=== PATIENT | female | born 1995 | race American Indian/Alaskan Native ===

== ENCOUNTER 2019-06-25 23:55 | Emergency (ER) | payer OTHER ==
[2019-06-26] MEDS ORDERED: SODIUM CHLORIDE 0.9% 1000 ML 1,000 ML IV ONE (01:18)
[2019-06-26 01:29] LABS: Hematocrit 41.9 % (30.3-42.9); Hemoglobin 13.5 gm/dl (10.1-14.3); Mean Corpuscular HGB Conc 32 % (30-34); Mean Corpuscular Volume 82 fl (79-97); Platelet Count 255 K/mm3 (140-440); Red Blood Count 5.11 M/mm3 (3.65-5.03); Red Cell Distribution Width 13.2 % (13.2-15.2)
[2019-06-26 01:46] LABS: Alanine Aminotransferase 18 units/L (7-56); Albumin 3.7 g/dL (3.9-5); BUN/Creatinine Ratio 13; Blood Urea Nitrogen 12 mg/dL (7-17); Calcium 9.1 mg/dL (8.4-10.2); Hemolysis Index 0
[2019-06-26 02:04] LABS: Bacteria,Urine 1+ /HPF (Negative); Bilirubin,Urine NEG (Negative); Blood,Urine LG (Negative); Color,Urine Yellow (Yellow); Mucus,Urine FEW /HPF; Urobilinogen,Urine < 2.0 mg/dL (<2.0)
[2019-06-26] MEDS ORDERED: ONDANSETRON 4 MG/2 ML INJ ONE (02:19)
[2019-06-26] MEDS ORDERED: INSULIN REGULAR, HUMAN 100 UNITS/1 ML IV ONE (02:20)
[2019-06-26] MEDS ORDERED: INSULIN REGULAR, HUMAN 100 UNITS/1 ML ONE (02:20)
[2019-06-26] MEDS ORDERED: ONDANSETRON 4 MG/2 ML INJ IV ONE (02:21)
[2019-06-26 02:24] LABS: HCG Qualitative,Urine Negative (Negative)
[2019-06-26 02:35] LABS: Basophils % (Manual) 0 % (0.0-1.8); Eosinophils % (Manual) 0 % (0.0-4.3); RBC Morphology Normal; Total Cells Counted 100
--- NOTE | 2019-06-26 03:46 | Emergency Department Report ---
ED Abdominal Pain HPI - General Chief Complaint: Hyperglycemia Stated Complaint: HYPERGLYCEMIA Time Seen by Provider: 06/26/19 01:04 Source: patient, EMS Mode of arrival: Stretcher Limitations: No Limitations - History of Present Illness Initial Comments: 23-year-old female with history of diabetes presents to ED with abdominal pain, nausea vomiting, elevated glucose x2 days. Patient states she has been out of her levemir. States her glucose is been in the 400s. She reports associated nausea and vomiting. She also reports suprapubic and right lower quadrant tenderness. She denies dysuria, reports urinary frequency. Patient denies any cough or sore throat. She denies any sick contacts, denies any known exposure to anyone with coronavirus. MD Complaint: abdominal pain -: days(s) (2) Location: RLQ, suprapubic Radiation: R flank Severity: moderate Consistency: constant Improves With: nothing Worsens With: nothing Associated Symptoms: nausea, vomiting, fever (subjective). denies: dysuria - Related Data Previous Rx's Medication Instructions Recorded Last Taken Type Ciprofloxacin HCl [Ciprofloxacin 500 mg PO Q12HR 7 Days #14 tab 06/26/19 Unknown Rx TAB] Insulin Detemir [Levemir] 22 unit SQ QHS #1 vial 06/26/19 Unknown Rx Phenazopyridine [Pyridium] 200 mg PO TID #6 tab 06/26/19 Unknown Rx traMADoL [Ultram] 50 mg PO Q6HR PRN #7 tablet 06/26/19 Unknown Rx Allergies Allergy/AdvReac Type Severity Reaction Status Date / Time No Known Allergies Allergy Verified 06/26/19 02:31 ED Review of Systems ROS: Stated complaint: HYPERGLYCEMIA Other details as noted in HPI Comment: All other systems reviewed and negative Constitutional: chills, fever Respiratory: denies: cough, shortness of breath Gastrointestinal: abdominal pain, nausea, vomiting. denies: diarrhea Genitourinary: frequency. denies: dysuria ED Past Medical Hx - Past Medical History Previous Medical History?: Yes Hx Diabetes: Yes - Surgical History Past Surgical History?: No - Social History Smoking Status: Never Smoker Substance Use Type: None - Medications Home Medications: Home Medications Medication Instructions Recorded Confirmed Last Taken Type Ciprofloxacin HCl [Ciprofloxacin 500 mg PO Q12HR 7 Days #14 tab 06/26/19 Unknown Rx TAB] Insulin Detemir [Levemir] 22 unit SQ QHS #1 vial 06/26/19 Unknown Rx Phenazopyridine [Pyridium] 200 mg PO TID #6 tab 06/26/19 Unknown Rx traMADoL [Ultram] 50 mg PO Q6HR PRN #7 tablet 06/26/19 Unknown Rx ED Physical Exam - General Limitations: No Limitations General appearance: alert, in no apparent distress - Head Head exam: Present: atraumatic, normocephalic - Eye Eye exam: Present: normal appearance - ENT ENT exam: Present: mucous membranes moist - Neck Neck exam: Present: normal inspection - Respiratory Respiratory exam: Present: normal lung sounds bilaterally. Absent: respiratory distress - Cardiovascular Cardiovascular Exam: Present: normal rhythm, tachycardia - GI/Abdominal GI/Abdominal exam: Present: soft, tenderness (RLQ and suprapubic). Absent: distended - Extremities Exam Extremities exam: Present: normal inspection - Back Exam Back exam: Absent: CVA tenderness (R), CVA tenderness (L) - Neurological Exam Neurological exam: Present: alert, oriented X3 - Psychiatric Psychiatric exam: Present: normal affect, normal mood - Skin Skin exam: Present: warm, dry, intact, normal color ED Course Vital Signs 06/25/19 06/26/19 06/26/19 23:59 01:12 03:55 Temperature 99.1 F 98.5 F Pulse Rate 113 H 110 H 98 H Respiratory 18 18 20 Rate Blood Pressure 157/96 Blood Pressure 151/96 173/103 [Left] O2 Sat by Pulse 98 97 98 Oximetry ED Medical Decision Making - Lab Data Result diagrams: 06/26/19 00:53 06/26/19 00:53 - Radiology Data Radiology results: report reviewed, image reviewed - Medical Decision Making - pt not in DKA - IV fluids, insulin, pain meds given - pt feeling much better, no emesis in ED - pt has UTI; CT scan negative for any acute intraabdominal findings - prescriptions given, including refill for levemir - outpt f/u advised, return precautions given - Differential Diagnosis DKA, , UTI, appendicitis Critical care attestation.: If time is entered above; I have spent that time in minutes in the direct care of this critically ill patient, excluding procedure time. ED Disposition Clinical Impression: Hyperglycemia, UTI (urinary tract infection) Disposition: TO HOME OR SELFCARE Is pt being admited?: No Condition: Stable Instructions: Diabetic Hyperglycemia (ED), Urinary Tract Infection in Women (ED) Prescriptions: Insulin Detemir [Levemir] 22 unit SQ QHS #1 vial Ciprofloxacin HCl [Ciprofloxacin TAB] 500 mg PO Q12HR 7 Days #14 tab Phenazopyridine [Pyridium] 200 mg PO TID #6 tab traMADoL [Ultram] 50 mg PO Q6HR PRN #7 tablet PRN Reason: Pain Referrals: HAILEY MCDANIEL MD [Primary Care Provider] - 3-5 Days [facility] [Provider Group] - 3-5 Days RICARDO ALBERTS MD [Staff Physician] - 3-5 Days Time of Disposition: 04:23
--- NOTE | 2019-06-26 03:57 | Cat Scan Report ---
CT ABDOMEN AND PELVIS WITH CONTRAST INDICATION / CLINICAL INFORMATION: Pt complains of R.L.Q. abdominal pain with N/V.. TECHNIQUE: Axial CT images were obtained through the abdomen and pelvis after 100 mL Omnipaque [address] scans at this location are performed using CT dose reduction for ALARA by means of automated exposure control. COMPARISON: None available. FINDINGS: LOWER CHEST: No significant abnormality. LIVER: No significant abnormality. GALLBLADDER: No significant abnormality. BILE DUCTS: No significant abnormality. PANCREAS: No significant abnormality. SPLEEN: No significant abnormality. ADRENALS: No significant abnormality. RIGHT KIDNEY and URETER: Several punctate intrarenal stones. No ureteral stone or hydronephrosis. LEFT KIDNEY and URETER: Several punctate intrarenal stones. No ureteral stone or hydronephrosis. STOMACH and SMALL BOWEL: No significant abnormality. COLON: No significant abnormality. APPENDIX: No significant abnormality. PERITONEUM: No free fluid. No free air. No fluid collection. LYMPH NODES: No significant adenopathy. AORTA and ARTERIES: No significant abnormality. IVC and VEINS: No significant abnormality. URINARY BLADDER: No significant abnormality. REPRODUCTIVE ORGANS: No significant abnormality. ADDITIONAL FINDINGS: None. SKELETAL SYSTEM: No significant abnormality. IMPRESSION: 1. Tiny punctate bilateral intrarenal stones but no ureteral stone or hydronephrosis. 2. No inflammatory process or bowel obstruction. Signer Name: Georgia Miller MD Signed: 06/26/2019 3:53 AM Workstation Name: [email or web address]
[2019-06-26] MEDS ORDERED: KETOROLAC 30 MG/1 ML INJ ONE (04:12)
[2019-06-26] MEDS ORDERED: KETOROLAC 30 MG/1 ML INJ IV ONE (04:18)
[2019-06-26 04:45] VITALS: BP 156/95
== END 2019-06-26 04:44 | disposition home or self-care (01) ==
LOC: ED 23:55
DX: E11.65 Type 2 diabetes mellitus with hyperglycemia (principal); N39.0 Urinary tract infection, site not specified; Z79.899 Other long term (current) drug therapy
CPT/HCPCS: 36415; 74177; 80053; 81001; 81025; 82805; 82962; 85007; 85025; 87086; 96361; 96374; 96375; 99284; J1885; J2405; J7030; Q9967; J1815

== ENCOUNTER 2019-06-27 17:31 | Emergency (ER) | payer SELFPAY ==
[2019-06-27] MEDS ORDERED: MORPHINE 4 MG/1 ML INJ IV ONE (18:30)
[2019-06-27] MEDS ORDERED: SODIUM CHLORIDE 0.9% 1000 ML 1,000 ML IV ONE ×2 (18:30)
[2019-06-27] MEDS ORDERED: ONDANSETRON 4 MG/2 ML INJ IV ONE (18:30)
--- NOTE | 2019-06-27 18:35 | Emergency Department Report ---
ED General Adult HPI - General Chief complaint: Abdominal Pain Stated complaint: N/V/ Time Seen by Provider: 06/27/19 18:24 Source: patient Mode of arrival: Ambulatory Limitations: No Limitations - History of Present Illness Initial comments: Patient is a 23-year-old female presents emergency room complaints of nausea and vomiting that began 4 days ago. She has associated suprapubic abdominal discomfort. Patient was evaluated in the emergency department on 06/25/2019 and diagnosed with UTI and given prescription for Pyridium, ciprofloxacin, tramadol, refill of her insulin. she had a CT abd pelvis at that time which showed intrarenal stones, otherwise no acute abnormality. She states that she has not been able to keep the pain medication or antibiotic down due to vomiting. She states that she is unable to tolerate p.o. intake. She denies any diarrhea, hematemesis, back pain, any other symptoms. She has a past medical history of insulin-dependent diabetes. She denies any allergies to medications. She states her last menstrual cycle was in March and that she has irregular cycles. - Related Data Previous Rx's Medication Instructions Recorded Last Taken Type Ciprofloxacin HCl [Ciprofloxacin 500 mg PO Q12HR 7 Days #14 tab 06/26/19 Unknown Rx TAB] Insulin Detemir [Levemir] 22 unit SQ QHS #1 vial 06/26/19 Unknown Rx Phenazopyridine [Pyridium] 200 mg PO TID #6 tab 06/26/19 Unknown Rx traMADoL [Ultram] 50 mg PO Q6HR PRN #7 tablet 06/26/19 Unknown Rx HYDROcodone/APAP 5-325 [[place] 1 each PO Q6HR PRN #10 tablet 06/27/19 Unknown Rx 5/325] Ondansetron [Zofran Odt] 4 mg PO Q8HR PRN #14 tab.rapdis 06/27/19 Unknown Rx Allergies Allergy/AdvReac Type Severity Reaction Status Date / Time No Known Allergies Allergy Verified 06/26/19 02:31 ED Review of Systems ROS: Stated complaint: N/V/ Other details as noted in HPI Comment: All other systems reviewed and negative ED Past Medical Hx - Past Medical History Previous Medical History?: Yes Hx Diabetes: Yes - Surgical History Past Surgical History?: No - Social History Smoking Status: Never Smoker Substance Use Type: None - Medications Home Medications: Home Medications Medication Instructions Recorded Confirmed Last Taken Type Ciprofloxacin HCl [Ciprofloxacin 500 mg PO Q12HR 7 Days #14 tab 06/26/19 Unknown Rx TAB] Insulin Detemir [Levemir] 22 unit SQ QHS #1 vial 06/26/19 Unknown Rx Phenazopyridine [Pyridium] 200 mg PO TID #6 tab 06/26/19 Unknown Rx traMADoL [Ultram] 50 mg PO Q6HR PRN #7 tablet 06/26/19 Unknown Rx HYDROcodone/APAP 5-325 [[place] 1 each PO Q6HR PRN #10 tablet 06/27/19 Unknown Rx 5/325] Ondansetron [Zofran Odt] 4 mg PO Q8HR PRN #14 tab.rapdis 06/27/19 Unknown Rx ED Physical Exam - General Limitations: No Limitations General appearance: alert, in no apparent distress - Head Head exam: Present: atraumatic, normocephalic - Eye Eye exam: Present: normal appearance - ENT ENT exam: Present: mucous membranes dry - Respiratory Respiratory exam: Present: normal lung sounds bilaterally. Absent: respiratory distress, wheezes, rales, rhonchi, stridor, chest wall tenderness, accessory muscle use, decreased breath sounds, prolonged expiratory - Cardiovascular Cardiovascular Exam: Present: regular rate, normal rhythm, normal heart sounds. Absent: systolic murmur, diastolic murmur, rubs, gallop - GI/Abdominal GI/Abdominal exam: Present: soft, normal bowel sounds, other (protuberant abdom en). Absent: distended, tenderness, guarding, rebound, rigid - Back Exam Back exam: Absent: CVA tenderness (R), CVA tenderness (L) - Neurological Exam Neurological exam: Present: alert, oriented X3 - Psychiatric Psychiatric exam: Present: normal affect, normal mood - Skin Skin exam: Present: warm, dry, intact ED Course Vital Signs 06/27/19 06/27/19 17:39 22:03 Temperature 97.8 F 98.8 F Pulse Rate 121 H 97 H Respiratory 20 16 Rate Blood Pressure 148/100 Blood Pressure 167/93 [Left] O2 Sat by Pulse 99 99 Oximetry ED Medical Decision Making - Lab Data Result diagrams: 06/27/19 18:04 06/27/19 20:42 Lab Results 06/27/19 06/27/19 06/27/19 Range/Units 17:56 18:04 18:04 WBC 13.6 H (4.5-11.0) K/mm3 RBC 4.86 (3.65-5.03) M/mm3 Hgb 12.6 (10.1-14.3) gm/dl Hct 39.9 (30.3-42.9) % MCV 82 (79-97) fl MCH 26 L (28-32) pg MCHC 32 (30-34) % RDW 13.4 (13.2-15.2) % Plt Count 231 (140-440) K/mm3 Lymph % (Auto) 4.4 L (13.4-35.0) % [place] % (Auto) 7.1 (0.0-7.3) % Eos % (Auto) 0.0 (0.0-4.3) % Baso % (Auto) 0.4 (0.0-1.8) % Lymph # 0.6 L (1.2-5.4) K/mm3 [place] # 1.0 H (0.0-0.8) K/mm3 Eos # 0.0 (0.0-0.4) K/mm3 Baso # 0.1 (0.0-0.1) K/mm3 Seg Neutrophils % 88.1 H (40.0-70.0) % Seg Neutrophils # 12.0 H (1.8-7.7) K/mm3 VBG pH (7.320-7.420) Sodium 129 L (137-145) mmol/L Potassium 4.2 (3.6-5.0) mmol/L Chloride 89.9 L (98-107) mmol/L Carbon Dioxide 14 L D (22-30) mmol/L Anion Gap 29 mmol/L BUN 12 (7-17) mg/dL Creatinine 0.9 (0.7-1.2) mg/dL Estimated GFR > 60 ml/min BUN/Creatinine Ratio 13 % Glucose 354 H (65-100) mg/dL POC Glucose 307 H (70-105) Calcium 9.2 (8.4-10.2) mg/dL Total Bilirubin 1.20 (0.1-1.2) mg/dL AST 15 (5-40) units/L ALT 21 (7-56) units/L Alkaline Phosphatase 83 (35-129) units/L Total Protein 8.7 H (6.3-8.2) g/dL Albumin 3.6 L (3.9-5) g/dL Albumin/Globulin Ratio 0.7 % Lipase (13-60) units/L HCG, Qual (Negative) Urine Color (Yellow) Urine Turbidity (Clear) Urine pH (5.0-7.0) Ur Specific [place] (1.003-1.030) Urine Protein (Negative) mg/dL Urine Glucose (UA) (Negative) mg/dL Urine Ketones (Negative) mg/dL Urine Blood (Negative) Urine Nitrite (Negative) Urine Bilirubin (Negative) Urine Urobilinogen (<2.0) mg/dL Ur Leukocyte Esterase (Negative) Urine WBC (Auto) (0.0-6.0) /HPF Urine RBC (Auto) (0.0-6.0) /HPF U Epithel Cells (Auto) (0-13.0) /HPF Urine Mucus /HPF 06/27/19 06/27/19 06/27/19 Range/Units 18:04 18:04 18:29 WBC (4.5-11.0) K/mm3 RBC (3.65-5.03) M/mm3 Hgb (10.1-14.3) gm/dl Hct (30.3-42.9) % MCV (79-97) fl MCH (28-32) pg MCHC (30-34) % RDW (13.2-15.2) % Plt Count (140-440) K/mm3 Lymph % (Auto) (13.4-35.0) % [place] % (Auto) (0.0-7.3) % Eos % (Auto) (0.0-4.3) % Baso % (Auto) (0.0-1.8) % Lymph # (1.2-5.4) K/mm3 [place] # (0.0-0.8) K/mm3 Eos # (0.0-0.4) K/mm3 Baso # (0.0-0.1) K/mm3 Seg Neutrophils % (40.0-70.0) % Seg Neutrophils # (1.8-7.7) K/mm3 VBG pH 7.343 (7.320-7.420) Sodium (137-145) mmol/L Potassium (3.6-5.0) mmol/L Chloride (98-107) mmol/L Carbon Dioxide (22-30) mmol/L Anion Gap mmol/L BUN (7-17) mg/dL Creatinine (0.7-1.2) mg/dL Estimated GFR ml/min BUN/Creatinine Ratio % Glucose (65-100) mg/dL POC Glucose (70-105) Calcium (8.4-10.2) mg/dL Total Bilirubin (0.1-1.2) mg/dL AST (5-40) units/L ALT (7-56) units/L Alkaline Phosphatase (35-129) units/L Total Protein (6.3-8.2) g/dL Albumin (3.9-5) g/dL Albumin/Globulin Ratio % Lipase 14 (13-60) units/L HCG, Qual Negative (Negative) Urine Color (Yellow) Urine Turbidity (Clear) Urine pH (5.0-7.0) Ur Specific [place] (1.003-1.030) Urine Protein (Negative) mg/dL Urine Glucose (UA) (Negative) mg/dL Urine Ketones (Negative) mg/dL Urine Blood (Negative) Urine Nitrite (Negative) Urine Bilirubin (Negative) Urine Urobilinogen (<2.0) mg/dL Ur Leukocyte Esterase (Negative) Urine WBC (Auto) (0.0-6.0) /HPF Urine RBC (Auto) (0.0-6.0) /HPF U Epithel Cells (Auto) (0-13.0) /HPF Urine Mucus /HPF 06/27/19 06/27/19 Range/Units 19:30 20:42 WBC (4.5-11.0) K/mm3 RBC (3.65-5.03) M/mm3 Hgb (10.1-14.3) gm/dl Hct (30.3-42.9) % MCV (79-97) fl MCH (28-32) pg MCHC (30-34) % RDW (13.2-15.2) % Plt Count (140-440) K/mm3 Lymph % (Auto) (13.4-35.0) % [place] % (Auto) (0.0-7.3) % Eos % (Auto) (0.0-4.3) % Baso % (Auto) (0.0-1.8) % Lymph # (1.2-5.4) K/mm3 [place] # (0.0-0.8) K/mm3 Eos # (0.0-0.4) K/mm3 Baso # (0.0-0.1) K/mm3 Seg Neutrophils % (40.0-70.0) % Seg Neutrophils # (1.8-7.7) K/mm3 VBG pH (7.320-7.420) Sodium 134 L (137-145) mmol/L Potassium 4.5 (3.6-5.0) mmol/L Chloride 98.1 (98-107) mmol/L Carbon Dioxide 16 L (22-30) mmol/L Anion Gap 24 mmol/L BUN 11 (7-17) mg/dL Creatinine 0.8 (0.7-1.2) mg/dL Estimated GFR > 60 ml/min BUN/Creatinine Ratio 14 % Glucose 291 H (65-100) mg/dL POC Glucose (70-105) Calcium 8.5 (8.4-10.2) mg/dL Total Bilirubin (0.1-1.2) mg/dL AST (5-40) units/L ALT (7-56) units/L Alkaline Phosphatase (35-129) units/L Total Protein (6.3-8.2) g/dL Albumin (3.9-5) g/dL Albumin/Globulin Ratio % Lipase (13-60) units/L HCG, Qual (Negative) Urine Color Yellow (Yellow) Urine Turbidity Clear (Clear) Urine pH 5.0 (5.0-7.0) Ur Specific [place] 1.017 (1.003-1.030) Urine Protein 100 mg/dl (Negative) mg/dL Urine Glucose (UA) >=500 (Negative) mg/dL Urine Ketones 80 (Negative) mg/dL Urine Blood Mod (Negative) Urine Nitrite Neg (Negative) Urine Bilirubin Neg (Negative) Urine Urobilinogen < 2.0 (<2.0) mg/dL Ur Leukocyte Esterase Neg (Negative) Urine WBC (Auto) 10.0 H (0.0-6.0) /HPF Urine RBC (Auto) 4.0 (0.0-6.0) /HPF U Epithel Cells (Auto) 6.0 (0-13.0) /HPF Urine Mucus Few /HPF Vital Signs 06/27/19 06/27/19 17:39 22:03 Temperature 97.8 F 98.8 F Pulse Rate 121 H 97 H Respiratory 20 16 Rate Blood Pressure 148/100 Blood Pressure 167/93 [Left] O2 Sat by Pulse 99 99 Oximetry - Medical Decision Making Patient is a 23-year-old female presents emergency room complaints of nausea and vomiting that began 4 days ago. She has associated suprapubic abdominal discomfort. Patient was evaluated in the emergency department on 06/25/2019 and diagnosed with UTI and given prescription for Pyridium, ciprofloxacin, tramadol, refill of her insulin. she had a CT abd pelvis at that time which showed intrarenal stones, otherwise no acute abnormality. She states that she has not been able to keep the pain medication or antibiotic down due to vomiting. She states that she is unable to tolerate p.o. intake. She denies any diarrhea, hematemesis, back pain, any other symptoms. She has a past medical history of insulin-dependent diabetes. She denies any allergies to medications. She states her last menstrual cycle was in March and that she has irregular cycles. Initial vitals with tachycardia which improved upon repeat. White blood cell count has improved from last visit. Labs show signs of dehydration. Venous pH is normal. Patient given 2 L of normal saline IV, Zofran, pain medications and symptoms improved. Dehydration has improved. Patient was able to tolerate p.o. intake without difficulty. Discussed case with Dr. Gross, ER attending who agreed with treatment plan and discharge home. Patient given prescription for Zofran and [place]. Discussed in detail with patient the importance of oral rehydration. Discussed strict return precautions with patient. Advised patient Please increase your water intake over the next several days. Please take medication as prescribed. Do not drive or operate heavy machinery while taking pain medication. Eat a bland diet. Avoid anything sugary or greasy. Please finish your antibiotics given during your last emergency room visit. Please follow-up with a primary care doctor for reexamination. Return to the emergency room immediately for any new or wor sening symptoms. - Differential Diagnosis UTI, gastritis, gastroenteritis, DKA, dehydration, electrolyte disturbance Critical care attestation.: If time is entered above; I have spent that time in minutes in the direct care of this critically ill patient, excluding procedure time. ED Disposition Clinical Impression: Suprapubic abdominal pain Nausea & vomiting Qualifiers: Vomiting type: unspecified Vomiting Intractability: non-intractable Qualified Code(s): R11.2 - Nausea with vomiting, unspecified Disposition: DC-01 TO HOME OR SELFCARE Is pt being admited?: No Does the pt Need Aspirin: No Condition: Stable Instructions: Acute Nausea and Vomiting (ED), Abdominal Pain (ED) Additional Instructions: Please increase your water intake over the next several days. Please take medication as prescribed. Do not drive or operate heavy machinery while taking pain medication. Eat a bland diet. Avoid anything sugary or greasy. Please finish your antibiotics given during your last emergency room visit. Please follow-up with a primary care doctor for reexamination. Return to the emergency room immediately for any new or worsening symptoms. Prescriptions: HYDROcodone/APAP 5-325 [[place] 5/325] 1 each PO Q6HR PRN #10 tablet PRN Reason: Pain , Severe (7-10) Ondansetron [Zofran Odt] 4 mg PO Q8HR PRN #14 tab.rapdis PRN Reason: Nausea And Vomiting Referrals: RICARDO ALBERTS MD [Staff Physician] - 3-5 Days [facility] [Provider Group] - 3-5 Days [facility] [Provider Group] - 3-5 Days Time of Disposition: 21:41 Print Language: BANGLADESHI
[2019-06-27 18:40] LABS: Basophils # (Auto) 0.1 K/mm3 (0.0-0.1); Basophils % (Auto) 0.4 % (0.0-1.8); Hematocrit 39.9 % (30.3-42.9); Hemoglobin 12.6 gm/dl (10.1-14.3); Lymphocytes # (Auto) 0.6 K/mm3 (1.2-5.4); Lymphocytes % (Auto) 4.4 % (13.4-35.0); Mean Corpuscular HGB Conc 32 % (30-34); Mean Corpuscular Volume 82 fl (79-97); Monocytes % (Auto) 7.1 % (0.0-7.3); Platelet Count 231 K/mm3 (140-440); Red Blood Count 4.86 M/mm3 (3.65-5.03); Red Cell Distribution Width 13.4 % (13.2-15.2)
[2019-06-27] MEDS ORDERED: cefTRIAXone/NS 1 GM/50 ML 1 GM/50 ML BAG IV ONE (18:51)
[2019-06-27 18:55] LABS: Alanine Aminotransferase 21 units/L (7-56); Albumin 3.6 g/dL (3.9-5); BUN/Creatinine Ratio 13; Blood Urea Nitrogen 12 mg/dL (7-17); Calcium 9.2 mg/dL (8.4-10.2); Hemolysis Index 0
[2019-06-27 19:40] LABS: Bilirubin,Urine NEG (Negative); Blood,Urine MOD (Negative); Color,Urine Yellow (Yellow); Mucus,Urine FEW /HPF; Urobilinogen,Urine < 2.0 mg/dL (<2.0)
[2019-06-27] MEDS ORDERED: KETOROLAC 30 MG/1 ML INJ IV ONE (20:50)
[2019-06-27] MEDS ORDERED: HYDROmorphone 1 MG/1 ML INJ IV ONE (20:56)
[2019-06-27 21:30] LABS: BUN/Creatinine Ratio 14; Blood Urea Nitrogen 11 mg/dL (7-17); Calcium 8.5 mg/dL (8.4-10.2); Hemolysis Index 29
[2019-06-27 22:05] VITALS: BP 167/93
== END 2019-06-27 22:03 | disposition home or self-care (01) ==
LOC: ED 17:31
DX: R11.2 Nausea with vomiting, unspecified (principal); R10.2 Pelvic and perineal pain; E11.9 Type 2 diabetes mellitus without complications; Z79.899 Other long term (current) drug therapy; Z79.2 Long term (current) use of antibiotics; Z79.4 Long term (current) use of insulin; Z88.8 Allergy status to other drugs, medicaments and biological substances
CPT/HCPCS: 36415; 80048; 80053; 81001; 82805; 82962; 83690; 84703; 85025; 87086; 96361; 96365; 96375; 99283; J0696; J1170; J1885; J2270; J2405; J7030

== ENCOUNTER 2019-06-28 22:02 | Inpatient (IN) | payer OTHER ==
[2019-06-28] MEDS ORDERED: FAMOTIDINE 20 MG/2 ML INJ IV ONE (22:36)
[2019-06-28] MEDS ORDERED: SODIUM CHLORIDE 0.9% 1000 ML 2,000 ML IV ONE (22:36)
[2019-06-28] MEDS ORDERED: HALOPERIDOL LACTATE 5 MG/1 ML INJ IM STA (22:36)
[2019-06-28 23:14] LABS: Hematocrit 41.9 % (30.3-42.9)
--- NOTE | 2019-06-28 23:24 | Emergency Department Report ---
ED General Adult HPI - General Chief complaint: Nausea/Vomiting/Diarrhea Stated complaint: NAUSEA AND VOMITING X'S 5 DAYS Time Seen by Provider: 06/28/19 22:16 PUI?: No Source: patient, EMS ( EMS documentation not available at time of chart dictation ), RN notes reviewed, old records reviewed Mode of arrival: Stretcher Limitations: No Limitations - History of Present Illness Initial comments: Patient is a 23-year-old female. She is not known to myself previously. She is a diabetic, and was reportedly diagnosed with diabetes a few years ago at [facility] [place]. She is not quite sure where her diabetes came from. She was prescribed a long-acting insulin, but had difficulty affording it, secondary to "I could not afford the $400." This is her third visit here to this department within the past week. She has been seen here multiple times for abdominal cramping, nausea vomiting, and hyperglycemia. She had a negative test. She has been having suprapubic and right lower quadrant pain for about the past week. It is associated with intractable nausea and vomiting. Patient states that she was admitted to the hospital last year for something similar, and "they treated my sugar in my urine, and I got better." The patient makes no complaint of headache, neck pain, chest pain, exertional shortness of breath, she also denies dysuria, hematuria and urinary discomfort as well as vaginal discharge. She does have a distant history of chlamydia. She is sexually active with one partner, and reports intermittent condom use. She is not sure if this feels like chlamydia. She was prescribed medication during previous evaluations for presumed urinary tract infection, with negative cultures, and multiple rounds of nausea and pain medicine. She is persistently throwing up as per her history. She denies tobacco consumption and marijuana consumption and does have intermittent relief with hot shower. -: Gradual, days(s) Location: abdomen Consistency: constant Improves with: rest Worsens with: movement, other (Vomiting) - Related Data Previous Rx's Medication Instructions Recorded Last Taken Type Ciprofloxacin HCl [Ciprofloxacin 500 mg PO Q12HR 7 Days #14 tab 06/26/19 06/28/19 Rx TAB] Insulin Detemir [Levemir] 22 unit SQ QHS #1 vial 06/26/19 Unknown Rx HYDROcodone/APAP 5-325 [[place] 1 each PO Q6HR PRN #10 tablet 06/27/19 06/28/19 Rx 5/325] Ondansetron [Zofran Odt] 4 mg PO Q8HR PRN #14 tab.rapdis 06/27/19 Unknown Rx Allergies Allergy/AdvReac Type Severity Reaction Status Date / Time tramadol AdvReac Vomiting Verified 06/29/19 00:45 ED Review of Systems ROS: Stated complaint: NAUSEA AND VOMITING X'S 5 DAYS Other details as noted in HPI Constitutional: malaise. denies: fever Eyes: denies: eye discharge Respiratory: denies: wheezing Cardiovascular: denies: syncope Gastrointestinal: abdominal pain, nausea, vomiting Genitourinary: as per HPI. denies: dysuria Musculoskeletal: as per HPI Skin: as per HPI Neurological: weakness Psychiatric: as per HPI Hematological/Lymphatic: as per HPI ED Past Medical Hx - Past Medical History Hx Diabetes: Yes - Social History Smoking Status: Never Smoker Substance Use Type: None - Medications Home Medications: Home Medications Medication Instructions Recorded Confirmed Last Taken Type Ciprofloxacin HCl [Ciprofloxacin 500 mg PO Q12HR 7 Days #14 tab 06/26/19 06/29/19 06/28/19 Rx TAB] Insulin Detemir [Levemir] 22 unit SQ QHS #1 vial 06/26/19 06/29/19 Unknown Rx HYDROcodone/APAP 5-325 [[place] 1 each PO Q6HR PRN #10 tablet 06/27/19 06/29/19 06/28/19 Rx 5/325] Ondansetron [Zofran Odt] 4 mg PO Q8HR PRN #14 tab.rapdis 06/27/19 06/29/19 Unknown Rx ED Physical Exam - General Limitations: No Limitations General appearance: alert, in no apparent distress, obese - Head Head exam: Present: atraumatic, normocephalic - Eye Eye exam: Present: normal appearance, EOMI - ENT ENT exam: Present: normal exam, normal orophraynx, mucous membranes moist, normal external ear exam - Neck Neck exam: Present: normal inspection, full ROM. Absent: tenderness, meningismus - Respiratory Respiratory exam: Present: normal lung sounds bilaterally. Absent: respiratory distress - Cardiovascular Cardiovascular Exam: Present: normal rhythm, tachycardia, normal heart sounds. Absent: systolic murmur, diastolic murmur, rubs, gallop - GI/Abdominal GI/Abdominal exam: Present: soft. Absent: distended, tenderness, guarding, rebound, rigid, pulsatile mass - External exam: Present: erythema, lesions, other (Whitish lesions noted, suggestive of candidiasis) Speculum exam: Present: normal speculum exam, vaginal bleeding Bi-manual exam: Present: normal bi-manual exam, other (Chaperoned by Mary santos). Absent: cervical motion tendernes, adnexal tenderness, adnexal mass, uterine enlargement, uterine tenderness - Extremities Exam Extremities exam: Present: normal inspection, full ROM, other (2+ pulses noted in the bilateral upper and lower extremities. There is no palpable cord. negative Homans sign. Muscular compartments are soft. The pelvis is stable.). Absent: pedal edema, calf tenderness - Back Exam Back exam: Present: normal inspection, full ROM. Absent: tenderness, CVA tenderness (R), CVA tenderness (L), paraspinal tenderness, vertebral tenderness - Neurological Exam Neurological exam: Present: alert, normal gait, other (There is no facial droop. The tongue is midline. Extraocular movements are intact bilaterally. There is 5 out of 5 strength in bilateral upper and lower extremities. Sensation is intact to light touch bilateral upper and lower extremities. There is a normal gait.). Absent: motor sensory deficit - Psychiatric Psychiatric exam: Present: flat affect - Skin Skin exam: Present: warm, dry, intact, normal color. Absent: rash ED Course Vital Signs 06/28/19 06/28/19 06/28/19 22:08 22:10 22:15 Temperature 98.4 F Pulse Rate 102 H 99 H 101 H Respiratory 20 45 H 21 Rate Blood Pressure 178/111 178/111 O2 Sat by Pulse 98 98 Oximetry 06/28/19 06/28/19 06/28/19 22:31 22:45 23:01 Temperature Pulse Rate 104 H 106 H 109 H Respiratory 19 22 14 Rate Blood Pressure 178/111 178/111 163/109 O2 Sat by Pulse 97 98 97 Oximetry 06/28/19 06/28/19 06/28/19 23:15 23:31 23:45 Temperature Pulse Rate 102 H 105 H 97 H Respiratory 17 21 28 H Rate Blood Pressure 163/109 138/119 138/119 O2 Sat by Pulse 98 98 99 Oximetry 06/29/19 06/29/19 06/29/19 00:01 00:03 00:31 Temperature Pulse Rate 109 H 111 H 114 H Respiratory 22 24 20 Rate Blood Pressure 159/114 159/114 214/144 O2 Sat by Pulse 97 98 97 Oximetry 06/29/19 06/29/19 06/29/19 01:01 01:31 01:51 Temperature Pulse Rate 104 H 102 H 97 H Respiratory 30 H 28 H 20 Rate Blood Pressure 178/95 192/110 192/110 O2 Sat by Pulse 97 98 98 Oximetry 06/29/19 02:01 Temperature Pulse Rate 111 H Respiratory 20 Rate Blood Pressure 202/107 O2 Sat by Pulse 98 Oximetry - Reevaluation(s) Reevaluation #1: 06/28/19 23:22 Differential diagnosis, including but not limited to: Gastroparesis, dehydration, electrolyte derangement, chlamydia, constipation, functional abdominal pain Assessment and plan: 23-year-old female with what appears to be poorly controlled diabetes, multiple evaluations for nausea, vomiting and abdominal pain, recently had a CT scan of the abdomen pelvis which was negative for acute disease, urinalyses are reviewed and appreciated, did not endorse dysuria, frequency, irritative or obstructive urinary symptoms, with negative cultures, I suspect that the patient is experiencing probable gastroparesis. She declined a physical exam at this time, and requested medication. We will treat her with fluids, haloperidol, and famotidine. We will reassess. Reevaluation #2: 06/28/19 23:25 Respiratory rate of 45 that is documented is most likely an error, when I was evaluating the patient, she was not tachypneic. Reevaluation #3: 06/28/19 23:56 Laboratory studies are reviewed, suggest metabolic acidosis, and hyponatremia, suspect hypovolemic, hyponatremia, and metabolic acidosis/decreased CO2 at 11. When the patient was here yesterday, she also had an anion gap acidosis, and CO2 of 15 and 14. Patient has evidence of dehydration, and electrolyte derangement, and acidosis. She meets criteria for hospitalization and admission for correction of metabolic abnormalities. Discussed this plan of care with the patient, who is amenable. [facility] physician, Dr. Aidee isidro has graciously accepted the patient to the medical service. ED Medical Decision Making - Lab Data Result diagrams: 06/29/19 05:45 06/29/19 05:45 Vital Signs 06/28/19 06/28/19 22:08 22:10 Temperature 98.4 F Pulse Rate 102 H 99 H Respiratory 20 45 H Rate Blood Pressure 178/111 O2 Sat by Pulse 98 Oximetry Lab Results 06/28/19 Range/Units 23:01 Hgb 13.0 (10.1-14.3) gm/dl Hct 41.9 (30.3-42.9) % Plt Count 255 (140-440) K/mm3 - EKG Data -: EKG Interpreted by Me EKG shows normal: sinus rhythm, axis Rate: normal - EKG Data When compared to previous EKG there are: previous EKG unavailable 06/28/19 23:24 EKG today shows sinus rhythm, 95 bpm, normal axis, QTC prolonged at 450 ms, QT 357 ms, [place] interval within normal limits, high left ventricular voltage, poor R wave progression, borderline atrial enlargement, abnormal EKG, not a STEMI, no prior for comparison. - Radiology Data Radiology results: report reviewed, image reviewed Previous CT scan abdomen pelvis is reviewed and appreciated Critical care attestation.: If time is entered above; I have spent that time in minutes in the direct care of this critically ill patient, excluding procedure time. ED Disposition Clinical Impression: Metabolic acidosis, Nausea & vomiting, Hyperglycemia, Dehydration, Hyponatremia Disposition: DC-09 OP ADMIT IP TO THIS HOSP Is pt being admited?: Yes Does the pt Need Aspirin: No Condition: Good
[2019-06-28 23:30] LABS: Alanine Aminotransferase 18 units/L (7-56); Albumin 3.3 g/dL (3.9-5); BUN/Creatinine Ratio 15; Blood Urea Nitrogen 12 mg/dL (7-17); Calcium 9.2 mg/dL (8.4-10.2); Hemolysis Index 10
[2019-06-29 00:15] LABS: Bacteria,Urine 2+ /HPF (Negative); Bilirubin,Urine NEG (Negative); Blood,Urine LG (Negative); Color,Urine Yellow (Yellow); Mucus,Urine FEW /HPF; Urobilinogen,Urine < 2.0 mg/dL (<2.0)
[2019-06-29 00:21] LABS: Protein,Urine >500 mg/dL (Negative)
--- NOTE | 2019-06-29 01:55 | History and Physical Report ---
History of Present Illness Date of examination: 06/28/19 Date of admission: 06/29/19 00:00 Chief complaint: Persistent vomiting for 3 days + History of present illness: 23-year-old with history of type 1 diabetes on long-acting insulin Levemir 22 units at nighttime and not taking her Levemir because of the cost involved comes in for recurrent vomiting for the last 3 days. Patient is seen in the emergency room for the last 3 days and wrote and was discharged. Patient's blood glucose levels have been high. Vomiting about 4-6 times a day. No diarrhea. No fever or chills. Patient also has been having suprapubic and right lower quadrant pain for about 1 week. No neck pain or cough or shortness of breath. No exposure to coronavirus. No recent travel. Past Medical History Type I diabetes: Yes Social History Smoking Status: Never Smoker Substance Use Type: None Surgical history N/a Family history Htn - Medications Home Medications: Home Medications Medication Instructions Recorded Confirmed Last Taken Type Ciprofloxacin HCl [Ciprofloxacin 500 mg PO Q12HR 7 Days #14 tab 06/26/19 Unknown Rx TAB] Insulin Detemir [Levemir] 22 unit SQ QHS #1 vial 06/26/19 Unknown Rx Phenazopyridine [Pyridium] 200 mg PO TID #6 tab 06/26/19 Unknown Rx traMADoL [Ultram] 50 mg PO Q6HR PRN #7 tablet 06/26/19 Unknown Rx HYDROcodone/APAP 5-325 [[place] 1 each PO Q6HR PRN #10 tablet 06/27/19 Unknown Rx 5/325] Ondansetron [Zofran Odt] 4 mg PO Q8HR PRN #14 tab.rapdis 06/27/19 Unknown Rx Review of Systems ROS: Constitutional no weight loss or weight gain no fever or chills HEENT no sore throat no post nasal drip no diplopia Neck no neck stiffness no lymph gland enlargement Chest and lungs no shortness of breath cough or wheezing CVS no chest pain no diaphoresis no palpitations GI nausea and vomiting for 3 days 4-6 times a day. Genitourinary system no dysuria no flank pain Musculoskeletal system no muscle pains no joint pains [employer] no syncope no seizures Skin no rash no itching Psychiatric no depression no homicidal or suicidal tendencies Hematologic no lymphedema or bruising Endocrine no polydipsia no polyuria no cold intolerance no heat intolerance Stated complaint: NAUSEA AND VOMITING X'S 5 DAYS Other details as noted in HPI PUI?: No Medications and Allergies Allergies Allergy/AdvReac Type Severity Reaction Status Date / Time tramadol AdvReac Vomiting Verified 06/29/19 00:45 Home Medications Medication Instructions Recorded Confirmed Last Taken Type Ciprofloxacin HCl [Ciprofloxacin 500 mg PO Q12HR 7 Days #14 tab 06/26/19 06/29/19 06/28/19 Rx TAB] Insulin Detemir [Levemir] 22 unit SQ QHS #1 vial 06/26/19 06/29/19 Unknown Rx HYDROcodone/APAP 5-325 [[place] 1 each PO Q6HR PRN #10 tablet 06/27/19 06/29/19 0 06/28/19 Rx 5/325] Ondansetron [Zofran Odt] 4 mg PO Q8HR PRN #14 tab.rapdis 06/27/19 06/29/19 Unknown Rx Exam - Constitutional Vitals: Temp Pulse Resp BP Pulse Ox 98.4 F 102 H 28 H 192/110 98 06/28/19 22:08 06/29/19 01:31 06/29/19 01:31 06/29/19 01:31 06/29/19 01:31 General appearance: Present: no acute distress, well-nourished - EENT Eyes: Present: PERRL ENT: hearing intact, clear oral mucosa - Neck Neck: Present: supple, normal ROM - Respiratory Respiratory effort: normal Respiratory: bilateral: CTA - Cardiovascular Heart rate: 95 Rhythm: regular Heart Sounds: Present: S1 & S2. Absent: rub, click - Extremities Extremities: no ischemia, pulses intact, pulses symmetrical, No edema Peripheral Pulses: within normal limits - Abdominal General gastrointestinal: Present: soft, tender, non-distended, normal bowel sounds Female genitourinary: Present: normal - Integumentary Integumentary: Present: clear, warm, dry - Musculoskeletal Musculoskeletal: gait normal, strength equal bilaterally - Psychiatric Psychiatric: appropriate mood/affect, intact judgment & insight - Neurologic Neurologic: CNII-XII intact, moves all extremities - Allied Health Allied health notes reviewed: nursing, case management Results - Labs CBC & Chem 7: 06/28/19 23:01 06/28/19 23:01 Labs: Laboratory Last Values Hgb 13.0 gm/dl (10.1-14.3) 06/28/19 23:01 Hct 41.9 % (30.3-42.9) 06/28/19 23:01 Plt Count 255 K/mm3 (140-440) 06/28/19 23:01 Sodium 128 mmol/L (137-145) L 06/28/19 23:01 Potassium 4.4 mmol/L (3.6-5.0) 06/28/19 23:01 Chloride 96.2 mmol/L (98-107) L 06/28/19 23:01 Carbon Dioxide 11 mmol/L (22-30) L 06/28/19 23:01 Anion Gap 25 mmol/L 06/28/19 23:01 BUN 12 mg/dL (7-17) 06/28/19 23:01 Creatinine 0.8 mg/dL (0.7-1.2) 06/28/19 23:01 Estimated GFR > 60 ml/min 06/28/19 23:01 BUN/Creatinine Ratio 15 % 06/28/19 23: Glucose 276 mg/dL (65-100) H 06/28/19 23:01 Calcium 9.2 mg/dL (8.4-10.2) 06/28/19 23:01 Magnesium 2.30 mg/dL (1.7-2.3) 06/28/19 23:01 Total Bilirubin 0.80 mg/dL (0.1-1.2) 06/28/19 23:01 AST 13 units/L (5-40) 06/28/19 23:01 ALT 18 units/L (7-56) 06/28/19 23:01 Alkaline Phosphatase 78 units/L (35-129) 06/28/19 23:01 Total Creatine Kinase 25 units/L (30-135) L 06/28/19 23:01 Total Protein 9.0 g/dL (6.3-8.2) H 06/28/19 23:01 Albumin 3.3 g/dL (3.9-5) L 06/28/19 23:01 Albumin/Globulin Ratio 0.6 % 06/28/19 23:01 Lipase 17 units/L (13-60) 06/28/19 23:01 Urine Color Yellow (Yellow) 06/28/19 23:50 Urine Turbidity Clear (Clear) 06/28/19 23:50 Urine pH 5.0 (5.0-7.0) 06/28/19 23:50 Ur Specific [place] 1.016 (1.003-1.030) 06/28/19 23:50 Urine Protein >500 mg/dL (Negative) 06/28/19 23:50 Urine Glucose (UA) >=500 mg/dL (Negative) 06/28/19 23:50 Urine Ketones 80 mg/dL (Negative) 06/28/19 23:50 Urine Blood Lg (Negative) 06/28/19 23:50 Urine Nitrite Neg (Negative) 06/28/19 23:50 Urine Bilirubin Neg (Negative) 06/28/19 23:50 Urine Urobilinogen < 2.0 mg/dL (<2.0) 06/28/19 23:50 Ur Leukocyte Esterase Neg (Negative) 06/28/19 23:50 Urine WBC (Auto) 7.0 /HPF (0.0-6.0) H 06/28/19 23:50 Urine RBC (Auto) 173.0 /HPF (0.0-6.0) 06/28/19 23:50 U Epithel Cells (Auto) 1.0 /HPF (0-13.0) 06/28/19 23:50 Urine Bacteria (Auto) 2+ /HPF (Negative) 06/28/19 23:50 Urine Mucus Few /HPF 06/28/19 23:50 Urine Yeast (Budding) Few /HPF 06/28/19 23:50 Short CBC 06/28/19 Range/Units 23:01 Hgb 13.0 (10.1-14.3) gm/dl Hct 41.9 (30.3-42.9) % Plt Count 255 (140-440) K/mm3 BMP 06/28/19 23:01 Sodium 128 L Potassium 4.4 Chloride 96.2 L Carbon Dioxide 11 L BUN 12 Creatinine 0.8 Glucose 276 H Calcium 9.2 Cardiac Enzymes 06/28/19 Range/Units 23:01 Total Creatine Kinase 25 L (30-135) units/L Liver Function 06/28/19 Range/Units 23:01 Total Bilirubin 0.80 (0.1-1.2) mg/dL AST 13 (5-40) units/L ALT 18 (7-56) units/L Alkaline Phosphatase 78 (35-129) units/L Albumin 3.3 L (3.9-5) g/dL Urine 06/28/19 Range/Units 23:50 Urine Color Yellow (Yellow) Urine pH 5.0 (5.0-7.0) Ur Specific [place] 1.016 (1.003-1.030) Urine Protein >500 (Negative) mg/dL Urine Glucose (UA) >=500 (Negative) mg/dL Microbiology: Microbiology 06/28/19 23:50 Vaginal Wet Prep - Final - Imaging and Cardiology EKG: report reviewed (Heart rate 95/min no acute ST-T wave changes.) Gonsales/IV: IV Catheter Type [Left Hand] Peripheral IV Assessment and Plan Advance Directives: Yes (Full code) VTE prophylaxis?: Chemical Plan of care discussed with patient/family: Yes - Patient Problems (1) Gastroparesis Current Visit: Yes Status: Acute Plan to address problem: IV Zofran and IV metoclopramide for now IV fluids. Nuclear medicine motility study was not ordered (2) Uncontrolled diabetes mellitus Current Visit: Yes Status: Acute Qualifiers: Diabetes mellitus type: type 1 Plan to address problem: Insulin subcu every 4 hours High-dose sliding scale protocol Novolin 70/30 20 units twice a day Patient cannot afford Levemir Patient was counseled that Novolin 70/30 is available for $25 at [facility] without prescription Will defer to primary team regarding discharge medications (3) Hyponatremia Current Visit: Yes Status: Acute Plan to address problem: With blood glucose levels being controlled sodium level may normalize IV normal saline for now (4) Metabolic acidosis Current Visit: Yes Status: Acute Plan to address problem: Metabolic acidosis secondary to uncontrolled diabetes and gastroparesis Corrected blood glucose levels and fluid depletion Recheck bicarb level (5) UTI (urinary tract infection) Current Visit: No Status: Acute Qualifiers: Urinary tract infection type: acute cystitis Plan to address problem: IV Rocephin for now (6) DVT prophylaxis Current Visit: Yes Status: Acute Plan to address problem: Heparin subcutaneous and GI prophylaxis
[2019-06-29] MEDS ORDERED: oxyCODONE /ACETAMINOPHEN 5-325MG TAB PO PRN (01:57)
[2019-06-29] MEDS ORDERED: METOCLOPRAMIDE 10 MG/2 ML INJ IV PRN (01:57)
[2019-06-29] MEDS ORDERED: HYDROcodone/ACETAMINOPHEN 5-325 MG TAB PO PRN (01:57)
[2019-06-29] MEDS: HYDROmorphone 1 MG/1 ML INJ IV PRN ×5 (02:55→20:24)
[2019-06-29] MEDS: HEPARIN 5,000 UNIT/1 ML VIAL SUB-Q SCH ×3 (02:56→22:38)
[2019-06-29] MEDS: SODIUM CHLORIDE 0.9% 1000 ML 1,000 ML IV SCH ×3 (03:08→21:13)
[2019-06-29] MEDS: INSULIN LISPRO 100 UNIT/ML SUB-Q SCH ×5 (03:37→19:09)
[2019-06-29] MEDS: cefTRIAXone/NS 1 GM/50 ML 1 GM/50 ML BAG IV SCH (06:02)
[2019-06-29 06:11] LABS: Basophils % (Auto) 0.2 % (0.0-1.8); Eosinophils % (Auto) 0.1 % (0.0-4.3); Hematocrit 37.1 % (30.3-42.9); Hemoglobin 11.8 gm/dl (10.1-14.3); Lymphocytes # (Auto) 1.2 K/mm3 (1.2-5.4); Lymphocytes % (Auto) 9.5 % (13.4-35.0); Mean Corpuscular HGB Conc 32 % (30-34); Mean Corpuscular Volume 84 fl (79-97); Monocytes % (Auto) 7.5 % (0.0-7.3); Platelet Count 262 K/mm3 (140-440); Red Blood Count 4.44 M/mm3 (3.65-5.03); Red Cell Distribution Width 13.3 % (13.2-15.2)
[2019-06-29 06:54] LABS: Alanine Aminotransferase 15 units/L (7-56); Albumin 3.5 g/dL (3.9-5); BUN/Creatinine Ratio 14; Blood Urea Nitrogen 13 mg/dL (7-17); Calcium 8.9 mg/dL (8.4-10.2); Hemolysis Index 1
[2019-06-29] MEDS ORDERED: INSULIN NPH/REGULAR 70/30 INJ SUB-Q SCH (08:00)
[2019-06-29] MEDS: ONDANSETRON 4 MG/2 ML INJ IV PRN ×2 (09:21→20:24)
--- NOTE | 2019-06-29 16:14 | Progress Note ---
Assessment and Plan Assessment and plan: -- Gastroparesis Current Visit: Yes Status: Acute IV Zofran and IV metoclopramide for now IV fluids. Supportive care -- Uncontrolled diabetes mellitus Current Visit: Yes Status: Acute Insulin subcu every 4 hours High-dose sliding scale protocol Novolin 70/30 20 units twice a day Patient cannot afford Levemir Patient was counseled that Novolin 70/30 is available for $25 at [facility] without prescription Will defer to primary team regarding discharge medications -- Hyponatremia/pseudohyponatremia Current Visit: Yes Status: Acute With blood glucose levels being controlled sodium level may normalize IV normal saline for now --Metabolic acidosis Current Visit: Yes Status: Acute Metabolic acidosis secondary to uncontrolled diabetes and gastroparesis Corrected blood glucose levels and fluid depletion Recheck bicarb level -- UTI (urinary tract infection) Current Visit: No Status: Acute IV Rocephin for now --Morbid obesity; BMI 43.3 patient needs weight reduction when medically stable Diet modification, exercise as tolerated and weight reduction -- DVT prophylaxis Current Visit: Yes Status: Acute Heparin subcutaneous and GI prophylaxis Monitor closely and adjust management as needed Possible discharge in 1 to 2 days if stable History Interval history: Patient seen and examined Patient's chart, medications and tests reviewed Patient complains of severe nausea and vomiting Unable to keep anything down Mild distress Vital signs reviewed PUI?: No Hospitalist Physical - Constitutional Vitals: Temp Pulse Resp BP Pulse Ox 98.2 F 104 H 16 145/92 93 06/29/19 11:37 06/29/19 11:37 06/29/19 11:37 06/29/19 11:37 06/29/19 11:37 General appearance: Present: mild distress, well-nourished, obese (Morbid obese) - EENT Eyes: Present: PERRL, EOM intact - Neck Neck: Present: supple, normal ROM - Respiratory Respiratory effort: normal Respiratory: bilateral: diminished, negative: rales, rhonchi, wheezing - Cardiovascular Rhythm: regular Heart Sounds: Present: S1 & S2 - Extremities Extremities: no ischemia, No edema - Abdominal General gastrointestinal: soft, non-tender, non-distended, normal bowel sounds - Integumentary Integumentary: Present: clear, warm - Psychiatric Psychiatric: appropriate mood/affect, cooperative - Neurologic Neurologic: moves all extremities Results - Labs CBC & Chem 7: 06/29/19 05:45 06/29/19 05:45 Labs: Laboratory Last Values WBC 12.8 K/mm3 (4.5-11.0) H 06/29/19 05:45 RBC 4.44 M/mm3 (3.65-5.03) 06/29/19 05:45 Hgb 11.8 gm/dl (10.1-14.3) 06/29/19 05:45 Hct 37.1 % (30.3-42.9) 06/29/19 05:45 MCV 84 fl (79-97) 06/29/19 05:45 MCH 27 pg (28-32) L 06/29/19 05:45 MCHC 32 % (30-34) 06/29/19 05:45 RDW 13.3 % (13.2-15.2) 06/29/19 05:45 Plt Count 262 K/mm3 (140-440) 06/29/19 05:45 Lymph % (Auto) 9.5 % (13.4-35.0) L 06/29/19 05:45 [place] % (Auto) 7.5 % (0.0-7.3) H 06/29/19 05:45 Eos % (Auto) 0.1 % (0.0-4.3) 06/29/19 05:45 Baso % (Auto) 0.2 % (0.0-1.8) 06/29/19 05:45 Lymph # 1.2 K/mm3 (1.2-5.4) 06/29/19 05:45 [place] # 1.0 K/mm3 (0.0-0.8) H 06/29/19 05:45 Eos # 0.0 K/mm3 (0.0-0.4) 06/29/19 05:45 Baso # 0.0 K/mm3 (0.0-0.1) 06/29/19 05:45 Seg Neutrophils % 82.7 % (40.0-70.0) H 06/29/19 05:45 Seg Neutrophils # 10.6 K/mm3 (1.8-7.7) H 06/29/19 05:45 Sodium 133 mmol/L (137-145) L 06/29/19 05:45 Potassium 4.4 mmol/L (3.6-5.0) 06/29/19 05:45 Chloride 98.4 mmol/L (98-107) 06/29/19 05:45 Carbon Dioxide 13 mmol/L (22-30) L 06/29/19 05:45 Anion Gap 26 mmol/L 06/29/19 05:45 BUN 13 mg/dL (7-17) 06/29/19 05:45 Creatinine 0.9 mg/dL (0.7-1.2) 06/29/19 05:45 Estimated GFR > 60 ml/min 06/29/19 05:45 BUN/Creatinine Ratio 14 % 06/29/19 05:45 Glucose 262 mg/dL (65-100) H 06/29/19 05:45 POC Glucose 222 (70-105) H 06/29/19 11:47 Hemoglobin A1c 10.1 % (4-6) H 06/29/19 05:45 Calcium 8.9 mg/dL (8.4-10.2) 06/29/19 05:45 Magnesium 2.30 mg/dL (1.7-2.3) 06/28/19 23:01 Total Bilirubin 0.60 mg/dL (0.1-1.2) 06/29/19 05:45 AST 10 units/L (5-40) 06/29/19 05:45 ALT 15 units/L (7-56) 06/29/19 05:45 Alkaline Phosphatase 69 units/L (35-129) 06/29/19 05:45 Total Creatine Kinase 25 units/L (30-135) L 06/28/19 23:01 Total Protein 8.4 g/dL (6.3-8.2) H 06/29/19 05:45 Albumin 3.5 g/dL (3.9-5) L 06/29/19 05:45 Albumin/Globulin Ratio 0.7 % 06/29/19 05:45 Lipase 17 units/L (13-60) 06/28/19 23:01 Urine Color Yellow (Yellow) 06/28/19 23:50 Urine Turbidity Clear (Clear) 06/28/19 23:50 Urine pH 5.0 (5.0-7.0) 06/28/19 23:50 Ur Specific [place] 1.016 (1.003-1.030) 06/28/19 23:50 Urine Protein >500 mg/dL (Negative) 06/28/19 23:50 Urine Glucose (UA) >=500 mg/dL (Negative) 06/28/19 23:50 Urine Ketones 80 mg/dL (Negative) 06/28/19 23:50 Urine Blood Lg (Negative) 06/28/19 23:50 Urine Nitrite Neg (Negative) 06/28/19 23:50 Urine Bilirubin Neg (Negative) 06/28/19 23:50 Urine Urobilinogen < 2.0 mg/dL (<2.0) 06/28/19 23:50 Ur Leukocyte Esterase Neg (Negative) 06/28/19 23:50 Urine WBC (Auto) 7.0 /HPF (0.0-6.0) H 06/28/19 23:50 Urine RBC (Auto) 173.0 /HPF (0.0-6.0) 06/28/19 23:50 U Epithel Cells (Auto) 1.0 /HPF (0-13.0) 06/28/19 23:50 Urine Bacteria (Auto) 2+ /HPF (Negative) 06/28/19 23:50 Urine Mucus Few /HPF 06/28/19 23:50 Urine Yeast (Budding) Few /HPF 06/28/19 23:50 Microbiology: Microbiology 06/28/19 23:50 Vaginal Wet Prep - Final [place]ons[place]/IV: IV Catheter Type [Left Hand] Peripheral IV Active Medications - Current Medications Current Medications: Generic Name Dose Route Start Last Admin Trade Name Freq PRN Reason Stop Dose Admin Acetaminophen 650 mg 06/29/19 01:57 Tylenol PO Q4H PRN Pain MILD(1-3)/Fever >100.5/OCAMPO Acetaminophen/Hydrocodone Bitart 1 each 06/29/19 01:57 [place] 5/325 PO Q6H PRN Pain , Severe (7-10) Heparin Sodium (Porcine) 5,000 unit 06/29/19 02:45 06/29/19 09:20 Heparin SUB-Q 5,000 unit Q12HR HEVER Administration Hydromorphone HCl 0.5 mg 06/29/19 01:57 06/29/19 09:20 Dilaudid IV 0.5 mg Q3H PRN Administration Pain , Severe (7-10) Sodium Chloride 1,000 mls @ 100 mls/hr 06/29/19 02:00 06/29/19 13:04 Nacl 0.9% 1000 Ml IV 100 mls/hr DIRECT HEVER Administration Ceftriaxone Sodium 1 gm in 50 mls @ 100 mls/hr 06/29/19 06:00 06/29/19 07:09 Rocephin/Ns 1 Gm/50 Ml IV Infused Q24H HEVER Infusion Protocol Insulin Human Isoph/Insulin Regular 20 unit 06/29/19 08:00 06/29/19 09:30 Humulin 70/30 SUB-Q 20 unit BIDDIAB HEVER Administration Insulin Human Lispro 0 unit 06/29/19 03:00 06/29/19 11:04 Humalog SUB-Q 4 unit Q4HR HEVER Administration Protocol Metoclopramide HCl 10 mg 06/29/19 01:57 06/29/19 02:56 Reglan IV 10 mg Q6H PRN Administration Nausea And Vomiting Ondansetron HCl 4 mg 06/29/19 01:57 06/29/19 09:21 Zofran IV 4 mg Q8H PRN Administration Nausea And Vomiting Oxycodone/Acetaminophen 1 tab 06/29/19 01:57 Percocet 5/325 PO Q6H PRN Pain, Moderate (4-6) Sodium Chloride 10 ml 06/29/19 02:00 06/29/19 02:56 Sodium Chloride Flush Syringe 10 Ml IV 10 ml BID HEVER Administration Sodium Chloride 10 ml 06/29/19 01:57 Sodium Chloride Flush Syringe 10 Ml IV PRN PRN LINE FLUSH
[2019-06-29] MEDS ORDERED: hydrALAZINE 20 MG/1 ML INJ IV PRN (17:37)
[2019-06-29] MEDS ORDERED: hydrALAZINE 20 MG/1 ML INJ IV ONE (17:37)
[2019-06-29] MEDS: INSULIN NPH/REGULAR 70/30 INJ SUB-Q SCH ×2 (19:09→22:38)
[2019-06-29] MEDS: hydrALAZINE 25 MG TAB PO SCH (22:39)
[2019-06-30] MEDS: ONDANSETRON 4 MG/2 ML INJ IV PRN ×2 (00:46→03:41)
[2019-06-30] MEDS: HYDROmorphone 1 MG/1 ML INJ IV PRN ×6 (00:47→22:25)
[2019-06-30] MEDS: INSULIN LISPRO 100 UNIT/ML SUB-Q SCH ×7 (01:07→22:22)
[2019-06-30 04:47] LABS: Hemolysis Index 335
[2019-06-30 05:07] LABS: BUN/Creatinine Ratio TNR; Blood Urea Nitrogen TNR mg/dL (7-17)
[2019-06-30 05:08] LABS: Calcium TNR mg/dL (8.4-10.2)
[2019-06-30] MEDS: hydrALAZINE 25 MG TAB PO SCH ×3 (07:01→21:37)
[2019-06-30] MEDS: cefTRIAXone/NS 1 GM/50 ML 1 GM/50 ML BAG IV SCH (07:53)
[2019-06-30 09:39] LABS: BUN/Creatinine Ratio 14; Blood Urea Nitrogen 11 mg/dL (7-17); Calcium 8.8 mg/dL (8.4-10.2); Hemolysis Index 1
[2019-06-30] MEDS: HEPARIN 5,000 UNIT/1 ML VIAL SUB-Q SCH ×2 (10:31→21:37)
[2019-06-30] MEDS: INSULIN NPH/REGULAR 70/30 INJ SUB-Q SCH ×2 (11:35→18:00)
--- NOTE | 2019-06-30 13:37 | Progress Note ---
Assessment and Plan - Patient Problems (1) Morbid obesity Current Visit: Yes Status: Acute Plan to address problem: Stress calorie reduction and increased exercise once discharge. (2) Gastroparesis Current Visit: Yes Status: Acute Plan to address problem: Patient with gastroparesis was not able to get Zofran filled. Patient has Zofran this time has improved will discharge home (3) Hyponatremia Current Visit: Yes Status: Acute (4) Metabolic acidosis Current Visit: Yes Status: Acute (5) Uncontrolled diabetes mellitus Current Visit: Yes Status: Acute Qualifiers: Diabetes mellitus type: type 1 Plan to address problem: Patient fair but suboptimal control on 25 units twice daily we will increase that to 28 units twice daily. (6) UTI (urinary tract infection) Current Visit: No Status: Acute Qualifiers: Urinary tract infection type: acute cystitis Plan to address problem: UTI patient on IV Rocephin. Blood cultures are negative so far. Fever curve is down. No leukocytosis. Patient definitely did have sepsis present on admission. History Interval history: Patient presented with chief complaint polyuria polydipsia generalized weakness. After evaluation patient was found to be in DKA and this was her cause for having nausea and vomiting for 5 days. Patient also states she was diagnosed with gastroparesis at this time. Patient was able to hold food down today. It was only clear liquids. And not very much at all. Today patient did not have any nausea vomiting. Was scheduled to go home however hospital course was complicated by acute tachycardia with heart rate warning 133. Consistently. PUI?: No Hospitalist Physical - Constitutional Vitals: Temp Pulse Resp BP Pulse Ox 98.3 F 121 H 18 127/72 94 06/30/19 09:24 06/30/19 12:51 06/30/19 12:51 06/30/19 12:51 06/30/19 12:51 General appearance: Present: mild distress, well-nourished, obese (Morbid obese) - EENT Eyes: Present: PERRL, EOM intact ENT: hearing intact, clear oral mucosa, dentition normal - Neck Neck: Present: normal ROM - Extremities Extremities: no ischemia, pulses intact, pulses symmetrical, No edema, normal temperature Peripheral Pulses: within normal limits - Abdominal General gastrointestinal: soft, non-tender, non-distended, normal bowel sounds - Integumentary Integumentary: Present: clear, warm, dry - Psychiatric Psychiatric: appropriate mood/affect, intact judgment & insight - Neurologic Neurologic: CNII-XII intact, moves all extremities Results - Labs CBC & Chem 7: 06/29/19 05:45 06/30/19 08:25 Labs: Laboratory Last Values WBC 12.8 K/mm3 (4.5-11.0) H 06/29/19 05:45 RBC 4.44 M/mm3 (3.65-5.03) 06/29/19 05:45 Hgb 11.8 gm/dl (10.1-14.3) 06/29/19 05:45 Hct 37.1 % (30.3-42.9) 06/29/19 05:45 MCV 84 fl (79-97) 06/29/19 05:45 MCH 27 pg (28-32) L 06/29/19 05:45 MCHC 32 % (30-34) 06/29/19 05:45 RDW 13.3 % (13.2-15.2) 06/29/19 05:45 Plt Count 262 K/mm3 (140-440) 06/29/19 05:45 Lymph % (Auto) 9.5 % (13.4-35.0) L 06/29/19 05:45 [place] % (Auto) 7.5 % (0.0-7.3) H 06/29/19 05:45 Eos % (Auto) 0.1 % (0.0-4.3) 06/29/19 05:45 Baso % (Auto) 0.2 % (0.0-1.8) 06/29/19 05:45 Lymph # 1.2 K/mm3 (1.2-5.4) 06/29/19 05:45 [place] # 1.0 K/mm3 (0.0-0.8) H 06/29/19 05:45 Eos # 0.0 K/mm3 (0.0-0.4) 06/29/19 05:45 Baso # 0.0 K/mm3 (0.0-0.1) 06/29/19 05:45 Seg Neutrophils % 82.7 % (40.0-70.0) H 06/29/19 05:45 Seg Neutrophils # 10.6 K/mm3 (1.8-7.7) H 06/29/19 05:45 Sodium 138 mmol/L (137-145) 06/30/19 08:25 Potassium 4.0 mmol/L (3.6-5.0) 06/30/19 08:25 Chloride 101.6 mmol/L (98-107) 06/30/19 08:25 Carbon Dioxide 17 mmol/L (22-30) L 06/30/19 08:25 Anion Gap 23 mmol/L 06/30/19 08:25 BUN 11 mg/dL (7-17) 06/30/19 08:25 Creatinine 0.8 mg/dL (0.7-1.2) 06/30/19 08:25 Estimated GFR > 60 ml/min 06/30/19 08:25 BUN/Creatinine Ratio 14 % 06/30/19 08:25 Glucose 211 mg/dL (65-100) H 06/30/19 08:25 POC Glucose 307 (70-105) H 06/30/19 12:28 Hemoglobin A1c 10.1 % (4-6) H 06/29/19 05:45 Calcium 8.8 mg/dL (8.4-10.2) 06/30/19 08:25 Magnesium 2.30 mg/dL (1.7-2.3) 06/28/19 23:01 Total Bilirubin 0.60 mg/dL (0.1-1.2) 06/29/19 05:45 AST 10 units/L (5-40) 06/29/19 05:45 ALT 15 units/L (7-56) 06/29/19 05:45 Alkaline Phosphatase 69 units/L (35-129) 06/29/19 05:45 Total Creatine Kinase 25 units/L (30-135) L 06/28/19 23:01 Total Protein 8.4 g/dL (6.3-8.2) H 06/29/19 05:45 Albumin 3.5 g/dL (3.9-5) L 06/29/19 05:45 Albumin/Globulin Ratio 0.7 % 06/29/19 05:45 Lipase 17 units/L (13-60) 06/28/19 23:01 Urine Color Yellow (Yellow) 06/28/19 23:50 Urine Turbidity Clear (Clear) 06/28/19 23:50 Urine pH 5.0 (5.0-7.0) 06/28/19 23:50 Ur Specific [place] 1.016 (1.003-1.030) 06/28/19 23:50 Urine Protein >500 mg/dL (Negative) 06/28/19 23:50 Urine Glucose (UA) >=500 mg/dL (Negative) 06/28/19 23:50 Urine Ketones 80 mg/dL (Negative) 06/28/19 23:50 Urine Blood Lg (Negative) 06/28/19 23:50 Urine Nitrite Neg (Negative) 06/28/19 23:50 Urine Bilirubin Neg (Negative) 06/28/19 23:50 Urine Urobilinogen < 2.0 mg/dL (<2.0) 06/28/19 23:50 Ur Leukocyte Esterase Neg (Negative) 06/28/19 23:50 Urine WBC (Auto) 7.0 /HPF (0.0-6.0) H 06/28/19 23:50 Urine RBC (Auto) 173.0 /HPF (0.0-6.0) 06/28/19 23:50 U Epithel Cells (Auto) 1.0 /HPF (0-13.0) 06/28/19 23:50 Urine Bacteria (Auto) 2+ /HPF (Negative) 06/28/19 23:50 Urine Mucus Few /HPF 06/28/19 23:50 Urine Yeast (Budding) Few /HPF 06/28/19 23:50 [place]/IV: Voiding Method Toilet IV Catheter Type [Left Hand] Peripheral IV Active Medications - Current Medications Current Medications: Generic Name Dose Route Start Last Admin Trade Name Juan Joseq PRN Reason Stop Dose Admin Acetaminophen 650 mg 06/29/19 01:57 Tylenol PO Q4H PRN Pain MILD(1-3)/Fever >100.5/OCAMPO Acetaminophen/Hydrocodone Bitart 1 each 06/29/19 01:57 [place] 5/325 PO Q6H PRN Pain , Severe (7-10) Heparin Sodium (Porcine) 5,000 unit 06/29/19 02:45 06/30/19 10:31 Heparin SUB-Q 5,000 unit Q12HR HEVER Administration Hydralazine HCl 10 mg 06/29/19 17:37 06/30/19 00:46 Apresoline IV 10 mg Q4HR PRN Administration Hypertension Hydralazine HCl 25 mg 06/29/19 22:00 06/30/19 07:01 Apresoline PO 25 mg Q8HR HEVER Administration Hydromorphone HCl 0.5 mg 06/29/19 01:57 06/30/19 11:34 Dilaudid IV 0.5 mg Q3H PRN Administration Pain , Severe (7-10) Ceftriaxone Sodium 1 gm in 50 mls @ 100 mls/hr 06/29/19 06:00 06/30/19 07:53 Rocephin/Ns 1 Gm/50 Ml IV 100 mls/hr Q24H HEVER Administration Protocol Insulin Human Isoph/Insulin Regular 25 unit 06/29/19 17:00 06/30/19 11:35 Humulin 70/30 SUB-Q 25 unit BIDDIAB HEVER Administration Insulin Human Lispro 0 unit 06/29/19 03:00 06/30/19 10:31 Humalog SUB-Q 4 unit Q4HR HEVER Administration Protocol Metoclopramide HCl 10 mg 06/29/19 01:57 06/29/19 02:56 Reglan IV 10 mg Q6H PRN Administration Nausea And Vomiting Ondansetron HCl 4 mg 06/30/19 00:40 06/30/19 03:41 Zofran IV 4 mg Q3H PRN Administration Nausea And Vomiting Oxycodone/Acetaminophen 1 tab 06/29/19 01:57 Percocet 5/325 PO Q6H PRN Pain, Moderate (4-6) Sodium Chloride 10 ml 06/29/19 02:00 06/30/19 11:36 Sodium Chloride Flush Syringe 10 Ml IV 10 ml BID HEVER Administration Sodium Chloride 10 ml 06/29/19 01:57 Sodium Chloride Flush Syringe 10 Ml IV PRN PRN LINE FLUSH
[2019-06-30] MEDS: ACETAMINOPHEN 325 MG TAB PO PRN (21:41)
[2019-07-01] MEDS: cefTRIAXone/NS 1 GM/50 ML 1 GM/50 ML BAG IV SCH (05:00)
[2019-07-01] MEDS: hydrALAZINE 25 MG TAB PO SCH ×2 (05:00→13:02)
[2019-07-01] MEDS: INSULIN LISPRO 100 UNIT/ML SUB-Q SCH ×2 (05:00→10:26)
[2019-07-01] MEDS ORDERED: LOSARTAN 25 MG TAB PO SCH (10:00)
--- NOTE | 2019-07-01 10:23 | Discharge Summary ---
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 Patient did not have any diabetic medications which appears to be the etiology for decompensation. Patient hospital course was complicated by tachycardia. This was secondary to volume disturbances and corrected with intravascular volume replacement. Patient blood pressure was also found to be high and was given losartan. Patient also be changed to Levaquin for continued treatment of UTI. Disposition: DC-30 STILL A PATIENT - Discharge Diagnoses (1) Morbid obesity Status: Acute Comment: Patient educated about low calorie intake low-carb intake and its ability to help with diabetes and its diagnosis. (2) Gastroparesis Status: Acute Comment: Well-known history of gastroparesis. Continue present medications Reglan. Patient tolerating p.o. able to keep foods down no problem. (3) Hyponatremia Status: Resolved (4) Metabolic acidosis Status: Acute Comment: Secondary to ketoacidosis resolved. (5) Uncontrolled diabetes mellitus Status: Acute Qualifiers: Diabetes mellitus type: type 1 Comment: Patient diabetes much better controlled on 70/30 insulin that is affordable for patient Humalog 70/30. (6) UTI (urinary tract infection) Status: Acute Qualifiers: Urinary tract infection type: acute cystitis Comment: Levaquin for an additional 5 days. Core Measure Documentation - Palliative Care Palliative Care/ Comfort Measures: Not Applicable - Core Measures Any of the following diagnoses?: none Exam - Constitutional Vitals: Temp Pulse Resp BP Pulse Ox 99.3 F 117 H 18 156/84 95 07/01/19 07:28 07/01/19 07:28 07/01/19 07:28 07/01/19 07:28 07/01/19 07:28 General appearance: Present: no acute distress, well-nourished - EENT Eyes: Present: PERRL ENT: hearing intact, clear oral mucosa - Neck Neck: Present: supple, normal ROM - Respiratory Respiratory effort: normal Respiratory: bilateral: CTA - Cardiovascular Heart Sounds: Present: S1 & S2. Absent: rub, click - Extremities Extremities: pulses symmetrical, No edema Peripheral Pulses: within normal limits - Abdominal General gastrointestinal: Present: soft, non-tender, non-distended, normal bowel sounds Female genitourinary: Present: normal - Integumentary Integumentary: Present: clear, warm, dry - Musculoskeletal Musculoskeletal: gait normal, strength equal bilaterally - Psychiatric Psychiatric: appropriate mood/affect, intact judgment & insight - Neurologic Neurologic: CNII-XII intact, moves all extremities Plan Activity: no restrictions Diet: diabetic Follow up with: PRIMARY CARE, [Primary Care Provider] - 3-5 Days Prescriptions: Ciprofloxacin HCl [Ciprofloxacin TAB] 500 mg PO Q12HR 7 Days #14 tab Insulin NPH/Regular [NovoLIN 70/30] 25 unit SUB-Q BIDDIAB #1 units Ondansetron [Zofran ODT TAB] 4 mg PO Q8HR PRN #14 tab.rapdis PRN Reason: Nausea And Vomiting
[2019-07-01] MEDS: HEPARIN 5,000 UNIT/1 ML VIAL SUB-Q SCH (10:26)
[2019-07-01] MEDS: INSULIN NPH/REGULAR 70/30 INJ SUB-Q SCH (10:27)
[2019-07-01] MEDS: HYDROmorphone 1 MG/1 ML INJ IV PRN (10:34)
[2019-07-01] MEDS: ONDANSETRON 4 MG/2 ML INJ IV PRN (10:34)
[2019-07-01] MEDS ORDERED: levoFLOXacin 500 MG TAB PO SCH (11:00)
[2019-07-01 11:47] VITALS: BP 141/84
[2019-07-01] MEDS: ACETAMINOPHEN 325 MG TAB PO PRN (11:54)
== END 2019-07-01 14:10 | disposition home or self-care (01) | DRG 638 ==
LOC: ED 22:02 → 4A 06-29
PROVIDERS: ADMIT Internal Medicine; ATTEND Internal Medicine
DX: E10.10 Type 1 diabetes mellitus with ketoacidosis without coma (principal); E87.1 Hypo-osmolality and hyponatremia; N30.00 Acute cystitis without hematuria; Z68.41 Body mass index [BMI] 40.0-44.9, adult; E10.43 Type 1 diabetes mellitus with diabetic autonomic (poly)neuropathy; E10.65 Type 1 diabetes mellitus with hyperglycemia; K31.84 Gastroparesis; E86.0 Dehydration; E66.01 Morbid (severe) obesity due to excess calories; Z88.6 Allergy status to analgesic agent; Z82.49 Family history of ischemic heart disease and other diseases of the circulatory system; Z71.3 Dietary counseling and surveillance
CPT/HCPCS: 36415; 80048; 80053; 81001; 82550; 82962; 83036; 83690; 83735; 85014; 85018; 85025; 85049; 87086; 87210; 87591; 93005; 93010; G0378; J0360; J0696; J1170; J1630; J1644; J1815; J2405; J2765; J7030

== ENCOUNTER 2019-07-06 18:06 | Inpatient (IN) | payer OTHER ==
[2019-07-06] MEDS ORDERED: SODIUM CHLORIDE 0.9% 1000 ML 1,000 ML IV ONE ×2 (18:34→19:32)
[2019-07-06] MEDS ORDERED: FAMOTIDINE 20 MG/2 ML INJ IV ONE (18:39)
[2019-07-06] MEDS ORDERED: ONDANSETRON 4 MG/2 ML INJ IV ONE (18:39)
[2019-07-06] MEDS ORDERED: METOCLOPRAMIDE 10 MG/2 ML INJ IV ONE (18:39)
[2019-07-06] MEDS ORDERED: HYDROmorphone 1 MG/1 ML INJ IV ONE ×2 (18:40→22:01)
--- NOTE | 2019-07-06 18:45 | Emergency Department Report ---
ED Abdominal Pain HPI - General Chief Complaint: Abdominal Pain Stated Complaint: CHEST PAIN/HIGH SUGAR/ABD PAIN Time Seen by Provider: 07/06/19 18:30 Source: patient Mode of arrival: Ambulatory Limitations: No Limitations - History of Present Illness Initial Comments: 23-year-old female the past medical history of insulin-dependent diabetes with previous DKA, gastroparesis, obesity, and hypertension presents to the hospital complains of abdominal pain nausea, and vomiting since discharge to the hospital on the . Patient was recently admitted here June 25 until the for DKA and UTI as well as gastroparesis. She had an unremarkable CT abdomen pelvis on 06/25 + for small intrarenal stones only. Patient represented to the hospital 2 days later on the and once again was treated for gastroparesis on the ED and was discharged on Reglan and [place]. Patient states she is still unable to tolerate p.o. intake and continues to has nausea and vomiting. She is compliant with her insulin but able to keep down any of her oral medication despite taking the zofran and reglan as prescribed. She complains of generalized abdominal pain that is constant worse with palpation. Abd pain is greatest in upper abd and typical of gastroparesis. She denies fever, melena, hematochezia, hematemesis, or previous abdominal surgeries. - Related Data Previous Rx's Medication Instructions Recorded Last Taken Type Acetaminophen [Acetaminophen TAB] 650 mg PO Q4H PRN tablet 07/01/19 Unknown Rx Ciprofloxacin HCl [Ciprofloxacin 500 mg PO Q12HR 7 Days #14 tab 07/01/19 Unknown Rx TAB] Insulin NPH/Regular [NovoLIN 70/30] 25 unit SUB-Q BIDDIAB #1 units 07/01/19 Unknown Rx Losartan [Cozaar] 25 mg PO QDAY #30 tablet 07/01/19 Unknown Rx Losartan [Cozaar] 25 mg PO QDAY #30 tablet 07/01/19 Unknown Rx Ondansetron [Zofran ODT TAB] 4 mg PO Q8HR PRN #14 tab.rapdis 07/01/19 Unknown Rx HYDROcodone/APAP 5-325 [[place] 1 each PO Q6HR PRN #14 tablet 07/04/19 Unknown Rx 5/325] Metoclopramide [Reglan] 10 mg PO TID #30 tab 07/04/19 Unknown Rx Allergies Allergy/AdvReac Type Severity Reaction Status Date / Time tramadol AdvReac Vomiting Verified 07/06/19 22:19 ED Review of Systems ROS: Stated complaint: CHEST PAIN/HIGH SUGAR/ABD PAIN Other details as noted in HPI Comment: All other systems reviewed and negative ED Past Medical Hx - Past Medical History Hx Hypertension: No Hx CVA: No Hx Heart Attack/AMI: No Hx Congestive Heart Failure: No Hx Diabetes: Yes Hx Deep Vein Thrombosis: No Hx Pulmonary Embolism: No Hx GERD: No Hx Liver Disease: No Hx Renal Disease: No Hx Sickle Cell Disease: No Hx Arthritis: No Hx Headaches / Migraines: No Hx Seizures: No Hx Kidney Stones: No Hx Psychiatric Treatment: No Hx Asthma: No Hx COPD: No Hx Tuberculosis: No Hx Dementia: No Hx HIV: No Additional medical history: Gastroparesis - Surgical History Hx Coronary Stent: No Hx Open Heart Surgery: No Hx Pacemaker: No Hx Internal Defibrillator: No Hx Cholecystectomy: No Hx Appendectomy: No Hx Breast Surgery: No - Social History Smoking Status: Never Smoker Substance Use Type: None - Medications Home Medications: Home Medications Medication Instructions Recorded Confirmed Last Taken Type Acetaminophen [Acetaminophen TAB] 650 mg PO Q4H PRN tablet 07/01/19 Unknown Rx Ciprofloxacin HCl [Ciprofloxacin 500 mg PO Q12HR 7 Days #14 tab 07/01/19 Unknown Rx TAB] Insulin NPH/Regular [NovoLIN 70/30] 25 unit SUB-Q BIDDIAB #1 units 07/01/19 Unknown Rx Losartan [Cozaar] 25 mg PO QDAY #30 tablet 07/01/19 Unknown Rx Losartan [Cozaar] 25 mg PO QDAY #30 tablet 07/01/19 Unknown Rx Ondansetron [Zofran ODT TAB] 4 mg PO Q8HR PRN #14 tab.rapdis 07/01/19 Unknown Rx HYDROcodone/APAP 5-325 [[place] 1 each PO Q6HR PRN #14 tablet 07/04/19 Unknown Rx 5/325] Metoclopramide [Reglan] 10 mg PO TID #30 tab 07/04/19 Unknown Rx ED Physical Exam - General Limitations: No Limitations - Other Other exam information: General: Ill-appearing Head: Atraumatic Eyes: normal appearance ENT: Moist mucous membranes Neck: Normal appearance, no midline tenderness Chest: Clear to auscultation bilaterally CV: Tachycardic regular Abdomen: Soft, normal bowel sounds, generalized on the tenderness greatest in the upper abdome. nondistended, no rebound or guarding Back: Normal inspection Extremity: Normal inspection, full range of motion Neuro: Alert O x 3, no facial asymmetry, speech clear, no gross motor sensory deficit Psych: Appropriate behavior Skin: No rash ED Course Vital Signs 07/06/19 07/06/19 07/06/19 18:07 18:21 18:50 Temperature 98 F Pulse Rate 147 H 141 H Respiratory 22 20 Rate Blood Pressure 152/107 O2 Sat by Pulse 97 99 Oximetry 07/06/19 07/06/19 07/06/19 19:00 20:00 21:00 Temperature Pulse Rate 127 H 102 H 100 H Respiratory 16 15 12 Rate Blood Pressure 185/129 167/120 174/127 O2 Sat by Pulse 99 98 99 Oximetry 07/06/19 21:53 Temperature Pulse Rate 100 H Respiratory Rate Blood Pressure 174/127 O2 Sat by Pulse Oximetry ED Medical Decision Making - Lab Data Result diagrams: 07/06/19 18:47 07/06/19 18:47 Lab Results 07/06/19 07/06/19 07/06/19 Range/Units 18:24 18:47 18:47 WBC 14.1 H (4.5-11.0) K/mm3 RBC 4.67 (3.65-5.03) M/mm3 Hgb 12.7 (10.1-14.3) gm/dl Hct 39.8 D (30.3-42.9) % MCV 85 (79-97) fl MCH 27 L (28-32) pg MCHC 32 (30-34) % RDW 13.7 (13.2-15.2) % Plt Count 497 H (140-440) K/mm3 Lymph % (Auto) 13.5 (13.4-35.0) % [place] % (Auto) 6.4 (0.0-7.3) % Eos % (Auto) 0.3 (0.0-4.3) % Baso % (Auto) 0.6 (0.0-1.8) % Lymph # 1.9 (1.2-5.4) K/mm3 [place] # 0.9 H (0.0-0.8) K/mm3 Eos # 0.0 (0.0-0.4) K/mm3 Baso # 0.1 (0.0-0.1) K/mm3 Seg Neutrophils % 79.2 H (40.0-70.0) % Seg Neutrophils # 11.2 H (1.8-7.7) K/mm3 VBG pH (7.320-7.420) Sodium 128 L (137-145) mmol/L Potassium 3.4 L (3.6-5.0) mmol/L Chloride 85.8 L (98-107) mmol/L Carbon Dioxide 18 L (22-30) mmol/L Anion Gap 28 mmol/L BUN 9 (7-17) mg/dL Creatinine 0.8 (0.7-1.2) mg/dL Estimated GFR > 60 ml/min BUN/Creatinine Ratio 11 % Glucose 345 H (65-100) mg/dL POC Glucose 284 H (70-105) Calcium 9.7 (8.4-10.2) mg/dL Magnesium (1.7-2.3) mg/dL Total Bilirubin 0.60 (0.1-1.2) mg/dL AST 11 (5-40) units/L ALT 22 (7-56) units/L Alkaline Phosphatase 79 (35-129) units/L Total Protein 9.1 H (6.3-8.2) g/dL Albumin 3.8 L (3.9-5) g/dL Albumin/Globulin Ratio 0.7 % Lipase 29 (13-60) units/L TSH (0.270-4.200) mlU/mL Free T4 (0.76-1.46) ng/dL HCG, Quant (0-4) mIU/mL 07/06/19 07/06/19 07/06/19 Range/Units 18:47 18:47 18:47 WBC (4.5-11.0) K/mm3 RBC (3.65-5.03) M/mm3 Hgb (10.1-14.3) gm/dl Hct (30.3-42.9) % MCV (79-97) fl MCH (28-32) pg MCHC (30-34) % RDW (13.2-15.2) % Plt Count (140-440) K/mm3 Lymph % (Auto) (13.4-35.0) % [place] % (Auto) (0.0-7.3) % Eos % (Auto) (0.0-4.3) % Baso % (Auto) (0.0-1.8) % Lymph # (1.2-5.4) K/mm3 [place] # (0.0-0.8) K/mm3 Eos # (0.0-0.4) K/mm3 Baso # (0.0-0.1) K/mm3 Seg Neutrophils % (40.0-70.0) % Seg Neutrophils # (1.8-7.7) K/mm3 VBG pH 7.530 H (7.320-7.420) Sodium (137-145) mmol/L Potassium (3.6-5.0) mmol/L Chloride (98-107) mmol/L Carbon Dioxide (22-30) mmol/L Anion Gap mmol/L BUN (7-17) mg/dL Creatinine (0.7-1.2) mg/dL Estimated GFR ml/min BUN/Creatinine Ratio % Glucose (65-100) mg/dL POC Glucose (70-105) Calcium (8.4-10.2) mg/dL Magnesium 1.80 (1.7-2.3) mg/dL Total Bilirubin (0.1-1.2) mg/dL AST (5-40) units/L ALT (7-56) units/L Alkaline Phosphatase (35-129) units/L Total Protein (6.3-8.2) g/dL Albumin (3.9-5) g/dL Albumin/Globulin Ratio % Lipase (13-60) units/L TSH 1.590 (0.270-4.200) mlU/mL Free T4 2.05 H (0.76-1.46) ng/dL HCG, Quant < 2 (0-4) mIU/mL - EKG Data -: EKG Interpreted by Me EKG shows normal: sinus rhythm, ST-T waves (no stemi) Rate: tachycardia (133) - Medical Decision Making Tachycardia improving with IV fluids. Patient tolerating some of her oral pills but persistent nausea and pain depsite zofran, reglan, dilaudid, pepcid. Patient is hypertensive and provided clonidine, potassium 20 mEq (patient could not tolerate the other 20 mEq p.o. therefore IV ordered). Awaiting urine collection at time of patient dispo - Differential Diagnosis Gastroparesis, gastritis, biliary colic, pancreatitis, DKA Critical Care Time: No Critical care attestation.: If time is entered above; I have spent that time in minutes in the direct care of this critically ill patient, excluding procedure time. ED Disposition Clinical Impression: Gastroparesis, Hyperglycemia, Dehydration, Metabolic acidosis, Hypokalemia, Intractable nausea and vomiting, Uncontrolled hypertension, Abdominal pain Disposition: OP ADMIT IP TO THIS HOSP Is pt being admited?: Yes Condition: Stable Referrals: PRIMARY CARE, [Primary Care Provider] - 3-5 Days Time of Disposition: 22:07 (Dr Monae/hosp)
[2019-07-06 19:08] LABS: Basophils # (Auto) 0.1 K/mm3 (0.0-0.1); Basophils % (Auto) 0.6 % (0.0-1.8); Eosinophils % (Auto) 0.3 % (0.0-4.3); Hematocrit 39.8 % (30.3-42.9); Hemoglobin 12.7 gm/dl (10.1-14.3); Lymphocytes # (Auto) 1.9 K/mm3 (1.2-5.4); Lymphocytes % (Auto) 13.5 % (13.4-35.0); Mean Corpuscular HGB Conc 32 % (30-34); Mean Corpuscular Volume 85 fl (79-97); Monocytes # (Auto) 0.9 K/mm3 (0.0-0.8); Monocytes % (Auto) 6.4 % (0.0-7.3); Platelet Count 497 K/mm3 (140-440); Red Blood Count 4.67 M/mm3 (3.65-5.03); Red Cell Distribution Width 13.7 % (13.2-15.2)
[2019-07-06 19:25] LABS: Alanine Aminotransferase 22 units/L (7-56); Albumin 3.8 g/dL (3.9-5); BUN/Creatinine Ratio 11; Blood Urea Nitrogen 9 mg/dL (7-17); Calcium 9.7 mg/dL (8.4-10.2); Hemolysis Index 7
[2019-07-06 19:37] LABS: Free T4 (Free Thyroxine) 2.05 ng/dL (0.76-1.46); HCG,Quantitative < 2 mIU/mL (0-4)
--- NOTE | 2019-07-06 20:15 | XRay Report ---
CHEST 1 VIEW INDICATION / CLINICAL INFORMATION: Shortness of breath. COMPARISON: Chest radiograph 07/04/2019 FINDINGS: SUPPORT DEVICES: None. HEART / MEDIASTINUM: No significant abnormality. LUNGS / PLEURA: No significant pulmonary or pleural abnormality. No pneumothorax. IMPRESSION: No acute finding. Signer Name: Sonido Campuzano MD Signed: 07/06/2019 8:10 PM Workstation Name: [id number]
[2019-07-06] MEDS ORDERED: POTASSIUM CHLORIDE ER 20 MEQ TAB PO ONE (20:44)
[2019-07-06] MEDS ORDERED: cloNIDine 0.1 MG TAB PO ONE (21:46)
[2019-07-06] MEDS ORDERED: INSULIN REGULAR, HUMAN 100 UNITS/1 ML IV ONE (21:47)
[2019-07-06] MEDS ORDERED: POTASSIUM CHLORIDE 20 MEQ 20 MEQ/100 ML BAG IV ONE (22:00)
[2019-07-06] MEDS ORDERED: ONDANSETRON 4 MG/2 ML INJ ONE (22:28)
[2019-07-06] MEDS ORDERED: POTASSIUM CHLORIDE 10 MEQ 10 MEQ/100 ML BAG IV ONE (23:12)
[2019-07-06] MEDS ORDERED: SODIUM CHLORIDE 0.9% 1000 ML 1,000 ML ONE (23:14)
[2019-07-06] MEDS ORDERED: hydrALAZINE 20 MG/1 ML INJ IV PRN (23:15)
--- NOTE | 2019-07-06 23:15 | History and Physical Report ---
History of Present Illness History of present illness: 23-year-old woman with a history of hypertension, diabetes comes emergency room with complaints of nausea vomiting, decreased oral intake over the last 1-1/2 weeks. The patient was admitted then discharge on 06/30, her symptoms started 2 days later. She returned to the emergency room on the and was discharged from the emergency room. She states her symptoms did not improve at all, patient will be admitted for intractable nausea vomiting secondary to gastroparesis Review Of Systems: Constitutional: no weight loss, fever, chills Ears, eyes, nose, mouth and throat: no nasal congestion, no nasal discharge, no sinus pressure, blurry vision, diplopia Neck: No neck pain or rigidity. Cardiovascular: No palpitations, chest pain Respiratory: No shortness of breath, cough Gastrointestinal: No hematochezia Genitourinary : no dysuria, frequency Musculoskeletal: no muscle ache , joint pain Integumentary: no rash, no pruritis Neurological: no parathesias, focal weakness Endocrine: no cold or heat intolerance, no polyuria or polydipsia Hematologic/Lymphatic: no easy bruising, no easy bleeding, no gland swelling Allergic/Immunologic: no urticaria, no angioedema. PAST MEDICAL HISTORY: hypertension, diabetes PAST SURGICAL HISTORY: None SOCIAL HISTORY: Denies alcohol, tobacco, drugs FAMILY HISTORY: Hypertension Medications and Allergies Allergies Allergy/AdvReac Type Severity Reaction Status Date / Time tramadol AdvReac Vomiting Verified 07/07/19 01:55 Home Medications Medication Instructions Recorded Confirmed Last Taken Type Acetaminophen [Acetaminophen TAB] 650 mg PO Q4H PRN tablet 07/01/19 Unknown Rx Ciprofloxacin HCl [Ciprofloxacin 500 mg PO Q12HR 7 Days #14 tab 07/01/19 Unknown Rx TAB] Insulin NPH/Regular [NovoLIN 70/30] 25 unit SUB-Q BIDDIAB #1 units 07/01/19 Unknown Rx Losartan [Cozaar] 25 mg PO QDAY #30 tablet 07/01/19 Unknown Rx Losartan [Cozaar] 25 mg PO QDAY #30 tablet 07/01/19 Unknown Rx Ondansetron [Zofran ODT TAB] 4 mg PO Q8HR PRN #14 tab.rapdis 07/01/19 Unknown Rx HYDROcodone/APAP 5-325 [[place] 1 each PO Q6HR PRN #14 tablet 07/04/19 Unknown Rx 5/325] Metoclopramide [Reglan] 10 mg PO TID #30 tab 07/04/19 Unknown Rx Exam - Physical Exam Narrative exam: Gen. appearance: Patient lying in bed, no apparent distress HEENT: Normocephalic, atraumatic, pupils equally round and reactive to light, extraocular movement intact, and no sclericterus,. No JVD or thyromegaly or nodule,neck supple, no carotid bruit ,mucous membranes moist, no exudate or erythema Heart: S1, S2, regular rate and rhythm Lungs: Clear bilaterally, breathing comfortable Abdomen: Positive bowel sounds, nontender, nondistended, no organomegaly Extremity: no edema, cyanosis, clubbing Skin: No rash, nodules, warm, dry Neuro: Cranial nerves II to XII intact, speech is fluent, moves extremities, sensory intact - Constitutional Vitals: Temp Pulse Resp BP Pulse Ox 98 F 100 H 12 174/127 99 07/06/19 18:07 07/06/19 21:53 07/06/19 21:00 07/06/19 21:53 07/06/19 21:00 Results - Labs CBC & Chem 7: 07/06/19 18:47 07/06/19 18:47 Labs: Abnormal lab results 07/06/19 07/06/19 07/06/19 Range/Units 18:24 18:47 18:47 WBC 14.1 H (4.5-11.0) K/mm3 MCH 27 L (28-32) pg Plt Count 497 H (140-440) K/mm3 [place] # 0.9 H (0.0-0.8) K/mm3 Seg Neutrophils % 79.2 H (40.0-70.0) % Seg Neutrophils # 11.2 H (1.8-7.7) K/mm3 VBG pH (7.320-7.420) Sodium 128 L (137-145) mmol/L Potassium 3.4 L (3.6-5.0) mmol/L Chloride 85.8 L (98-107) mmol/L Carbon Dioxide 18 L (22-30) mmol/L Glucose 345 H (65-100) mg/dL POC Glucose 284 H (70-105) Total Protein 9.1 H (6.3-8.2) g/dL Albumin 3.8 L (3.9-5) g/dL Free T4 (0.76-1.46) ng/dL 07/06/19 07/06/19 Range/Units 18:47 18:47 WBC (4.5-11.0) K/mm3 MCH (28-32) pg Plt Count (140-440) K/mm3 [place] # (0.0-0.8) K/mm3 Seg Neutrophils % (40.0-70.0) % Seg Neutrophils # (1.8-7.7) K/mm3 VBG pH 7.530 H (7.320-7.420) Sodium (137-145) mmol/L Potassium (3.6-5.0) mmol/L Chloride (98-107) mmol/L Carbon Dioxide (22-30) mmol/L Glucose (65-100) mg/dL POC Glucose (70-105) Total Protein (6.3-8.2) g/dL Albumin (3.9-5) g/dL Free T4 2.05 H (0.76-1.46) ng/dL - Imaging and Cardiology Chest x-ray: report reviewed Assessment and Plan Assessment Intractable nausea vomiting secondary to gastroparesis, acute on chronic Start IV fluids, antiemetics, diet as tolerated Hypertension Start IV hydralazine for blood pressure control Diabetes Check fingersticks, start insulin sliding scale DVT prophylaxis
[2019-07-07 04:03] LABS: Bacteria,Urine 1+ /HPF (Negative); Bilirubin,Urine NEG (Negative); Blood,Urine NEG (Negative); Color,Urine Yellow (Yellow); Mucus,Urine FEW /HPF; Urobilinogen,Urine < 2.0 mg/dL (<2.0)
[2019-07-07 04:07] LABS: Amphetamine Screen,Urine PRESUMPTIVE NEGATIVE; Benzodiazepines Screen,Urine PRESUMPTIVE NEGATIVE; Cannabinoid Screen,Urine PRESUMPTIVE NEGATIVE; Cocaine Screen,Urine PRESUMPTIVE NEGATIVE; Methadone Screen,Urine PRESUMPTIVE NEGATIVE; Opiate Screen,Urine PRESUMPTIVE NEGATIVE
[2019-07-07] MEDS ORDERED: ONDANSETRON 4 MG/2 ML INJ IV PRN (08:10)
[2019-07-07] MEDS ORDERED: HYDROcodone/ACETAMINOPHEN 5-325 MG TAB PO PRN ×2 (08:12→08:27)
--- NOTE | 2019-07-07 08:17 | Progress Note ---
Assessment and Plan Assessment and plan: --Hyponatremia; probably pseudohyponatremia Secondary to hyperglycemia, treat the underlying cause IV normal saline --Hypokalemia; replenish per protocol and monitor levels --Uncontrolled diabetes mellitus;A1c 10.1 Accu-Chek sliding scale coverage ADA diet long-acting insulin Diabetic education, nutrition education --Gastroparesis; secondary to hyperglycemia Supportive care, antiemetics, Reglan IV fluids, diet as tolerated --Hypertension; moderate control Resume home antihypertensives, PRN hydralazine --Abnormal T4/normal TSH; Repeat thyroid function tests after 1 week at Ds office --Medical noncompliance; counseling The last 12 days patient had 5 ER visits Strongly advised to comply with medications and diet --DVT prophylaxis; Lovenox Monitor closely and adjust management as needed History Interval history: Patient was admitted with uncontrolled diabetes mellitus and severe gastroparesis Repeated visits to ER, noncompliant with medication Patient complains of nausea vomiting Vital signs reviewed Hospitalist Physical - Constitutional Vitals: Temp Pulse Resp BP Pulse Ox 98.1 F 88 20 145/90 45 L 07/07/19 07:08 07/07/19 07:08 07/07/19 07:08 07/07/19 07:08 07/07/19 07:08 General appearance: Present: no acute distress, well-nourished, obese (Morbidly obese) - EENT Eyes: Present: PERRL, EOM intact - Neck Neck: Present: supple, normal ROM - Respiratory Respiratory effort: normal Respiratory: bilateral: diminished, rhonchi, negative: rales, wheezing - Cardiovascular Rhythm: regular Heart Sounds: Present: S1 & S2 - Extremities Extremities: no ischemia, No edema - Abdominal General gastrointestinal: soft, non-tender, non-distended, normal bowel sounds - Integumentary Integumentary: Present: clear, warm - Psychiatric Psychiatric: appropriate mood/affect, cooperative - Neurologic Neurologic: CNII-XII intact, moves all extremities Results - Labs CBC & Chem 7: 07/06/19 18:47 07/07/19 08:41 Labs: Laboratory Last Values WBC 14.1 K/mm3 (4.5-11.0) H 07/06/19 18:47 RBC 4.67 M/mm3 (3.65-5.03) 07/06/19 18:47 Hgb 12.7 gm/dl (10.1-14.3) 07/06/19 18:47 Hct 39.8 % (30.3-42.9) D 07/06/19 18:47 MCV 85 fl (79-97) 07/06/19 18:47 MCH 27 pg (28-32) L 07/06/19 18:47 MCHC 32 % (30-34) 07/06/19 18:47 RDW 13.7 % (13.2-15.2) 07/06/19 18:47 Plt Count 497 K/mm3 (140-440) H 07/06/19 18:47 Lymph % (Auto) 13.5 % (13.4-35.0) 07/06/19 18:47 [place] % (Auto) 6.4 % (0.0-7.3) 07/06/19 18:47 Eos % (Auto) 0.3 % (0.0-4.3) 07/06/19 18:47 Baso % (Auto) 0.6 % (0.0-1.8) 07/06/19 18:47 Lymph # 1.9 K/mm3 (1.2-5.4) 07/06/19 18:47 [place] # 0.9 K/mm3 (0.0-0.8) H 07/06/19 18:47 Eos # 0.0 K/mm3 (0.0-0.4) 07/06/19 18:47 Baso # 0.1 K/mm3 (0.0-0.1) 07/06/19 18:47 Seg Neutrophils % 79.2 % (40.0-70.0) H 07/06/19 18:47 Seg Neutrophils # 11.2 K/mm3 (1.8-7.7) H 07/06/19 18:47 VBG pH 7.530 (7.320-7.420) H 07/06/19 18:47 Sodium 128 mmol/L (137-145) L 07/06/19 18:47 Potassium 3.4 mmol/L (3.6-5.0) L 07/06/19 18:47 Chloride 85.8 mmol/L (98-107) L 07/06/19 18:47 Carbon Dioxide 18 mmol/L (22-30) L 07/06/19 18:47 Anion Gap 28 mmol/L 07/06/19 18:47 BUN 9 mg/dL (7-17) 07/06/19 18:47 Creatinine 0.8 mg/dL (0.7-1.2) 07/06/19 18:47 Estimated GFR > 60 ml/min 07/06/19 18:47 BUN/Creatinine Ratio 11 % 07/06/19 18:47 Glucose 345 mg/dL (65-100) H 07/06/19 18:47 POC Glucose 223 (70-105) H 07/07/19 07:22 Calcium 9.7 mg/dL (8.4-10.2) 07/06/19 18:47 Magnesium 1.80 mg/dL (1.7-2.3) 07/06/19 18:47 Total Bilirubin 0.60 mg/dL (0.1-1.2) 07/06/19 18:47 AST 11 units/L (5-40) 07/06/19 18:47 ALT 22 units/L (7-56) 07/06/19 18:47 Alkaline Phosphatase 79 units/L (35-129) 07/06/19 18:47 Total Protein 9.1 g/dL (6.3-8.2) H 07/06/19 18:47 Albumin 3.8 g/dL (3.9-5) L 07/06/19 18:47 Albumin/Globulin Ratio 0.7 % 07/06/19 18:47 Lipase 29 units/L (13-60) 07/06/19 18:47 TSH 1.590 mlU/mL (0.270-4.200) 07/06/19 18:47 Free T4 2.05 ng/dL (0.76-1.46) H 07/06/19 18:47 HCG, Quant < 2 mIU/mL (0-4) 07/06/19 18:47 Urine Color Yellow (Yellow) 07/07/19 03:36 Urine Turbidity Clear (Clear) 07/07/19 03:36 Urine pH 6.0 (5.0-7.0) 07/07/19 03:36 Ur Specific [place] 1.017 (1.003-1.030) 07/07/19 03:36 Urine Protein 100 mg/dl mg/dL (Negative) 07/07/19 03:36 Urine Glucose (UA) >=500 mg/dL (Negative) 07/07/19 03:36 Urine Ketones 20 mg/dL (Negative) 07/07/19 03:36 Urine Blood Neg (Negative) 07/07/19 03:36 Urine Nitrite Neg (Negative) 07/07/19 03:36 Urine Bilirubin Neg (Negative) 07/07/19 03:36 Urine Urobilinogen < 2.0 mg/dL (<2.0) 07/07/19 03:36 Ur Leukocyte Esterase Tr (Negative) 07/07/19 03:36 Urine WBC (Auto) 25.0 /HPF (0.0-6.0) H 07/07/19 03:36 Urine RBC (Auto) 4.0 /HPF (0.0-6.0) 07/07/19 03:36 U Epithel Cells (Auto) 2.0 /HPF (0-13.0) 07/07/19 03:36 Urine Bacteria (Auto) 1+ /HPF (Negative) 07/07/19 03:36 Urine Mucus Few /HPF 07/07/19 03:36 Urine Opiates Screen Presumptive negative 07/07/19 03:36 Urine Methadone Screen Presumptive negative 07/07/19 03:36 Ur Barbiturates Screen Presumptive negative 07/07/19 03:36 Ur Phencyclidine Scrn Presumptive negative 07/07/19 03:36 Ur Amphetamines Screen Presumptive negative 07/07/19 03:36 U Benzodiazepines Scrn Presumptive negative 07/07/19 03:36 Urine Cocaine Screen Presumptive negative 07/07/19 03:36 U Marijuana (THC) Screen Presumptive negative 07/07/19 03:36 Drugs of Abuse Note Disclamer 07/07/19 03:36 [place]/IV: Voiding Method Toilet IV Catheter Type [Left INT / Saline Lock Antecubital] Active Medications - Current Medications Current Medications: Generic Name Dose Route Start Last Admin Trade Name Freq PRN Reason Stop Dose Admin Acetaminophen/Hydrocodone Bitart 1 each 07/07/19 08:12 [place] 5/325 PO Q6HR PRN Pain, Moderate (4-6) Enoxaparin Sodium 40 mg 07/07/19 10:00 Enoxaparin SUB-Q QDAY HEVER Hydralazine HCl 10 mg 07/06/19 23:15 Apresoline IV Q6H PRN Hypertension Insulin Human Isoph/Insulin Regular 25 unit 07/07/19 17:00 Humulin 70/30 SUB-Q BIDDIAB HEVER Losartan Potassium 25 mg 07/07/19 10:00 Cozaar PO QDAY HEVER Metoclopramide HCl 10 mg 07/07/19 14:00 Reglan PO TID HEVER Ondansetron HCl 4 mg 07/07/19 08:10 Zofran IV Q4H PRN Nausea And Vomiting
[2019-07-07] MEDS ORDERED: KETOROLAC 10 MG TAB PO PRN (08:38)
[2019-07-07] MEDS: METOCLOPRAMIDE 10 MG TAB PO SCH ×3 (09:18→20:51)
[2019-07-07] MEDS: INSULIN NPH/REGULAR 70/30 INJ SUB-Q SCH ×2 (09:46→17:51)
[2019-07-07] MEDS: oxyCODONE /ACETAMINOPHEN 5-325MG TAB PO PRN ×2 (09:46→17:51)
[2019-07-07] MEDS: ENOXAPARIN 40 MG/0.4 ML INJ SUB-Q SCH (09:46)
[2019-07-07] MEDS: LOSARTAN 25 MG TAB PO SCH (09:46)
[2019-07-07 10:24] LABS: BUN/Creatinine Ratio 13; Blood Urea Nitrogen 9 mg/dL (7-17); Calcium 8.7 mg/dL (8.4-10.2); Hemolysis Index 7
[2019-07-07] MEDS: SODIUM CHLORIDE 0.9% 1000 ML 1,000 ML IV SCH ×2 (10:54→20:47)
[2019-07-07] MEDS ORDERED: METOCLOPRAMIDE 10 MG TAB PO SCH (14:00)
[2019-07-07] MEDS ORDERED: INSULIN NPH/REGULAR 70/30 INJ SUB-Q SCH (17:00)
[2019-07-08] MEDS: oxyCODONE /ACETAMINOPHEN 5-325MG TAB PO PRN ×2 (04:00→12:27)
[2019-07-08] MEDS ORDERED: INSULIN NPH/REGULAR 70/30 INJ SUB-Q SCH (09:00)
[2019-07-08] MEDS: LOSARTAN 25 MG TAB PO SCH (09:58)
[2019-07-08] MEDS: INSULIN LISPRO 100 UNIT/ML SUB-Q SCH ×2 (09:58→12:29)
[2019-07-08] MEDS: ENOXAPARIN 40 MG/0.4 ML INJ SUB-Q SCH (09:58)
[2019-07-08] MEDS: METOCLOPRAMIDE 10 MG TAB PO SCH (10:56)
--- NOTE | 2019-07-08 13:19 | Discharge Summary ---
Providers - Providers Date of Admission: 07/06/19 23:13 Date of discharge: 07/08/19 Attending physician: THU SAMPSON Primary care physician: DIRECTOR INSTRUCTIONAL MATERIAL Hospitalization Reason for admission: Nausea vomiting gastroparesis Condition: Stable Pertinent studies: Chest x-ray; no acute abnormality Hospital course: 23-year-old woman with a history of hypertension, diabetes comes emergency room with complaints of nausea vomiting, decreased oral intake over the last 1-1/2 weeks. The patient was admitted then discharge on 06/30, her symptoms started 2 days later. She returned to the emergency room on the and was discharged from the emergency room. She states her symptoms did not improve at all, patient will be admitted for intractable nausea vomiting secondary to gastroparesis. Admitted symptomatically managed Blood sugars blood pressures closely monitored medications optimized Patient also counseled the importance of adhering to the treatment plan And better control of blood sugars and follow-up visits with the doctors Patient also advised exercise as tolerated and weight reduction Patient verbalized understanding Hemodynamically and clinically stable at discharge And also advised to see rn paralegal for better management of diabetes As well as GI for further evaluation of gastroparesis as outpatient Discharge diagnosis and management --Hyponatremia; probably pseudohyponatremia Mild improvement --Hypokalemia; resolved --Uncontrolled diabetes mellitus;A1c 10.1 Accu-Chek sliding scale coverage ADA diet long-acting insulin Diabetic education, nutrition education Increased 70/30 insulin dose --Gastroparesis; secondary to hyperglycemia Supportive care, antiemetics, Reglan IV fluids, diet as tolerated, advised better control of blood sugars --Hypertension; moderate control Resume home antihypertensives, PRN hydralazine --Abnormal T4/normal TSH; Repeat thyroid function tests after 1 week at Ds office --Medical noncompliance; counseling The last 12 days patient had 5 ER visits Strongly advised to comply with medications and diet And follow-up with primary care physician --DVT prophylaxis; Lovenox Stable at discharge Disposition: CA-01 TO HOME OR SELFCARE Time spent for discharge: 32 min Core Measure Documentation - Palliative Care Palliative Care/ Comfort Measures: Not Applicable - Core Measures Any of the following diagnoses?: none Exam - Constitutional Vitals: Temp Pulse Resp BP Pulse Ox 98.5 F 83 20 152/99 98 07/08/19 08:05 07/08/19 08:05 07/08/19 08:05 07/08/19 08:05 07/08/19 08:05 General appearance: Present: no acute distress, well-nourished, obese - EENT Eyes: Present: PERRL, EOM intact - Neck Neck: Present: supple, normal ROM - Respiratory Respiratory effort: normal Respiratory: negative: rales, rhonchi, wheezing - Cardiovascular Rhythm: regular Heart Sounds: Present: S1 & S2 - Extremities Extremities: no ischemia, No edema - Abdominal General gastrointestinal: Present: soft, non-tender, non-distended, normal bowel sounds - Integumentary Integumentary: Present: clear, warm - Musculoskeletal Musculoskeletal: strength equal bilaterally - Psychiatric Psychiatric: appropriate mood/affect, cooperative - Neurologic Neurologic: moves all extremities Plan Activity: no restrictions Diet: diabetic Additional Instructions: Advised to see private rn paralegal for better management of diabetes. Advised to see Dr. Jacoby Harper, GI for further evaluation of gastroparesis. Exercise as tolerated and weight reduction. Increase 70/30 insulin dose to 28 units twice daily Follow up with: PRIMARY CAREMD [Primary Care Provider] - 3-5 Days ANGELIKA HARPER MD [Staff Physician] - 7 Days Prescriptions: RX: Lispro Insulin [HumaLOG] 5 unit SUB-Q ACHS #1 vial RX: Ondansetron [Zofran ODT TAB] 4 mg PO Q8HR PRN #20 tab.rapdis PRN Reason: Nausea And Vomiting
[2019-07-08 13:36] VITALS: BP 141/90
== END 2019-07-08 14:58 | disposition home or self-care (01) | DRG 74 ==
LOC: ED 18:06 → 2B-ACE 23:13
PROVIDERS: ADMIT Internal Medicine; ATTEND Internal Medicine
DX: E11.43 Type 2 diabetes mellitus with diabetic autonomic (poly)neuropathy (principal); E87.1 Hypo-osmolality and hyponatremia; Z68.41 Body mass index [BMI] 40.0-44.9, adult; E87.2 Acidosis; E87.6 Hypokalemia; K31.84 Gastroparesis; I10 Essential (primary) hypertension; E11.65 Type 2 diabetes mellitus with hyperglycemia; E66.9 Obesity, unspecified; E86.0 Dehydration; Z91.14 Patient's other noncompliance with medication regimen; Z82.49 Family history of ischemic heart disease and other diseases of the circulatory system; Z79.899 Other long term (current) drug therapy; Z79.4 Long term (current) use of insulin
CPT/HCPCS: 36415; 71045; 80048; 80053; 80307; 81001; 82805; 82962; 83690; 83735; 84100; 84439; 84443; 84702; 85025; 87086; 93005; G0378; J0360; J1170; J1650; J1815; J2405; J2765; J3480; J7030

== ENCOUNTER 2020-08-27 11:23 | Emergency (ER) | payer SELFPAY ==
[2020-08-27 11:43] VITALS: BP 204/132
[2020-08-27 12:48] LABS: Basophils % (Auto) 0.3 % (0.0-1.8); Eosinophils # (Auto) 0.1 K/mm3 (0.0-0.4); Eosinophils % (Auto) 1.4 % (0.0-4.3); Hematocrit 39.5 % (30.3-42.9); Hemoglobin 13.1 gm/dl (10.1-14.3); Lymphocytes # (Auto) 1.4 K/mm3 (1.2-5.4); Lymphocytes % (Auto) 19.5 % (13.4-35.0); Mean Corpuscular HGB Conc 33 % (30-34); Mean Corpuscular Volume 83 fl (79-97); Monocytes # (Auto) 0.4 K/mm3 (0.0-0.8); Monocytes % (Auto) 5.4 % (0.0-7.3); Platelet Count 308 K/mm3 (140-440); Red Blood Count 4.78 M/mm3 (3.65-5.03); Red Cell Distribution Width 13.1 % (13.2-15.2)
[2020-08-27 13:06] LABS: Alanine Aminotransferase 15 units/L (7-56); Albumin 4.3 g/dL (3.9-5); BUN/Creatinine Ratio 10; Blood Urea Nitrogen 8 mg/dL (7-17); Calcium 9.4 mg/dL (8.4-10.2); Hemolysis Index 0
--- NOTE | 2020-08-30 19:04 | Electrocardiograph Report ---
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
== END 2020-08-27 15:55 ==
LOC: ED 11:23
DX: E86.0 Dehydration (principal); R11.10 Vomiting, unspecified; Z53.21 Procedure and treatment not carried out due to patient leaving prior to being seen by health care provider
CPT/HCPCS: 36415; 80053; 84703; 85025; 93005

== ENCOUNTER 2020-12-29 20:31 | Inpatient (IN) | payer SELFPAY ==
[2020-12-29] MEDS ORDERED: ONDANSETRON 4 MG/2 ML INJ IV ONE ×2 (21:42→23:15)
[2020-12-29] MEDS ORDERED: MORPHINE 2 MG/1 ML INJ IV ONE ×2 (21:42→23:15)
[2020-12-29] MEDS ORDERED: SODIUM CHLORIDE 0.9% 1000 ML 1,000 ML IV ONE (21:42)
--- NOTE | 2020-12-29 21:56 | Emergency Department Report ---
ED General Adult HPI - General Chief complaint: Dyspnea/Respdistress Stated complaint: SOB Time Seen by Provider: 12/29/20 21:17 Source: patient Mode of arrival: Ambulatory Limitations: No Limitations - History of Present Illness Initial comments: 25-year-old female, history of insulin-dependent diabetes, presents to ED with complaint of abdominal pain, vomiting, shortness of breath. Patient states her symptoms began 2 days ago. She reports abdominal pain in the epigastric and right lower quadrant. She denies any diarrhea. Patient reports subjective fever. Patient reports she has been feeling short of breath as well. She denies any cough. Patient states she has been out of her insulin x2 weeks. States she checked her glucose on yesterday and it was running high at 300. -: days(s) (2) Location: abdomen Quality: aching Consistency: constant Improves with: none Worsens with: none Associated Symptoms: fever/chills, nausea/vomiting, shortness of breath Treatments Prior to Arrival: none - Related Data Previous Rx's Medication Instructions Recorded Last Taken Type Insulin NPH/Regular [NovoLIN 70/30] 25 unit SUB-Q BIDDIAB #1 units 07/01/19 10/05/19 Rx Ciprofloxacin HCl [Ciprofloxacin 500 mg PO Q12HR #10 tab 10/07/19 Unknown Rx TAB] Metoclopramide HCl [Reglan TAB] 5 mg PO TIDAC #20 tablet 10/07/19 Unknown Rx Pantoprazole [Protonix TAB] 40 mg PO DAILY #30 tablet 10/07/19 Unknown Rx Sucralfate [Carafate] 1 gm PO ACHS 14 Days 10/07/19 Unknown Rx Allergies Allergy/AdvReac Type Severity Reaction Status Date / Time ketorolac [From Toradol] AdvReac Nausea Verified 07/07/19 09:28 tramadol AdvReac Vomiting Verified 07/07/19 01:55 ED Review of Systems ROS: Stated complaint: SOB Other details as noted in HPI Comment: All other systems reviewed and negative Constitutional: fever Respiratory: shortness of breath. denies: cough Gastrointestinal: abdominal pain, nausea, vomiting. denies: diarrhea ED Past Medical Hx - Past Medical History Hx Hypertension: Yes Hx CVA: No Hx Heart Attack/AMI: No Hx Congestive Heart Failure: No Hx Diabetes: Yes Hx Deep Vein Thrombosis: No Hx Pulmonary Embolism: No Hx GERD: No Hx Liver Disease: No Hx Renal Disease: No Hx Sickle Cell Disease: No Hx Arthritis: No Hx Headaches / Migraines: No Hx Seizures: No Hx Kidney Stones: No Hx Psychiatric Treatment: No Hx Asthma: No Hx COPD: No Hx Tuberculosis: No Hx Dementia: No Hx HIV: No Additional medical history: Gastroparesis - Surgical History Hx Coronary Stent: No Hx Open Heart Surgery: No Hx Pacemaker: No Hx Internal Defibrillator: No Hx Cholecystectomy: No Hx Appendectomy: No Hx Breast Surgery: No - Social History Smoking Status: Never Smoker Substance Use Type: None - Medications Home Medications: Home Medications Medication Instructions Recorded Confirmed Last Taken Type Insulin NPH/Regular [NovoLIN 70/30] 25 unit SUB-Q BIDDIAB #1 units 07/01/19 10/06/19 10/05/19 Rx Ciprofloxacin HCl [Ciprofloxacin 500 mg PO Q12HR #10 tab 10/07/19 Unknown Rx TAB] Metoclopramide HCl [Reglan TAB] 5 mg PO TIDAC #20 tablet 10/07/19 Unknown Rx Pantoprazole [Protonix TAB] 40 mg PO DAILY #30 tablet 10/07/19 Unknown Rx Sucralfate [Carafate] 1 gm PO ACHS 14 Days 10/07/19 Unknown Rx ED Physical Exam - General Limitations: No Limitations General appearance: alert - Head Head exam: Present: atraumatic, normocephalic - Eye Eye exam: Present: normal appearance - ENT ENT exam: Present: mucous membranes moist - Neck Neck exam: Present: normal inspection - Respiratory Respiratory exam: Present: normal lung sounds bilaterally, other (Tachypnea present) - Cardiovascular Cardiovascular Exam: Present: normal rhythm, tachycardia - GI/Abdominal GI/Abdominal exam: Present: soft, tenderness (Epigastric and right lower quadrant). Absent: distended - Extremities Exam Extremities exam: Present: normal inspection - Neurological Exam Neurological exam: Present: alert, oriented X3 - Psychiatric Psychiatric exam: Present: normal affect, normal mood - Skin Skin exam: Present: warm, dry, intact, normal color ED Course Vital Signs 12/29/20 20:39 Temperature 97.3 F L Pulse Rate 117 H Respiratory 28 H Rate Blood Pressure 151/117 O2 Sat by Pulse 97 Oximetry - Consultations Consultation #1: 12/30/20 01:[address] White regarding admission. Would like for patient to be placed on an insulin drip and go to the ICU. ED Medical Decision Making - Lab Data Result diagrams: 12/29/20 21:44 12/29/20 21:44 - EKG Data -: EKG Interpreted by Me EKG shows normal: sinus rhythm, axis, intervals, QRS complexes, ST-T waves Rate: tachycardia - EKG Data Interpretation: no acute changes - Radiology Data Radiology results: report reviewed, image reviewed - Medical Decision Making 25-year-old female presents to ED with intractable nausea and vomiting, abdominal pain, elevated glucose. Patient reports she has not taken her insulin in 2 weeks because she ran out. Patient is hyperglycemic, with glucose of 420. Bicarb is also low with elevated anion gap, however ketones are negative. Spoke with hospitalist and he would like for patient to be placed on an insulin drip. Patient is experiencing some intractable abdominal pain and vomiting. CT abdomen pelvis was obtained which only shows right ovarian cyst. Patient will be admitted to Dr. Lopez, hospitalist, for further management. - Differential Diagnosis Hyperglycemia, DKA, appendicitis, pancreatitis Critical care attestation.: If time is entered above; I have spent that time in minutes in the direct care of this critically ill patient, excluding procedure time. ED Disposition Clinical Impression: Metabolic acidosis, Intractable nausea and vomiting, Abdominal pain, Ovarian cyst, Hyperglycemia Disposition: ADMITTED INPATIENT Is pt being admited?: Yes Condition: Stable Time of Disposition: 01:11
[2020-12-29 22:26] LABS: Alanine Aminotransferase 14 units/L (7-56); Albumin 3.9 g/dL (3.9-5); BUN/Creatinine Ratio 13; Blood Urea Nitrogen 13 mg/dL (7-17); Calcium 9.8 mg/dL (8.4-10.2); Hemolysis Index 2
[2020-12-29 22:27] LABS: Basophils % (Auto) 0.2 % (0.0-1.8); Eosinophils % (Auto) 0.1 % (0.0-4.3); Hemoglobin 13.9 gm/dl (10.1-14.3); Lymphocytes % (Auto) 7.9 % (13.4-35.0); Monocytes # (Auto) 0.3 K/mm3 (0.0-0.8); Monocytes % (Auto) 2.5 % (0.0-7.3)
[2020-12-29 22:34] LABS: Bilirubin,Direct < 0.2 mg/dL (0-0.2)
[2020-12-29 22:38] LABS: Hematocrit 42.4 % (30.3-42.9); Mean Corpuscular HGB Conc 33 % (30-34); Mean Corpuscular Volume 82 fl (79-97); Platelet Count 389 K/mm3 (140-440); Red Blood Count 5.19 M/mm3 (3.65-5.03); Red Cell Distribution Width 13.5 % (13.2-15.2)
--- NOTE | 2020-12-29 22:42 | XRay Report ---
CHEST 2 VIEWS INDICATION / CLINICAL INFORMATION: SOB. COMPARISON: 07/06/2019 FINDINGS: SUPPORT DEVICES: None. HEART / MEDIASTINUM: No significant abnormality. LUNGS / PLEURA: No significant pulmonary or pleural abnormality. No pneumothorax. ADDITIONAL FINDINGS: No significant additional findings. IMPRESSION: 1. No acute findings. Signer Name: Kishore Kauffman DO Signed: 12/29/2020 10:37 PM Workstation Name: [id number]
[2020-12-30] MEDS ORDERED: INSULIN REGULAR, HUMAN 100 UNITS/1 ML IV ONE (00:06)
--- NOTE | 2020-12-30 00:53 | Cat Scan Report ---
CT ABDOMEN AND PELVIS WITH CONTRAST INDICATION / CLINICAL INFORMATION: RLQ, epigastric pain. TECHNIQUE: Axial CT images were obtained through the abdomen and pelvis after 100 cc of Omnipaque [address] scans at this location are performed using CT dose reduction for ALARA by means of automated exposure control. COMPARISON: 10/05/2019 FINDINGS: LOWER CHEST: No significant abnormality. AORTA / ARTERIES: No significant abnormality. IVC / VEINS: No significant abnormality. LYMPH NODES: No significant adenopathy. COLON: No significant abnormality. APPENDIX: No significant abnormality. STOMACH / SMALL BOWEL: No significant abnormality. PERITONEUM: No free fluid. No free air. No fluid collection. LIVER: No significant abnormality. GALLBLADDER: No significant abnormality. BILE DUCTS: No significant abnormality. PANCREAS: No significant abnormality. SPLEEN: No significant abnormality. ADRENALS: No significant abnormality. RIGHT KIDNEY / URETER: Nonobstructing nephrolithiasis LEFT KIDNEY / URETER: Nonobstructing nephrolithiasis URINARY BLADDER: No significant abnormality. REPRODUCTIVE ORGANS: There is a 2.4 cm right ovarian cyst. SKELETAL SYSTEM: No significant abnormality. ADDITIONAL FINDINGS: None. IMPRESSION: 1. No appendicitis. There is a 2.4 cm right ovarian cyst. 2. Bilateral nonobstructing nephrolithiasis. Signer Name: Kishore Kauffman DO Signed: 12/30/2020 12:49 AM Workstation Name: [id number]
[2020-12-30 01:00] LABS: Bacteria,Urine 1+ /HPF (Negative); Bilirubin,Urine NEG (Negative); Blood,Urine NEG (Negative); Color,Urine Yellow (Yellow); Mucus,Urine FEW /HPF; Urobilinogen,Urine < 2.0 mg/dL (<2.0)
[2020-12-30 01:05] LABS: Protein,Urine >500 mg/dL (Negative)
[2020-12-30] MEDS ORDERED: SODIUM CHLORIDE 0.9% 1000 ML 1,000 ML IV ONE ×3 (01:56→09:45)
[2020-12-30] MEDS ORDERED: INSULIN REGULAR, HUMAN 100 UNITS in SODIUM CHLORIDE 0.9% 99 ML IV SCH ×2 (02:00→03:00)
[2020-12-30] MEDS ORDERED: MAGNESIUM HYDROXIDE (MOM) ORAL LIQD UDC PO PRN (02:08)
[2020-12-30] MEDS ORDERED: DEXTROSE 50% IN WATER (25GM) 50 ML SYRINGE IV PRN ×2 (02:08→09:25)
[2020-12-30] MEDS ORDERED: ACETAMINOPHEN 325 MG TAB PO PRN (02:08)
[2020-12-30] MEDS ORDERED: SODIUM CHLORIDE 0.9% 1000 ML 1,000 ML IV SCH (02:15)
--- NOTE | 2020-12-30 02:29 | History and Physical Report ---
History of Present Illness Date of examination: 12/30/20 Date of admission: 12/30/20 01:11 Chief complaint: Nausea and vomiting Abdominal pain History of present illness: 5-year-old female with known history of diabetes mellitus presenting to the emergency room today complaining of nausea and vomiting with associated abdominal pain. Symptoms has been ongoing for the past 2 days. Patient indicates that she has been out of her insulin for about 2 weeks. She denies any fever or chills, no chest pain but has had occasional shortness of breath shortness of breath, no headache or dizziness and no diaphoresis. Patient checked her blood sugar sometime yesterday and was quite elevated in the 300s. Upon arrival in the emergency room today blood glucose was in the 400s with anion gap of 28. CT of the abdomen and pelvis reveals bilateral nonobstructing nephrolithiasis, no appendicitis, there is a 2.4 cm right ovarian cyst. Urinalysis also reveals a slightly cloudy urine with trace leukocytes, few WBC and bacteria. Past History Past Medical History: diabetes, other (Gastroparesis) Past Surgical History: No surgical history Social history: no significant social history Family history: no significant family history Medications and Allergies Allergies Allergy/AdvReac Type Severity Reaction Status Date / Time ketorolac [From Toradol] AdvReac Nausea Verified 07/07/19 09:28 tramadol AdvReac Vomiting Verified 07/07/19 01:55 Home Medications Medication Instructions Recorded Confirmed Last Taken Type Insulin NPH/Regular [NovoLIN 70/30] 25 unit SUB-Q BIDDIAB #1 units 07/01/19 10/06/19 10/05/19 Rx Ciprofloxacin HCl [Ciprofloxacin 500 mg PO Q12HR #10 tab 10/07/19 Unknown Rx TAB] Metoclopramide HCl [Reglan TAB] 5 mg PO TIDAC #20 tablet 10/07/19 Unknown Rx Pantoprazole [Protonix TAB] 40 mg PO DAILY #30 tablet 10/07/19 Unknown Rx Sucralfate [Carafate] 1 gm PO ACHS 14 Days 10/07/19 Unknown Rx Active Meds: Active Medications Acetaminophen (Acetaminophen 325 Mg Tab) 650 mg PO Q6H PRN PRN Reason: Pain MILD(1-3)/Fever >100.5/OCAMPO Dextrose (Dextrose 50% In Water (25gm) 50 Ml Syringe) 0 ml IV Q30MIN PRN; Protocol PRN Reason: Hypoglycemia Heparin Sodium (Porcine) (Heparin 5,000 Unit/1 Ml Vial) 5,000 unit SUB-Q Q8HR HEVER Insulin Human Regular 100 (units/ Sodium Chloride) 100 mls @ 1 mls/hr IV TITR HEVER; Protocol Sodium Chloride (Nacl 0.9% 1000 Ml) 1,000 mls @ 999 mls/hr IV BOLUS ONE Stop: 12/30/20 02:56 Last Admin: 12/30/20 02:14 Dose: 999 mls/hr Documented by: Sodium Chloride (Nacl 0.9% 1000 Ml) 1,000 mls @ 999 mls/hr IV BOLUS ONE Stop: 12/30/20 02:57 Last Admin: 12/30/20 02:14 Dose: 999 mls/hr Documented by: Insulin Human Regular 100 (units/ Sodium Chloride) 100 mls @ 1 mls/hr IV TITR HEVER; Protocol Sodium Chloride (Nacl 0.9% 1000 Ml) 1,000 mls @ 150 mls/hr IV DIRECT HEVER Potassium Chloride/Dextrose/Sod Cl (D5w/0.45% Nacl/Kcl 20 Meq) 20 meq in 1,000 mls @ 125 mls/hr IV DIRECT HEVER Magnesium Hydroxide (Magnesium Hydroxide (Mom) Oral Liqd Udc) 30 ml PO Q4H PRN PRN Reason: Constipation Morphine Sulfate (Morphine 2 Mg/1 Ml Inj) 2 mg IV Q4H PRN PRN Reason: Pain, Moderate (4-6) Morphine Sulfate (Morphine 4 Mg/1 Ml Inj) 4 mg IV Q4H PRN PRN Reason: Pain , Severe (7-10) Ondansetron HCl (Ondansetron 4 Mg/2 Ml Inj) 4 mg IV Q8H PRN PRN Reason: Nausea And Vomiting Sodium Chloride (Sodium Chloride 0.9% 10 Ml Flush Syringe) 10 ml IV BID HEVER Sodium Chloride (Sodium Chloride 0.9% 10 Ml Flush Syringe) 10 ml IV PRN PRN PRN Reason: LINE FLUSH Review of Systems Constitutional: no fever, no chills Ears, nose, mouth and throat: no nasal congestion, no sore throat Cardiovascular: no chest pain, no palpitations Respiratory: no cough, no shortness of breath Gastrointestinal: abdominal pain, nausea, vomiting Genitourinary Female: no pelvic pain, no flank pain, no dysuria, no hematuria Musculoskeletal: no neck pain, no low back pain Integumentary: no rash, no pruritis Neurological: no headaches, no confusion Psychiatric: no anxiety, no depression Endocrine: no polyphagia, no polydipsia, no polyuria, no nocturia Exam - Constitutional Vitals: Temp Pulse Resp BP Pulse Ox 97.3 F L 117 H 28 H 151/117 97 12/29/20 20:39 12/29/20 20:39 12/29/20 20:39 12/29/20 20:39 12/29/20 20:39 General appearance: Present: no acute distress, well-nourished - EENT Eyes: Present: PERRL, EOM intact. Absent: scleral icterus ENT: hearing intact, clear oral mucosa, dentition normal - Neck Neck: Present: supple, normal ROM - Respiratory Respiratory effort: normal Respiratory: bilateral: CTA - Cardiovascular Rhythm: regular Heart Sounds: Present: S1 & S2. Absent: gallop, systolic murmur, diastolic murmur, rub, click - Extremities Extremities: no ischemia, pulses intact, pulses symmetrical, No edema, normal temperature, normal color, Full ROM Peripheral Pulses: within normal limits - Abdominal General gastrointestinal: Present: soft, non-tender, non-distended, normal bowel sounds. Absent: mass - Integumentary Integumentary: Present: clear, warm, dry. Absent: rash - Musculoskeletal Musculoskeletal: strength equal bilaterally - Psychiatric Psychiatric: appropriate mood/affect, intact judgment & insight, memory intact, cooperative - Neurologic Neurologic: CNII-XII intact, no focal deficits, moves all extremities Results - Labs CBC & Chem 7: 12/29/20 21:44 12/29/20 21:44 Labs: Abnormal lab results 12/29/20 12/29/20 12/29/20 Range/Units 21:41 21:44 21:44 WBC 12.4 H (4.5-11.0) K/mm3 RBC 5.19 H (3.65-5.03) M/mm3 MCH 27 L (28-32) pg Lymph % (Auto) 7.9 L (13.4-35.0) % Lymph # (Auto) 1.0 L (1.2-5.4) K/mm3 Seg Neutrophils % 89.3 H (40.0-70.0) % Seg Neutrophils # 11.0 H (1.8-7.7) K/mm3 VBG pH (7.320-7.420) Sodium 132 L (137-145) mmol/L Chloride 93.4 L (98-107) mmol/L Carbon Dioxide 15 L (22-30) mmol/L Glucose 420 H (65-100) mg/dL POC Glucose 397 H (70-105) mg/dL Total Protein 8.6 H (6.3-8.2) g/dL Urine WBC (Auto) (0.0-6.0) /HPF 12/29/20 12/30/20 Range/Units 21:44 00:32 WBC (4.5-11.0) K/mm3 RBC (3.65-5.03) M/mm3 MCH (28-32) pg Lymph % (Auto) (13.4-35.0) % Lymph # (Auto) (1.2-5.4) K/mm3 Seg Neutrophils % (40.0-70.0) % Seg Neutrophils # (1.8-7.7) K/mm3 VBG pH 7.437 H (7.320-7.420) Sodium (137-145) mmol/L Chloride (98-107) mmol/L Carbon Dioxide (22-30) mmol/L Glucose (65-100) mg/dL POC Glucose (70-105) mg/dL Total Protein (6.3-8.2) g/dL Urine WBC (Auto) 8.0 H (0.0-6.0) /HPF Assessment and Plan - Patient Problems (1) Hyperglycemia Current Visit: Yes Status: Acute Plan to address problem: Patient in mild DKA. Patient placed on IV fluid and insulin drip. We will monitor Accu-Cheks closely. (2) Intractable nausea and vomiting Current Visit: Yes Status: Acute Plan to address problem: Patient has been placed on IV Zofran as needed We will continue on IV fluid. (3) Abdominal pain Current Visit: Yes Status: Acute Plan to address problem: Possibly secondary to the intractable nausea and vomiting. (4) DVT prophylaxis Current Visit: No Status: Acute Plan to address problem: Patient placed on subcutaneous heparin. (5) Full code status Current Visit: Yes Status: Acute Plan to address problem: Patient is full code.
[2020-12-30] MEDS: MORPHINE 4 MG/1 ML INJ IV PRN ×3 (02:48→14:55)
[2020-12-30] MEDS: ONDANSETRON 4 MG/2 ML INJ IV PRN ×2 (02:49→14:55)
[2020-12-30] MEDS ORDERED: D5W/0.45% NACL/KCL 20 MEQ 20 MEQ/1,000 ML BAG IV SCH (03:00)
[2020-12-30] MEDS ORDERED: hydrALAZINE 20 MG/1 ML INJ IV ONE (03:57)
[2020-12-30] MEDS ORDERED: hydrALAZINE 20 MG/1 ML INJ ONE (03:58)
[2020-12-30] MEDS: MORPHINE 2 MG/1 ML INJ IV PRN ×2 (04:05→21:50)
[2020-12-30 05:50] LABS: BUN/Creatinine Ratio 14; Blood Urea Nitrogen 14 mg/dL (7-17); Calcium 9.3 mg/dL (8.4-10.2); Hemolysis Index 0
[2020-12-30] MEDS ORDERED: METOCLOPRAMIDE 10 MG/2 ML INJ IV ONE (05:56)
[2020-12-30] MEDS: cefTRIAXone/NS 1 GM/50 ML 1 GM/50 ML BAG IV SCH (06:19)
[2020-12-30] MEDS: HEPARIN 5,000 UNIT/1 ML VIAL SUB-Q SCH ×3 (06:19→21:31)
[2020-12-30 09:00] LABS: BUN/Creatinine Ratio 15; Blood Urea Nitrogen 15 mg/dL (7-17); Calcium 9.5 mg/dL (8.4-10.2); Hemolysis Index 7
[2020-12-30] MEDS ORDERED: INSULIN REGULAR, HUMAN 100 UNITS/1 ML SUB-Q SCH (10:00)
[2020-12-30] MEDS ORDERED: SODIUM BICARB 8.4% 50 MEQ/50 ML SYRINGE IV SCH (10:00)
[2020-12-30] MEDS: SUCRALFATE 1 GM/10 ML ORAL LIQD PO SCH ×3 (11:34→21:31)
[2020-12-30] MEDS: METOCLOPRAMIDE 10 MG TAB PO SCH ×2 (11:34→16:30)
[2020-12-30] MEDS: INSULIN LISPRO 100 UNIT/ML SUB-Q SCH ×3 (11:35→21:32)
--- NOTE | 2020-12-30 13:46 | Event Note ---
Date: 12/30/20 Patient seen and examined, reports that she had not been compliant with her insulin due to her new work schedule and avoiding to eat. Counselling provided to the Patient on the right measures, using phone for alarm to remind her to eat and also the risk of none compliance. She is clinically improving and will downgrade to Telemetry.
[2020-12-30 14:20] LABS: BUN/Creatinine Ratio 16; Blood Urea Nitrogen 14 mg/dL (7-17); Calcium 8.9 mg/dL (8.4-10.2); Hemolysis Index 3
[2020-12-30] MEDS ORDERED: INSULIN NPH/REGULAR 70/30 INJ SUB-Q SCH (17:00)
[2020-12-30 18:15] LABS: BUN/Creatinine Ratio 13; Blood Urea Nitrogen 13 mg/dL (7-17); Calcium 8.9 mg/dL (8.4-10.2); Hemolysis Index 7
--- NOTE | 2020-12-30 19:14 | Consultation ---
History of Present Illness Consult date: 12/30/20 History of present illness: 25-year-old female Morbidly Obese with known history of diabetes mellitus presenting to the emergency room today complaining of nausea and vomiting with associated abdominal pain. Symptoms has been ongoing for the past 2 days. Patient indicates that she has been out of her insulin for about 2 weeks. She denies any fever or chills, no chest pain but has had occasional shortness of breath shortness of breath, no headache or dizziness and no diaphoresis. Patient checked her blood sugar sometime yesterday and was quite elevated in the 300s. Upon arrival in the emergency room today blood glucose was in the 400s with anion gap of 28. CT of the abdomen and pelvis reveals bilateral nonobstructing nephrolithiasis, no appendicitis, there is a 2.4 cm right ovarian cyst. Urinalysis also reveals a slightly cloudy urine with trace leukocytes, few WBC and bacteria. Patient denies smoking, alcohol or drug history. 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 Allergic Ketorlac, Tramadol. Patient alert, awake resting on room air. O2 saturation 92%. Says shortness of breath better now. patient afebrile. Mild leukocytosis. Blood pressure 175/104. pulse 104. Chest xray done 12/29/20 repiorted no acute findings. Patient is on ceftriaxone, S/C heparine, Protonix and sucralfate. Past History Past Medical History: diabetes, other (Gastroparesis) Past Surgical History: No surgical history Social history: no significant social history Family history: no significant family history Medications and Allergies Allergies Allergy/AdvReac Type Severity Reaction Status Date / Time ketorolac [From Toradol] AdvReac Nausea Verified 12/30/20 14:36 tramadol AdvReac Vomiting Verified 12/30/20 14:36 Home Medications Medication Instructions Recorded Confirmed Last Taken Type Insulin NPH/Regular [NovoLIN 70/30] 25 unit SUB-Q BIDDIAB #1 units 12/31/20 Unknown Rx Active Meds: Active Medications Acetaminophen (Acetaminophen 325 Mg Tab) 650 mg PO Q6H PRN PRN Reason: Pain MILD(1-3)/Fever >100.5/OCAMPO Dextrose (Dextrose 50% In Water (25gm) 50 Ml Syringe) 50 ml IV Q30MIN PRN; Protocol PRN Reason: Hypoglycemia Heparin Sodium (Porcine) (Heparin 5,000 Unit/1 Ml Vial) 5,000 unit SUB-Q Q8HR [facility] Last Admin: 12/30/20 14:55 Dose: 5,000 unit Documented by: Sodium Chloride (Nacl 0.9% 1000 Ml) 1,000 mls @ 150 mls/hr IV DIRECT HEVER Potassium Chloride/Dextrose/Sod Cl (D5w/0.45% Nacl/Kcl 20 Meq) 20 meq in 1,000 mls @ 125 mls/hr IV DIRECT HEVER Ceftriaxone Sodium (Rocephin/Ns 1 Gm/50 Ml) 1 gm in 50 mls @ 100 mls/hr IV Q24H [facility]; Protocol Stop: 01/01/21 06:29 Last Admin: 12/30/20 06:19 Dose: 100 mls/hr Documented by: Insulin Human Isoph/Insulin Regular (Insulin Nph/Regular 70/30 Inj) 25 unit SUB-Q BIDDIAB [facility] Last Admin: 12/30/20 18:29 Dose: 25 unit Documented by: Insulin Human Lispro (Insulin Lispro 100 Unit/Ml) 0 unit SUB-Q ACHS [facility]; Protocol Last Admin: 12/30/20 16:31 Dose: 3 unit Documented by: Magnesium Hydroxide (Magnesium Hydroxide (Mom) Oral Liqd Udc) 30 ml PO Q4H PRN PRN Reason: Constipation Metoclopramide HCl (Metoclopramide 10 Mg Tab) 5 mg PO TIDAC [facility] Last Admin: 12/30/20 16:30 Dose: 5 mg Documented by: Morphine Sulfate (Morphine 2 Mg/1 Ml Inj) 2 mg IV Q4H PRN PRN Reason: Pain, Moderate (4-6) Last Admin: 12/30/20 04:05 Dose: 2 mg Documented by: Morphine Sulfate (Morphine 4 Mg/1 Ml Inj) 4 mg IV Q4H PRN PRN Reason: Pain , Severe (7-10) Last Admin: 12/30/20 14:55 Dose: 4 mg Documented by: Ondansetron HCl (Ondansetron 4 Mg/2 Ml Inj) 4 mg IV Q8H PRN PRN Reason: Nausea And Vomiting Last Admin: 12/30/20 14:55 Dose: 4 mg Documented by: Sodium Chloride (Sodium Chloride 0.9% 10 Ml Flush Syringe) 10 ml IV BID [facility] Last Admin: 12/30/20 10:03 Dose: 10 ml Documented by: Sodium Chloride (Sodium Chloride 0.9% 10 Ml Flush Syringe) 10 ml IV PRN PRN PRN Reason: LINE FLUSH Sucralfate (Sucralfate 1 Gm/10 Ml Oral Liqd) 1 gm PO ACHS HEVER Last Admin: 12/30/20 16:30 Dose: 1 gm Documented by: Review of Systems All systems: negative Physical Examination Vital signs: Vital Signs Temp Pulse Resp BP Pulse Ox 97.3 F L 117 H 28 H 151/117 97 12/29/20 20:39 12/29/20 20:39 12/29/20 20:39 12/29/20 20:39 12/29/20 20:39 General appearance: no acute distress, alert Eyes: non-icteric ENT: oropharynx moist Neck: supple, no lymphadenopathy Effort: normal Ascultation: Bilateral: diminished breath sounds Cardiovascular: regular rate and rhythm Gastrointestinal: normoactive bowel sounds, soft, non-tender Integumentary: normal Extremities: no cyanosis, no edema Musculoskeletal: no deformities Gait: other (Patient resting in bed.) normal mental status, non-focal exam, pupils equal and round, CN II-XII normal depressed Results - Laboratory Findings CBC and BMP: 12/31/20 04:58 12/31/20 04:58 Abnormal lab findings: Abnormal Labs 12/29/20 12/29/20 12/29/20 21:41 21:44 21:44 WBC 12.4 H RBC 5.19 H MCH 27 L Lymph % (Auto) 7.9 L Lymph # (Auto) 1.0 L Seg Neutrophils % 89.3 H Seg Neutrophils # 11.0 H VBG pH Sodium 132 L Potassium Chloride 93.4 L Carbon Dioxide 15 L Glucose 420 H POC Glucose 397 H Total Protein 8.6 H Urine WBC (Auto) 12/29/20 12/30/20 12/30/20 21:44 00:32 03:34 WBC RBC MCH Lymph % (Auto) Lymph # (Auto) Seg Neutrophils % Seg Neutrophils # VBG pH 7.437 H Sodium Potassium Chloride Carbon Dioxide Glucose POC Glucose 330 H Total Protein Urine WBC (Auto) 8.0 H 12/30/20 12/30/20 12/30/20 05:02 05:07 06:24 WBC RBC MCH Lymph % (Auto) Lymph # (Auto) Seg Neutrophils % Seg Neutrophils # VBG pH Sodium Potassium Chloride Carbon Dioxide 16 L Glucose 304 H POC Glucose 267 H 261 H Total Protein Urine WBC (Auto) 12/30/20 12/30/20 12/30/20 07:38 08:06 08:35 WBC RBC MCH Lymph % (Auto) Lymph # (Auto) Seg Neutrophils % Seg Neutrophils # VBG pH Sodium Potassium Chloride Carbon Dioxide 19 L Glucose 255 H POC Glucose 215 H 236 H Total Protein Urine WBC (Auto) 12/30/20 12/30/20 12/30/20 10:01 11:27 13:46 WBC RBC MCH Lymph % (Auto) Lymph # (Auto) Seg Neutrophils % Seg Neutrophils # VBG pH Sodium Potassium 3.4 L D Chloride Carbon Dioxide 20 L Glucose 216 H POC Glucose 198 H 124 H Total Protein Urine WBC (Auto) 12/30/20 12/30/20 16:12 17:43 WBC RBC MCH Lymph % (Auto) Lymph # (Auto) Seg Neutrophils % Seg Neutrophils # VBG pH Sodium 132 L Potassium 3.3 L Chloride Carbon Dioxide 21 L Glucose 300 H POC Glucose 236 H Total Protein Urine WBC (Auto) - Diagnostic Findings Chest x-ray: report reviewed, image reviewed Additional studies: CHEST 2 VIEWS 12/29/20 INDICATION / CLINICAL INFORMATION: SOB. COMPARISON: 07/06/2019 FINDINGS: SUPPORT DEVICES: None. HEART / MEDIASTINUM: No significant abnormality. LUNGS / PLEURA: No significant pulmonary or pleural abnormality. No pneumothorax. ADDITIONAL FINDINGS: No significant additional findings. IMPRESSION: 1. No acute findings. Assessment and Plan 25-year-old female Morbidly Obese with known history of diabetes mellitus presenting to the emergency room today complaining of nausea and vomiting with associated abdominal pain. Symptoms has been ongoing for the past 2 days. Patient indicates that she has been out of her insulin for about 2 weeks. She denies any fever or chills, no chest pain but has had occasional shortness of breath shortness of breath, no headache or dizziness and no diaphoresis. Patient checked her blood sugar sometime yesterday and was quite elevated in the 300s. Upon arrival in the emergency room today blood glucose was in the 400s with anion gap of 28. CT of the abdomen and pelvis reveals bilateral nonobstructing nephrolithiasis, no appendicitis, there is a 2.4 cm right ovarian cyst. Urinalysis also reveals a slightly cloudy urine with trace leukocytes, few WBC and bacteria. Patient denies smoking, alcohol or drug history. 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 Allergic Ketorlac, Tramadol. Patient alert, awake resting on room air. O2 saturation 92%. Says shortness of breath better now. patient afebrile. Mild leukocytosis. Blood pressure 175/104. pulse 104. Chest xray done 12/29/20 repiorted no acute findings. Patient is on ceftriaxone, S/C heparine, Protonix and sucralfate. - Patient Problems (1) Metabolic acidosis Current Visit: Yes Status: Acute Plan to address problem: Anion gap 16. (2) Abdominal pain Current Visit: Yes Status: Acute Qualifiers: Qualified Code(s): R10.11 - Right upper quadrant pain Plan to address problem: Management as per primary care. (3) Dehydration Current Visit: No Status: Acute Plan to address problem: Patient is on I/V fluids normal saline.
[2020-12-31] MEDS ORDERED: hydrALAZINE 20 MG/1 ML INJ IV PRN ×2 (01:06→09:26)
[2020-12-31] MEDS: ONDANSETRON 4 MG/2 ML INJ IV PRN ×2 (02:13→09:41)
[2020-12-31] MEDS: MORPHINE 2 MG/1 ML INJ IV PRN ×2 (02:13→12:04)
[2020-12-31] MEDS: cefTRIAXone/NS 1 GM/50 ML 1 GM/50 ML BAG IV SCH (05:52)
[2020-12-31] MEDS: HEPARIN 5,000 UNIT/1 ML VIAL SUB-Q SCH ×3 (05:52→22:26)
[2020-12-31 06:20] LABS: Hematocrit 37.6 % (30.3-42.9); Hemoglobin 12.4 gm/dl (10.1-14.3); Mean Corpuscular HGB Conc 33 % (30-34); Mean Corpuscular Volume 83 fl (79-97); Platelet Count 291 K/mm3 (140-440); Red Blood Count 4.56 M/mm3 (3.65-5.03); Red Cell Distribution Width 13.1 % (13.2-15.2)
[2020-12-31 06:35] LABS: BUN/Creatinine Ratio 15; Blood Urea Nitrogen 12 mg/dL (7-17); Hemolysis Index 6
[2020-12-31 06:40] LABS: Alanine Aminotransferase 12 units/L (7-56); Albumin 3.4 g/dL (3.9-5); BUN/Creatinine Ratio 15; Blood Urea Nitrogen 12 mg/dL (7-17); Calcium 9.2 mg/dL (8.4-10.2); Hemolysis Index 1
[2020-12-31] MEDS: INSULIN LISPRO 100 UNIT/ML SUB-Q SCH ×3 (07:20→22:26)
--- NOTE | 2020-12-31 09:27 | Progress Note ---
Assessment and Plan Assessment and plan: Hospital course to date: 12/31/2020: Complained of abdominal pain this morning. Started patient on Protonix IV. Advised RN to give patient Reglan and Zofran this morning. Blood pressure was also noted to be in 200s systolic. Started patient on lisinopril 40 mg p.o. daily and Norvasc 5 mg p.o. daily. Hydralazine 10 mg IV x1 dose given. If symptomology improved, anion gap is closed and blood pressure better controlled this afternoon, will discharge patient home. Assessment and plan: (1) Diabetic ketoacidosis Current Visit: Yes Status: Acute Plan to address problem: Patient in mild DKA on admission Patient placed on IV fluid and insulin drip. Has since been discontinued On NPH 70/30 25 units twice daily We will monitor Accu-Cheks closely. (2) Hypertensive Emergency Current Visit: Yes Status: Acute Plan to address problem: BP on 12/31 enocunter 203/119 Hydralazine 10 mg IV x 1 administered, prn ordered Lisinopril 40 mg po daily and amlodipine 5 mg po daily initiated. (3) Intractable nausea and vomiting Current Visit: Yes Status: Acute Plan to address problem: Patient has been placed on IV Zofran as needed and Reglan as needed Protonix 40 mg IV daily started We will continue on IV fluid. (4) Abdominal pain Current Visit: Yes Status: Acute Plan to address problem: Possibly secondary to the intractable nausea and vomiting. (5) DVT prophylaxis Current Visit: No Status: Acute Plan to address problem: Patient placed on subcutaneous heparin. (6) Full code status Current Visit: Yes Status: Acute Plan to address problem: Patient is full code. History Interval history: Patient this a.m. stated that she was able to eat her breakfast however continues to have abdominal pain and some nausea. Complaining of abdominal pain and asking for pain medication. Discussed with patient that narcotic pain medication will not help symptoms. Symptomology likely due to ongoing diabetic ketoacidosis. Told patient we'll start Protonix to help with stomach pain. Hospitalist Physical - Physical exam Narrative exam: Physical Exam: VITAL SIGNS: Reviewed. GENERAL: The patient appears normally developed, Vital signs as documented. Elevated BMI HEAD: No signs of head trauma. EYES: Pupils are equal. Extraocular motions intact. EARS: Hearing grossly intact. MOUTH: Oropharynx is normal. NECK: No adenopathy, no JVD. CHEST: Chest with clear breath sounds bilaterally. No wheezes, rales, or rhonchi. CARDIAC: Regular rate and rhythm. S1 and S2, without murmurs, gallops, or rubs. VASCULAR: No Edema. Peripheral pulses normal and equal in all extremities. ABDOMEN: Soft, non tender and non distended. No rebound or guarding, and no masses palpated. Bowel Sounds normal. MUSCULOSKELETAL: Good range of motion of all major joints. Extremities without clubbing, cyanosis or edema. NEUROLOGIC EXAM: Alert and oriented x4. No focal neurological deficits. Cranial nerves intact PSYCHIATRIC: Mood normal. SKIN: detail exam as documented in skin assessment - Constitutional Vitals: Temp Pulse Resp BP Pulse Ox 98.2 F 107 H 18 203/119 100 12/31/20 03:05 12/31/20 08:20 12/31/20 03:05 12/31/20 08:03 12/31/20 08:20 General appearance: Present: no acute distress, well-nourished Results - Labs CBC & Chem 7: 12/31/20 04:58 12/31/20 04:58 Labs: Laboratory Last Values WBC 11.2 K/mm3 (4.5-11.0) H 12/31/20 04:58 RBC 4.56 M/mm3 (3.65-5.03) 12/31/20 04:58 Hgb 12.4 gm/dl (10.1-14.3) 12/31/20 04:58 Hct 37.6 % (30.3-42.9) 12/31/20 04:58 MCV 83 fl (79-97) 12/31/20 04:58 MCH 27 pg (28-32) L 12/31/20 04:58 MCHC 33 % (30-34) 12/31/20 04:58 RDW 13.1 % (13.2-15.2) L 12/31/20 04:58 Plt Count 291 K/mm3 (140-440) 12/31/20 04:58 Lymph % (Auto) 7.9 % (13.4-35.0) L 12/29/20 21:44 Sullivan % (Auto) 2.5 % (0.0-7.3) 12/29/20 21:44 Eos % (Auto) 0.1 % (0.0-4.3) 12/29/20 21:44 Baso % (Auto) 0.2 % (0.0-1.8) 12/29/20 21:44 Lymph # (Auto) 1.0 K/mm3 (1.2-5.4) L 12/29/20 21:44 Sullivan # (Auto) 0.3 K/mm3 (0.0-0.8) 12/29/20 21:44 Eos # (Auto) 0.0 K/mm3 (0.0-0.4) 12/29/20 21:44 Baso # (Auto) 0.0 K/mm3 (0.0-0.1) 12/29/20 21:44 Seg Neutrophils % 89.3 % (40.0-70.0) H 12/29/20 21:44 Seg Neutrophils # 11.0 K/mm3 (1.8-7.7) H 12/29/20 21:44 VBG pH 7.437 (7.320-7.420) H 12/29/20 21:44 Sodium 137 mmol/L (137-145) 12/31/20 04:58 Sodium 138 mmol/L (137-145) 12/31/20 04:58 Potassium 3.3 mmol/L (3.6-5.0) L 12/31/20 04:58 Potassium 3.5 mmol/L (3.6-5.0) L 12/31/20 04:58 Chloride 102.5 mmol/L (98-107) 12/31/20 04:58 Chloride 102.9 mmol/L (98-107) 12/31/20 04:58 Carbon Dioxide 21 mmol/L (22-30) L 12/31/20 04:58 Carbon Dioxide 23 mmol/L (22-30) 12/31/20 04:58 Anion Gap 16 mmol/L 12/31/20 04:58 Anion Gap 16 mmol/L 12/31/20 04:58 BUN 12 mg/dL (7-17) 12/31/20 04:58 BUN 12 mg/dL (7-17) 12/31/20 04:58 Creatinine 0.8 mg/dL (0.6-1.2) 12/31/20 04:58 Creatinine 0.8 mg/dL (0.6-1.2) 12/31/20 04:58 Estimated GFR > 60 ml/min 12/31/20 04:58 Estimated GFR > 60 ml/min 12/31/20 04:58 BUN/Creatinine Ratio 15 % 12/31/20 04:58 BUN/Creatinine Ratio 15 % 12/31/20 04:58 Glucose 180 mg/dL (65-100) H 12/31/20 04:58 Glucose 182 mg/dL (65-100) H 12/31/20 04:58 POC Glucose 154 mg/dL (70-105) H 12/31/20 07:58 Ketones Quantitative Negative (Negative) 12/29/20 21:44 Calcium 9.0 mg/dL (8.4-10.2) 12/31/20 04:58 Calcium 9.2 mg/dL (8.4-10.2) 12/31/20 04:58 Phosphorus 3.00 mg/dL (2.5-4.5) 12/30/20 05:07 Magnesium 2.00 mg/dL (1.7-2.3) 12/30/20 05:07 Total Bilirubin 0.50 mg/dL (0.1-1.2) 12/31/20 04:58 Direct Bilirubin < 0.2 mg/dL (0-0.2) 12/29/20 21:44 Indirect Bilirubin 0.4 mg/dL 12/29/20 21:44 AST 11 units/L (5-40) 12/31/20 04:58 ALT 12 units/L (7-56) 12/31/20 04:58 Alkaline Phosphatase 83 units/L (35-129) 12/31/20 04:58 Total Protein 6.7 g/dL (6.3-8.2) D 12/31/20 04:58 Albumin 3.4 g/dL (3.9-5) L 12/31/20 04:58 Albumin/Globulin Ratio 1.0 % 12/31/20 04:58 HCG, Qual Negative (Negative) 12/29/20 21:44 Urine Color Yellow (Yellow) 12/30/20 00:32 Urine Turbidity Slightly-cloudy (Clear) 12/30/20 00:32 Urine pH 5.0 (5.0-7.0) 12/30/20 00:32 Ur Specific [place] 1.026 (1.003-1.030) 12/30/20 00:32 Urine Protein >500 mg/dL (Negative) 12/30/20 00:32 Urine Glucose (UA) >=500 mg/dL (Negative) 12/30/20 00:32 Urine Ketones 80 mg/dL (Negative) 12/30/20 00:32 Urine Blood Neg (Negative) 12/30/20 00:32 Urine Nitrite Neg (Negative) 12/30/20 00:32 Urine Bilirubin Neg (Negative) 12/30/20 00:32 Urine Urobilinogen < 2.0 mg/dL (<2.0) 10 00:32 Ur Leukocyte Esterase Tr (Negative) 12/30/20 00:32 Urine WBC (Auto) 8.0 /HPF (0.0-6.0) H 12/30/20 00:32 Urine RBC (Auto) 2.0 /HPF (0.0-6.0) 12/30/20 00:32 U Epithel Cells (Auto) 11.0 /HPF (0-13.0) 12/30/20 00:32 Urine Bacteria (Auto) 1+ /HPF (Negative) 12/30/20 00:32 Urine Mucus Few /HPF 12/30/20 00:32 Gonsales/IV: Voiding Method Toilet Active Medications - Current Medications Current Medications: Generic Name Dose Route Start Last Admin Trade Name Freq PRN Reason Stop Dose Admin Acetaminophen 650 mg 12/30/20 02:08 Acetaminophen 325 Mg Tab PO Q6H PRN Pain MILD(1-3)/Fever >100.5/OCAMPO Amlodipine Besylate 5 mg 12/31/20 09:26 Amlodipine 5 Mg Tab PO QDAY HEVER Dextrose 50 ml 12/30/20 09:25 Dextrose 50% In Water (25gm) 50 Ml Syringe IV Q30MIN PRN Hypoglycemia Protocol Heparin Sodium (Porcine) 5,000 unit 12/30/20 06:00 12/31/20 05:52 Heparin 5,000 Unit/1 Ml Vial SUB-Q 5,000 unit Q8HR HEVER Administration Hydralazine HCl 10 mg 12/31/20 09:26 Hydralazine 20 Mg/1 Ml Inj IV Q4H PRN Hypertension Sodium Chloride 1,000 mls @ 150 mls/hr 12/30/20 02:15 12/30/20 21:50 Nacl 0.9% 1000 Ml IV 150 mls/hr DIRECT HEVER Administration Ceftriaxone Sodium 1 gm in 50 mls @ 100 mls/hr 12/30/20 06:00 12/31/20 05:52 Rocephin/Ns 1 Gm/50 Ml IV 01/01/21 06:29 100 mls/hr Q24H HEVER Administration Protocol Insulin Human Isoph/Insulin Regular 25 unit 12/30/20 17:00 12/30/20 18:29 Insulin Nph/Regular 70/30 Inj SUB-Q 25 unit BIDDIAB [facility]EVER Administration Insulin Human Lispro 0 unit 12/30/20 11:30 12/30/20 21:32 Insulin Lispro 100 Unit/Ml SUB-Q 3 unit ACHS HEVER Administration Protocol Lisinopril 40 mg 12/31/20 09:25 Lisinopril 40 Mg Tab PO QDAY HEVER Magnesium Hydroxide 30 ml 12/30/20 02:08 Magnesium Hydroxide (Mom) Oral Liqd Udc PO Q4H PRN Constipation Metoclopramide HCl 5 mg 12/30/20 11:30 12/30/20 16:30 Metoclopramide 10 Mg Tab PO 5 mg TIDAC HEVER Administration Morphine Sulfate 2 mg 12/30/20 02:08 12/31/20 02:13 Morphine 2 Mg/1 Ml Inj IV 2 mg Q4H PRN Administration Pain, Moderate (4-6) Morphine Sulfate 4 mg 12/30/20 02:08 12/30/20 14:55 Morphine 4 Mg/1 Ml Inj IV 4 mg Q4H PRN Administration Pain , Severe (7-10) Ondansetron HCl 4 mg 12/30/20 02:08 12/31/20 02:13 Ondansetron 4 Mg/2 Ml Inj IV 4 mg Q8H PRN Administration Nausea And Vomiting Pantoprazole Sodium 40 mg 12/31/20 10:00 Pantoprazole 40 Mg Inj IV QDAY HEVER Sodium Chloride 10 ml 12/30/20 10:00 12/30/20 21:32 Sodium Chloride 0.9% 10 Ml Flush Syringe IV 10 ml BID HEVER Administration Sodium Chloride 10 ml 12/30/20 02:08 Sodium Chloride 0.9% 10 Ml Flush Syringe IV PRN PRN LINE FLUSH Sucralfate 1 gm 12/30/20 11:30 12/30/20 21:31 Sucralfate 1 Gm/10 Ml Oral Liqd PO 1 gm ACHS HEVER Administration Nutrition/Malnutrition Assess - Dietary Evaluation Nutrition/Malnutrition Findings: Nutrition Notes Start: 12/30/20 10:30 Freq: Status: Active Protocol: Document 12/30/20 10:30 GB (Rec: 12/30/20 10:39 GB [id number]) Nutrition Notes Need for Assessment generated from: MD Order,Education Initial or Follow up Assessment Current Diagnosis Diabetes Other Pertinent Diagnosis n/v, abdominal pain Current Diet consistent carbohydrate Labs/Tests 12/30: glucose 255 - showing improvement Pertinent Medications NaCl 150ml/hr, KCl/D5/NaCl 125ml/hr (510kcal) Height 5 ft 2 in Weight 108.862 kg Bastian Body Weight (kg) 50.00 BMI 43.9 Intake Prior to Admission Good Weight change and time frame Admit weight. No reported weight change at admission Weight Status Morbidly Obese Subjective/Other Information Blood glucose recovering toward acceptable lab ranges. NO po intake recorded Percent of energy/protein needs met: 50% or greater PO intake of meals will meet 75% or greater of minimal estimated energy needs Burn Absent Trauma Absent GI Symptoms Nausea,Vomiting Food Allergy No Skin Integrity/Comment no reported complications Current % PO Other Minimum of two criteria No #1 Nutrition Diagnosis Altered nutrition-related laboratory values Comments: nutrition EDU order for DM Etiology n/v, abdominal pain As Evidenced by Signs and Symptoms pt reported no insulin [id number] , blood glucose severly elevated at admission Is patient on ventilator? No Is Patient Ambulatory and/or Out of Bed Yes REE-([facility]-ambulatory/OOB) [ 4625.931 [id number]] Kcal/Kg value to use for calculation 13 Approximate Energy Requirements Using 1415 kcal/Kg Calculation Used for Recommendations Kcal/kg Additional Notes Protein: 0.8-1 g/kg @ 109k-109g Fluids: 1ml/kcal or per Nutrition Intervention Change Diet Order: continue consistent carbohydrate Nutrition Support: n/a Add Supplement/Snack (indicate name/kcal n/a /protein ) Education Handouts Provided AND: General Healthy Nutrition therapy hand out to be reviewed and provided once pt admitted to floor Goal #1 PO intake of meals to be 50% or greater daily during LOS Goal #2 Review and provide Healthy Nutrition therapy education handout once admitted to floor . Follow-Up By: 01/01/21 Additional Comments f/u: Nutrition EDU (DM), labs, po intake
[2020-12-31] MEDS: SUCRALFATE 1 GM/10 ML ORAL LIQD PO SCH ×4 (09:41→22:26)
[2020-12-31] MEDS: METOCLOPRAMIDE 10 MG TAB PO SCH ×3 (09:41→18:00)
[2020-12-31] MEDS: amLODIPine 5 MG TAB PO SCH ×2 (10:56→17:57)
[2020-12-31] MEDS: PANTOPRAZOLE 40 MG INJ IV SCH (12:01)
[2020-12-31] MEDS: LISINOPRIL 40 MG TAB PO SCH (12:04)
[2020-12-31 12:11] LABS: BUN/Creatinine Ratio 12; Blood Urea Nitrogen 13 mg/dL (7-17); Calcium 9.4 mg/dL (8.4-10.2); Hemolysis Index 5
[2020-12-31] MEDS: INSULIN REGULAR, HUMAN 100 UNITS/1 ML SUB-Q SCH ×2 (17:59→22:25)
[2020-12-31] MEDS: INSULIN NPH/REGULAR 70/30 INJ SUB-Q SCH (18:00)
--- NOTE | 2020-12-31 21:17 | Progress Note ---
Assessment and Plan 25-year-old female Morbidly Obese with known history of diabetes mellitus presenting to the emergency room today complaining of nausea and vomiting with associated abdominal pain. Symptoms has been ongoing for the past 2 days. Patient indicates that she has been out of her insulin for about 2 weeks. She denies any fever or chills, no chest pain but has had occasional shortness of breath shortness of breath, no headache or dizziness and no diaphoresis. Patient checked her blood sugar sometime yesterday and was quite elevated in the 300s. Upon arrival in the emergency room today blood glucose was in the 400s with anion gap of 28. CT of the abdomen and pelvis reveals bilateral nonobstructing nephrolithiasis, no appendicitis, there is a 2.4 cm right ovarian cyst. Urinalysis also reveals a slightly cloudy urine with trace leukocytes, few WBC and bacteria. Patient denies smoking, alcohol or drug history. 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 Allergic Ketorlac, Tramadol. Patient sleeping on room air. O2 saturation 92%. Says shortness of breath better now. patient afebrile. Mild leukocytosis. Blood pressure 122/72. pulse 101. Chest xray done 12/29/20 reported no acute findings. Patient is on ceftriaxone, S/C heparine, Protonix and sucralfate. - Patient Problems (1) Metabolic acidosis Current Visit: Yes Status: Acute Plan to address problem: Anion gap 18. Glucose 256. (2) Abdominal pain Current Visit: Yes Status: Acute Qualifiers: Qualified Code(s): R10.11 - Right upper quadrant pain Plan to address problem: Management as per primary care. (3) Dehydration Current Visit: No Status: Acute Plan to address problem: Patient is on I/V fluids normal saline. Subjective Date of service: 12/31/20 Interval history: 25-year-old female Morbidly Obese with known history of diabetes mellitus presenting to the emergency room today complaining of nausea and vomiting with associated abdominal pain. Symptoms has been ongoing for the past 2 days. Patient indicates that she has been out of her insulin for about 2 weeks. She denies any fever or chills, no chest pain but has had occasional shortness of breath shortness of breath, no headache or dizziness and no diaphoresis. Patient checked her blood sugar sometime yesterday and was quite elevated in the 300s. Upon arrival in the emergency room today blood glucose was in the 400s with anion gap of 28. CT of the abdomen and pelvis reveals bilateral nonobstructing nephrolithiasis, no appendicitis, there is a 2.4 cm right ovarian cyst. Urinalysis also reveals a slightly cloudy urine with trace leukocytes, few WBC and bacteria. Patient denies smoking, alcohol or drug history. 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 Allergic Ketorlac, Tramadol. Patient sleeping on room air. O2 saturation 92%. Says shortness of breath better now. patient afebrile. Mild leukocytosis. Blood pressure 122/72. pulse 101. Chest xray done 12/29/20 repiorted no acute findings. Patient is on ceftriaxone, S/C heparine, Protonix and sucralfate. Objective Vital Signs - 12hr 12/31/20 12/31/20 14:27 19:38 Temperature 98.6 F Pulse Rate 101 H Respiratory 16 Rate Blood Pressure 155/82 122/72 O2 Sat by Pulse 92 Oximetry Constitutional: no acute distress, alert Eyes: non-icteric ENT: oropharynx moist Neck: supple, no lymphadenopathy Effort: normal Ascultation: Bilateral: diminished breath sounds Cardiovascular: regular rate and rhythm Gastrointestinal: normoactive bowel sounds, soft, non-tender Integumentary: normal Extremities: no cyanosis, no edema Neurologic: normal mental status, non-focal exam, pupils equal and round, CN II- XII normal Psychiatric: depressed CBC and BMP: 12/31/20 04:58 01/01/21 05:06 Abnormal lab findings: Abnormal Labs 12/29/20 12/29/20 12/29/20 21:41 21:44 21:44 WBC 12.4 H RBC 5.19 H MCH 27 L RDW Lymph % (Auto) 7.9 L Lymph # (Auto) 1.0 L Seg Neutrophils % 89.3 H Seg Neutrophils # 11.0 H VBG pH Sodium 132 L Potassium Chloride 93.4 L Carbon Dioxide 15 L Glucose 420 H POC Glucose 397 H Total Protein 8.6 H Albumin Urine WBC (Auto) 12/29/20 12/30/20 12/30/20 21:44 00:32 03:34 WBC RBC MCH RDW Lymph % (Auto) Lymph # (Auto) Seg Neutrophils % Seg Neutrophils # VBG pH 7.437 H Sodium Potassium Chloride Carbon Dioxide Glucose POC Glucose 330 H Total Protein Albumin Urine WBC (Auto) 8.0 H 12/30/20 12/30/20 12/30/20 05:02 05:07 06:24 WBC RBC MCH RDW Lymph % (Auto) Lymph # (Auto) Seg Neutrophils % Seg Neutrophils # VBG pH Sodium Potassium Chloride Carbon Dioxide 16 L Glucose 304 H POC Glucose 267 H 261 H Total Protein Albumin Urine WBC (Auto) 12/30/20 12/30/20 12/30/20 07:38 08:06 08:35 WBC RBC MCH RDW Lymph % (Auto) Lymph # (Auto) Seg Neutrophils % Seg Neutrophils # VBG pH Sodium Potassium Chloride Carbon Dioxide 19 L Glucose 255 H POC Glucose 215 H 236 H Total Protein Albumin Urine WBC (Auto) 12/30/20 12/30/20 12/30/20 10:01 11:27 13:46 WBC RBC MCH RDW Lymph % (Auto) Lymph # (Auto) Seg Neutrophils % Seg Neutrophils # VBG pH Sodium Potassium 3.4 L D Chloride Carbon Dioxide 20 L Glucose 216 H POC Glucose 198 H 124 H Total Protein Albumin Urine WBC (Auto) 12/30/20 12/30/20 12/30/20 16:12 17:43 21:05 WBC RBC MCH RDW Lymph % (Auto) Lymph # (Auto) Seg Neutrophils % Seg Neutrophils # VBG pH Sodium 132 L Potassium 3.3 L Chloride Carbon Dioxide 21 L Glucose 300 H POC Glucose 236 H 264 H Total Protein Albumin Urine WBC (Auto) 12/31/20 12/31/20 12/31/20 04:58 04:58 04:58 WBC 11.2 H RBC MCH 27 L RDW 13.1 L Lymph % (Auto) Lymph # (Auto) Seg Neutrophils % Seg Neutrophils # VBG pH Sodium Potassium 3.3 L 3.5 L Chloride Carbon Dioxide 21 L Glucose 180 H 182 H POC Glucose Total Protein Albumin 3.4 L Urine WBC (Auto) 12/31/20 12/31/20 12/31/20 07:58 10:40 11:38 WBC RBC MCH RDW Lymph % (Auto) Lymph # (Auto) Seg Neutrophils % Seg Neutrophils # VBG pH Sodium 136 L Potassium 3.5 L Chloride Carbon Dioxide 21 L Glucose 262 H POC Glucose 154 H 256 H Total Protein Albumin Urine WBC (Auto) 12/31/20 12/31/20 16:02 20:20 WBC RBC MCH RDW Lymph % (Auto) Lymph # (Auto) Seg Neutrophils % Seg Neutrophils # VBG pH Sodium Potassium Chloride Carbon Dioxide Glucose POC Glucose 164 H 248 H Total Protein Albumin Urine WBC (Auto)
[2021-01-01 06:43] LABS: BUN/Creatinine Ratio 16; Blood Urea Nitrogen 18 mg/dL (7-17); Calcium 8.7 mg/dL (8.4-10.2); Hemolysis Index 4
[2021-01-01] MEDS: MORPHINE 2 MG/1 ML INJ IV PRN (07:08)
--- NOTE | 2021-01-01 07:33 | Cat Scan Report ---
CT HEAD WITHOUT CONTRAST INDICATION / CLINICAL INFORMATION: Headache and LEFT side numbness. TECHNIQUE: All CT scans at this location are performed using CT dose reduction for ALARA by means of automated exposure control. COMPARISON: None available. FINDINGS: HEMORRHAGE: None. EXTRA-AXIAL SPACES: Normal in size and morphology for the patient's age. VENTRICULAR SYSTEM: Normal in size and morphology for the patient's age. CEREBRAL PARENCHYMA: No significant abnormality. No acute territorial infarct. MIDLINE SHIFT / HERNIATION: None. CEREBELLUM / BRAINSTEM: No significant abnormality. ORBITS: Normal as visualized SOFT TISSUES: No significant abnormality. SKULL: No significant abnormality. PARANASAL SINUSES / MASTOID AIR CELLS: Normal as visualized ADDITIONAL FINDINGS: None. IMPRESSION: 1. No acute intracranial abnormality. Signer Name: Kishore Kauffman DO Signed: 01/01/2021 7:29 AM Workstation Name: [id number]
--- NOTE | 2021-01-01 07:35 | Discharge Summary ---
Providers - Providers Date of Admission: 12/31/20 13:17 Date of discharge: 01/01/21 Attending physician: JONATAN RICHARD MD 12/30/20 02:09 Consult to Dietitian/Nutrition [CONS] Routine Physician Instructions: Reason For Exam: Reason for Consult: Diet education Consult to Physician [CONS] Routine Comment: Consulting Provider: ROGER STRICKLAND Physician Instructions: Reason For Exam: DKA- ON INSULIN DRIP Primary care physician: OFFICE SYSTEMS TECHNOLOGY INSTRUCTOR Hospitalization Reason for admission: nausea/vomiting Condition: Stable Hospital course: HPI by admitting doctor 25-year-old female with known history of diabetes mellitus presenting to the emergency room today complaining of nausea and vomiting with associated abdominal pain. Symptoms has been ongoing for the past 2 days. Patient indicates that she has been out of her insulin for about 2 weeks. She denies any fever or chills, no chest pain but has had occasional shortness of breath shortness of breath, no headache or dizziness and no diaphoresis. Patient checked her blood sugar sometime yesterday and was quite elevated in the 300s. Upon arrival in the emergency room today blood glucose was in the 400s with anion gap of 28. CT of the abdomen and pelvis reveals bilateral nonobstructing nephrolithiasis, no appendicitis, there is a 2.4 cm right ovarian cyst. Urinalysis also reveals a slightly cloudy urine with trace leukocytes, few WBC and bacteria. hospital course to date 12/31/2020: Complained of abdominal pain this morning. Started patient on Protonix IV. Advised RN to give patient Reglan and Zofran this morning. Blood pressure was also noted to be in 200s systolic. Started patient on lisinopril 40 mg p.o. daily and Norvasc 5 mg p.o. daily. Hydralazine 10 mg IV x1 dose given. If symptomology improved, anion gap is closed and blood pressure better controlled this afternoon, will discharge patient home. 01/01/2021: Concern for numbness overnight. Associate Professor Of Economics ordered ct head, no acute abnormality was demonstrated on report. Blood sugar and blood pressure well controlled this AM. Patient will be discharged. She will be discharged home with prescriptions for nph 70/30, lisinopirl, amlodipine, and protonix. Assessment and plan: (1) Diabetic ketoacidosis Current Visit: Yes Status: Acute Plan to address problem: Patient in mild DKA on admission Patient placed on IV fluid and insulin drip. Has since been discontinued On NPH 70/30 25 units twice daily We will monitor Accu-Cheks closely. (2) Hypertensive Emergency Current Visit: Yes Status: Acute Plan to address problem: BP on 12/31 enocunter 203/119 Hydralazine 10 mg IV x 1 administered, prn ordered Lisinopril 40 mg po daily and amlodipine 5 mg po daily initiated. (3) Intractable nausea and vomiting Current Visit: Yes Status: Acute Plan to address problem: Patient has been placed on IV Zofran as needed and Reglan as needed Protonix 40 mg IV daily started We will continue on IV fluid. (4) Abdominal pain Current Visit: Yes Status: Acute Plan to address problem: Possibly secondary to the intractable nausea and vomiting. (5) DVT prophylaxis Current Visit: No Status: Acute Plan to address problem: Patient placed on subcutaneous heparin. (6) Full code status Current Visit: Yes Status: Acute Plan to address problem: Patient is full code. Disposition: 01 HOME / SELF CARE / HOMELESS Final Discharge Diagnosis (Prints w/discharge instructions): Diabetic Ketoacidosis Time spent for discharge: 35 - Discharge Diagnoses (1) Diabetic keto-acidosis Status: Acute Core Measure Documentation - Palliative Care Palliative Care/ Comfort Measures: Not Applicable - Core Measures Any of the following diagnoses?: none Exam - Physical Exam Narrative exam: Physical Exam: VITAL SIGNS: Reviewed. GENERAL: The patient appears normally developed, Vital signs as documented. Elevated BMI HEAD: No signs of head trauma. EYES: Pupils are equal. Extraocular motions intact. EARS: Hearing grossly intact. MOUTH: Oropharynx is normal. NECK: No adenopathy, no JVD. CHEST: Chest with clear breath sounds bilaterally. No wheezes, rales, or rhonchi. CARDIAC: Regular rate and rhythm. S1 and S2, without murmurs, gallops, or rubs. VASCULAR: No Edema. Peripheral pulses normal and equal in all extremities. ABDOMEN: Soft, non tender and non distended. No rebound or guarding, and no masses palpated. Bowel Sounds normal. MUSCULOSKELETAL: Good range of motion of all major joints. Extremities without clubbing, cyanosis or edema. NEUROLOGIC EXAM: Alert and oriented x4. No focal neurological deficits. Cranial nerves intact PSYCHIATRIC: Mood normal. SKIN: detail exam as documented in skin assessment - Constitutional Vitals: Temp Pulse Resp BP Pulse Ox 98.8 F 90 12 148/87 96 01/01/21 03:20 01/01/21 03:20 01/01/21 03:20 01/01/21 03:20 01/01/21 03:20 Plan Follow up with: PRIMARY CARE, [Primary Care Provider] - 7 Days Prescriptions: Insulin NPH/Regular [NovoLIN 70/30] 25 unit SUB-Q BIDDIAB #1 units
[2021-01-01] MEDS: SUCRALFATE 1 GM/10 ML ORAL LIQD PO SCH ×2 (08:47→13:12)
[2021-01-01] MEDS: METOCLOPRAMIDE 10 MG TAB PO SCH ×2 (08:48→13:14)
[2021-01-01] MEDS: HEPARIN 5,000 UNIT/1 ML VIAL SUB-Q SCH (08:48)
[2021-01-01] MEDS: INSULIN NPH/REGULAR 70/30 INJ SUB-Q SCH (08:49)
[2021-01-01] MEDS: LISINOPRIL 40 MG TAB PO SCH (09:53)
[2021-01-01] MEDS: INSULIN REGULAR, HUMAN 100 UNITS/1 ML SUB-Q SCH ×2 (09:54→13:21)
[2021-01-01] MEDS: PANTOPRAZOLE 40 MG INJ IV SCH (09:55)
[2021-01-01] MEDS: amLODIPine 5 MG TAB PO SCH (09:55)
[2021-01-01] MEDS: INSULIN LISPRO 100 UNIT/ML SUB-Q SCH ×3 (10:09→13:20)
[2021-01-01] MEDS ORDERED: oxyCODONE /ACETAMINOPHEN 5-325MG TAB PO ONE (11:30)
[2021-01-01 13:00] VITALS: BP 143/85
--- NOTE | 2021-01-01 13:45 | Progress Note ---
Assessment and Plan 25-year-old female Morbidly Obese with known history of diabetes mellitus presenting to the emergency room today complaining of nausea and vomiting with associated abdominal pain. Symptoms has been ongoing for the past 2 days. Patient indicates that she has been out of her insulin for about 2 weeks. She denies any fever or chills, no chest pain but has had occasional shortness of breath shortness of breath, no headache or dizziness and no diaphoresis. Patient checked her blood sugar sometime yesterday and was quite elevated in the 300s. Upon arrival in the emergency room today blood glucose was in the 400s with anion gap of 28. CT of the abdomen and pelvis reveals bilateral nonobstructing nephrolithiasis, no appendicitis, there is a 2.4 cm right ovarian cyst. Urinalysis also reveals a slightly cloudy urine with trace leukocytes, few WBC and bacteria. Patient denies smoking, alcohol or drug history. 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 Allergic Ketorlac, Tramadol. Patient sleeping on room air. O2 saturation 92%. Says shortness of breath better now. patient afebrile. Mild leukocytosis. Blood pressure 122/72. pulse 101. Chest xray done 12/29/20 reported no acute findings. Patient is on ceftriaxone, S/C heparine, Protonix and sucralfate. - Patient Problems (1) Metabolic acidosis Current Visit: Yes Status: Acute Plan to address problem: Anion gap 18. Glucose 256. (2) Abdominal pain Current Visit: Yes Status: Acute Qualifiers: Qualified Code(s): R10.11 - Right upper quadrant pain Plan to address problem: Management as per primary care. (3) Dehydration Current Visit: No Status: Acute Plan to address problem: Patient is on I/V fluids normal saline. Subjective Date of service: 01/01/21 Interval history: 25-year-old female Morbidly Obese with known history of diabetes mellitus presenting to the emergency room today complaining of nausea and vomiting with associated abdominal pain. Symptoms has been ongoing for the past 2 days. Patient indicates that she has been out of her insulin for about 2 weeks. She denies any fever or chills, no chest pain but has had occasional shortness of breath shortness of breath, no headache or dizziness and no diaphoresis. Patient checked her blood sugar sometime yesterday and was quite elevated in the 300s. Upon arrival in the emergency room today blood glucose was in the 400s with anion gap of 28. CT of the abdomen and pelvis reveals bilateral nonobstructing nephrolithiasis, no appendicitis, there is a 2.4 cm right ovarian cyst. Urinalysis also reveals a slightly cloudy urine with trace leukocytes, few WBC and bacteria. Patient denies smoking, alcohol or drug history. 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 Allergic Ketorlac, Tramadol. Patient sleeping on room air. O2 saturation 92%. Says shortness of breath better now. patient afebrile. Mild leukocytosis. Blood pressure 122/72. pulse 101. Chest xray done 12/29/20 repiorted no acute findings. Patient is on ceftriaxone, S/C heparine, Protonix and sucralfate. Objective Vital Signs - 12hr 01/01/21 01/01/21 01/01/21 03:20 08:17 08:24 Temperature 98.8 F 98.7 F Pulse Rate 90 95 H Respiratory 12 20 Rate Blood Pressure 148/87 147/95 O2 Sat by Pulse 96 96 Oximetry 01/01/21 01/01/21 01/01/21 09:53 09:55 12:08 Temperature 98.4 F Pulse Rate 85 85 101 H Respiratory 18 Rate Blood Pressure 143/85 O2 Sat by Pulse 100 Oximetry Constitutional: no acute distress, alert Eyes: non-icteric ENT: oropharynx moist Neck: supple, no lymphadenopathy Effort: normal Ascultation: Bilateral: diminished breath sounds Cardiovascular: regular rate and rhythm Gastrointestinal: normoactive bowel sounds, soft, non-tender Integumentary: normal Extremities: no cyanosis, no edema Neurologic: normal mental status, non-focal exam, pupils equal and round, CN II- XII normal Psychiatric: depressed CBC and BMP: 12/31/20 04:58 01/01/21 05:06 Abnormal lab findings: Abnormal Labs 12/29/20 12/29/20 12/29/20 21:41 21:44 21:44 WBC 12.4 H RBC 5.19 H MCH 27 L RDW Lymph % (Auto) 7.9 L Lymph # (Auto) 1.0 L Seg Neutrophils % 89.3 H Seg Neutrophils # 11.0 H VBG pH Sodium 132 L Potassium Chloride 93.4 L Carbon Dioxide 15 L BUN Glucose 420 H POC Glucose 397 H Total Protein 8.6 H Albumin Urine WBC (Auto) 12/29/20 12/30/20 12/30/20 21:44 00:32 03:34 WBC RBC MCH RDW Lymph % (Auto) Lymph # (Auto) Seg Neutrophils % Seg Neutrophils # VBG pH 7.437 H Sodium Potassium Chloride Carbon Dioxide BUN Glucose POC Glucose 330 H Total Protein Albumin Urine WBC (Auto) 8.0 H 12/30/20 12/30/20 12/30/20 05:02 05:07 06:24 WBC RBC MCH RDW Lymph % (Auto) Lymph # (Auto) Seg Neutrophils % Seg Neutrophils # VBG pH Sodium Potassium Chloride Carbon Dioxide 16 L BUN Glucose 304 H POC Glucose 267 H 261 H Total Protein Albumin Urine WBC (Auto) 12/30/20 12/30/20 12/30/20 07:38 08:06 08:35 WBC RBC MCH RDW Lymph % (Auto) Lymph # (Auto) Seg Neutrophils % Seg Neutrophils # VBG pH Sodium Potassium Chloride Carbon Dioxide 19 L BUN Glucose 255 H POC Glucose 215 H 236 H Total Protein Albumin Urine WBC (Auto) 12/30/20 12/30/20 12/30/20 10:01 11:27 13:46 WBC RBC MCH RDW Lymph % (Auto) Lymph # (Auto) Seg Neutrophils % Seg Neutrophils # VBG pH Sodium Potassium 3.4 L D Chloride Carbon Dioxide 20 L BUN Glucose 216 H POC Glucose 198 H 124 H Total Protein Albumin Urine WBC (Auto) 12/30/20 12/30/20 12/30/20 16:12 17:43 21:05 WBC RBC MCH RDW Lymph % (Auto) Lymph # (Auto) Seg Neutrophils % Seg Neutrophils # VBG pH Sodium 132 L Potassium 3.3 L Chloride Carbon Dioxide 21 L BUN Glucose 300 H POC Glucose 236 H 264 H Total Protein Albumin Urine WBC (Auto) 12/31/20 12/31/20 12/31/20 04:58 04:58 04:58 WBC 11.2 H RBC MCH 27 L RDW 13.1 L Lymph % (Auto) Lymph # (Auto) Seg Neutrophils % Seg Neutrophils # VBG pH Sodium Potassium 3.3 L 3.5 L Chloride Carbon Dioxide 21 L BUN Glucose 180 H 182 H POC Glucose Total Protein Albumin 3.4 L Urine WBC (Auto) 12/31/20 12/31/20 12/31/20 07:58 10:40 11:38 WBC RBC MCH RDW Lymph % (Auto) Lymph # (Auto) Seg Neutrophils % Seg Neutrophils # VBG pH Sodium 136 L Potassium 3.5 L Chloride Carbon Dioxide 21 L BUN Glucose 262 H POC Glucose 154 H 256 H Total Protein Albumin Urine WBC (Auto) 12/31/20 12/31/20 01/01/21 16:02 20:20 05:06 WBC RBC MCH RDW Lymph % (Auto) Lymph # (Auto) Seg Neutrophils % Seg Neutrophils # VBG pH Sodium 135 L Potassium 3.0 L Chloride Carbon Dioxide BUN 18 H Glucose 152 H POC Glucose 164 H 248 H Total Protein Albumin Urine WBC (Auto) 01/01/21 01/01/21 08:01 12:06 WBC RBC MCH RDW Lymph % (Auto) Lymph # (Auto) Seg Neutrophils % Seg Neutrophils # VBG pH Sodium Potassium Chloride Carbon Dioxide BUN Glucose POC Glucose 158 H 164 H Total Protein Albumin Urine WBC (Auto)
--- NOTE | 2021-01-02 10:13 | Electrocardiograph Report ---
[facility] Test Date: 2020-12-29 Test Time: 20:43:53 Pat Name: TOI RAMIREZ Department: Room: A467 Gender: F Communications Attendant: FRANKY : 1995 Requested By: REJI KING Order Number: [id number] Reading MD: Griselda Pak Measurements Intervals [place] Rate: 114 P: 50 SC: 133 QRS: 37 QRSD: 76 T: 41 QT: 356 QTc: 492 Interpretive Statements Sinus tachycardia Probable left atrial enlargement Compared to ECG 08/27/2020 11:47:58 No significant changes Electronically Signed On 01-02-2021 10:12:49 EDT by Griselda Pak
== END 2021-01-01 16:59 | disposition home or self-care (01) | DRG 638 ==
LOC: ED 20:31 → UNDOADMOB 12-30 01:11 → CC1 12-30 01:11 → 3A 12-30 01:11 → 4A 12-30 14:59 → OBSVTOIN 12-31 13:17
PROVIDERS: ADMIT Internal Medicine Geriatric Medicine; ATTEND Internal Medicine
DX: E11.10 Type 2 diabetes mellitus with ketoacidosis without coma (principal); I16.1 Hypertensive emergency; Z68.41 Body mass index [BMI] 40.0-44.9, adult; I10 Essential (primary) hypertension; E11.65 Type 2 diabetes mellitus with hyperglycemia; E86.0 Dehydration; E66.01 Morbid (severe) obesity due to excess calories; Z20.822 Contact with and (suspected) exposure to COVID-19
CPT/HCPCS: 36415; 70450; 71046; 74177; 80048; 80053; 80076; 81001; 82010; 82805; 82962; 83735; 84100; 84703; 85025; 85027; 93005; G0378; C9113; J0360; J0696; J1644; J1815; J2270; J2405; J2765; J7030; Q9967

== ENCOUNTER 2021-01-02 23:12 | Inpatient (IN) | payer SELFPAY ==
[2021-01-03] MEDS ORDERED: SODIUM CHLORIDE 0.9% 1000 ML 1,000 ML IV ONE ×2 (00:03→02:58)
--- NOTE | 2021-01-03 00:06 | Event Note ---
ED Screening Note Date of service: 01/03/21 Time: 00:04 ED Screening Note: 25-year-old female patient with history of uncontrolled diabetes and hypertension presents to the emergency department with complaints of abdominal pain, nausea, and vomiting worsening today. Patient was discharged from the hospital yesterday following ICU admission for DKA required insulin drip. Patient estimate she has had approximately 10 episodes of emesis today. Patient filled her prescriptions following discharge from the hospital but has been unable to keep the medications down. Tachycardic and hypertensive in triage. General: Awake, appropriately interactive. Actively vomiting. Neck: Supple. Full range of motion intact. Cardiovascular: Normal peripheral perfusion. Pulmonary: No respiratory distress. Patient is speaking normally without use of accessory muscles. Abdomen: Soft, nondistended. Diffuse upper abdominal tenderness. Skin: No apparent rashes or lesions. Neurological: No facial asymmetry. Speech is clear. Follows commands. Patient is alert and oriented. Musculoskeletal: Moves all four extremities spontaneously with normal range of motion. Psych: Cooperative. Appropriate mood and affect. I have greeted and performed a focused rapid initial assessment of this patient. A comprehensive ED assessment and evaluation of the patient, analysis of all test results, and completion of the medical decision-making process will be conducted by additional ED providers. This initial assessment/diagnostic orders/clinical plan/treatment(s) is/are subject to change based on patients health status, clinical progression and re-assessment. Further treatment and workup at subsequent clinical provider's discretion. Patient/guardian urged not to elope from the ED as their condition may be serious if not clinically assessed and managed.
[2021-01-03] MEDS: ONDANSETRON 4 MG/2 ML INJ IV ONE ×2 (01:16→03:52)
[2021-01-03 01:19] LABS: Bilirubin,Urine NEG (Negative); Blood,Urine NEG (Negative); Color,Urine Yellow (Yellow); Mucus,Urine FEW /HPF; Urobilinogen,Urine < 2.0 mg/dL (<2.0)
[2021-01-03] MEDS ORDERED: FAMOTIDINE 20 MG/2 ML INJ IV ONE (01:28)
[2021-01-03] MEDS ORDERED: DICYCLOMINE 20 MG/2 ML INJ IM ONE (01:28)
[2021-01-03 01:40] LABS: Hematocrit 41.3 % (30.3-42.9); Hemoglobin 12.8 gm/dl (10.1-14.3); Mean Corpuscular HGB Conc 31 % (30-34); Mean Corpuscular Volume 83 fl (79-97); Platelet Count 376 K/mm3 (140-440); Red Blood Count 4.98 M/mm3 (3.65-5.03)
[2021-01-03 01:44] LABS: Protein,Urine >500 mg/dL (Negative)
[2021-01-03 02:03] LABS: Alanine Aminotransferase 14 units/L (7-56); Albumin 4.1 g/dL (3.9-5); BUN/Creatinine Ratio 13; Blood Urea Nitrogen 12 mg/dL (7-17); Calcium 9.5 mg/dL (8.4-10.2); Hemolysis Index 0
[2021-01-03 02:54] LABS: Anisocytosis RARE; Hypochromasia 1+; Total Cells Counted 100
[2021-01-03] MEDS ORDERED: HYDROmorphone 1 MG/1 ML INJ IV ONE ×2 (02:58→04:49)
[2021-01-03] MEDS ORDERED: DEXTROSE 50% IN WATER (25GM) 50 ML SYRINGE IV PRN ×2 (02:58→05:45)
--- NOTE | 2021-01-03 02:58 | Emergency Department Report ---
ED General Adult HPI - General Chief complaint: Nausea/Vomiting/Diarrhea Stated complaint: VOMITING/SOB PUI?: No Time Seen by Provider: 01/03/21 02:35 Source: patient Mode of arrival: Ambulatory Limitations: No Limitations - History of Present Illness Initial comments: Patient is a 25-year-old female who presents emergency with complaints of abdominal pain, nausea, vomiting, generalized weakness. Patient states that her symptoms been well for 3 days. But states her symptoms worsen. Patient states she is vomited multiple times. Patient states she is unable to hold any of her medications or food down. Patient states she was recently in the hospital for DKA and discharged and was unable to take her medications. Patient states she picked up a pharmacy but not been able to hold them down. Patient states she is not taking her insulin because she is not eating. Patient denies chest pain. Patient denies shortness of breath. Patient denies blood in her vomitus. Patient states that her abdominal pain is a 3 out of 10. Patient denies recent travel. Patient denies recent international travel. Patient denies exposure to the novel coronavirus. Patient denies sick contacts. Patient denies fever and chills. Patient denies cough. Patient denies diarrhea. Patient denies coming in contact with anybody with symptoms of the novel coronavirus. -: Sudden Location: abdomen Severity scale (0 -10): 3 Consistency: constant Improves with: rest Worsens with: movement, other (Vomiting) Associated Symptoms: loss of appetite, malaise, nausea/vomiting, weakness. denies: confusion, chest pain, cough, diaphoresis, fever/chills, headaches, rash, seizure, shortness of breath, syncope Treatments Prior to Arrival: none - Related Data Previous Rx's Medication Instructions Recorded Last Taken Type Insulin NPH/Regular [NovoLIN 70/30] 25 unit SUB-Q BIDDIAB #1 units 12/31/20 Unknown Rx Pantoprazole [Protonix] 40 mg PO QDAY 30 Days #30 tablet 01/01/21 Unknown Rx amLODIPine 5 mg PO QDAY 30 Days #30 tablet 01/01/21 Unknown Rx lisinopriL [Zestril TAB] 40 mg PO QDAY 30 Days #30 tablet 01/01/21 Unknown Rx Allergies Allergy/AdvReac Type Severity Reaction Status Date / Time ketorolac [From Toradol] AdvReac Nausea Verified 12/30/20 14:36 tramadol AdvReac Vomiting Verified 12/30/20 14:36 ED Review of Systems ROS: Stated complaint: VOMITING/SOB Other details as noted in HPI Constitutional: malaise, weakness. denies: chills, fever Eyes: denies: eye pain, eye discharge, vision change ENT: denies: ear pain, throat pain Respiratory: denies: cough, shortness of breath, wheezing Cardiovascular: denies: chest pain, palpitations Endocrine: no symptoms reported Gastrointestinal: as per HPI, abdominal pain, nausea, vomiting. denies: diarrhea Genitourinary: denies: urgency, dysuria, discharge Musculoskeletal: denies: back pain, joint swelling, arthralgia Skin: denies: rash, lesions Neurological: weakness. denies: headache, paresthesias Psychiatric: denies: anxiety, depression Hematological/Lymphatic: denies: easy bleeding, easy bruising ED Past Medical Hx - Past Medical History Previous Medical History?: Yes Hx Hypertension: Yes Hx CVA: No Hx Heart Attack/AMI: No Hx Congestive Heart Failure: No Hx Diabetes: Yes Hx Deep Vein Thrombosis: No Hx Pulmonary Embolism: No Hx GERD: No Hx Liver Disease: No Hx Renal Disease: No Hx Sickle Cell Disease: No Hx Arthritis: No Hx Headaches / Migraines: No Hx Seizures: No Hx Kidney Stones: No Hx Psychiatric Treatment: No Hx Asthma: No Hx COPD: No Hx Tuberculosis: No Hx Dementia: No Hx HIV: No Additional medical history: Gastroparesis - Surgical History Past Surgical History?: No Hx Coronary Stent: No Hx Open Heart Surgery: No Hx Pacemaker: No Hx Internal Defibrillator: No Hx Cholecystectomy: No Hx Appendectomy: No Hx Breast Surgery: No - Family History Family history: no significant - Social History Smoking Status: Never Smoker Substance Use Type: None - Medications Home Medications: Home Medications Medication Instructions Recorded Confirmed Last Taken Type Insulin NPH/Regular [NovoLIN 70/30] 25 unit SUB-Q BIDDIAB #1 units 12/31/20 Unknown Rx Pantoprazole [Protonix] 40 mg PO QDAY 30 Days #30 tablet 01/01/21 Unknown Rx amLODIPine 5 mg PO QDAY 30 Days #30 tablet 01/01/21 Unknown Rx lisinopriL [Zestril TAB] 40 mg PO QDAY 30 Days #30 tablet 01/01/21 Unknown Rx ED Physical Exam - General Limitations: No Limitations General appearance: alert, in no apparent distress - Head Head exam: Present: atraumatic, normocephalic - Eye Eye exam: Present: normal appearance - ENT ENT exam: Present: mucous membranes dry - Neck Neck exam: Present: normal inspection - Respiratory Respiratory exam: Present: normal lung sounds bilaterally. Absent: respiratory distress, wheezes - Cardiovascular Cardiovascular Exam: Present: regular rate, normal rhythm. Absent: systolic murmur, diastolic murmur, rubs, gallop - GI/Abdominal GI/Abdominal exam: Present: soft, normal bowel sounds. Absent: distended, tenderness, guarding - Extremities Exam Extremities exam: Present: normal inspection - Back Exam Back exam: Present: normal inspection - Neurological Exam Neurological exam: Present: alert, oriented X3 - Psychiatric Psychiatric exam: Present: normal affect, normal mood - Skin Skin exam: Present: warm, dry, intact, normal color. Absent: rash ED Course Vital Signs 01/02/21 23:44 Temperature 97.8 F Pulse Rate 107 H Respiratory 18 Rate Blood Pressure 195/120 O2 Sat by Pulse 99 Oximetry - Reevaluation(s) Reevaluation #1: Initial evaluation done. Patient found to be in DKA. Patient fluids. Patient will have a DKA protocol ordered. Patient will be given insulin drip and fluids. Patient will be given Dilaudid and Zofran. 01/03/21 02:57 Reevaluation #2: I discussed all results with patient. I discussed plan of care with patient. Patient agrees with plan of care and admission. Patient to be admitted to the hospitalist service. 01/03/21 03:19 - Consultations Consultation #1: Hospitalist consulted for admission. Hospitalist to admit patient. 01/03/21 03:19 ED Medical Decision Making - Lab Data Result diagrams: 01/03/21 01:12 01/03/21 01:12 - Medical Decision Making Patient is a 25-year-old female that presents emergency room with complaints of abdominal pain, nausea vomiting weakness, fatigue. Patient had labs done which showed a low bicarbonate open anion gap. Patient's pain is exacerbated DKA. Patient recently in the hospital for DKA as well. Patient has ketones and sugar in her urine. Patient given fluids. Patient started on a DKA protocol to incl ude fluids and insulin drip. Patient also given Zofran and Dilaudid for her generalized pain and nausea. Patient given hydralazine for her severely elevated blood pressure. Patient not taking her blood pressure medications. Patient given potassium for low potassium. Patient will require admission. Patient admitted to the hospital service for further evaluation treatment. Patient admitted to the ICU. Critical care time documented due to the multiple reassessments, prolonged time at the bedside, interpretation of diagnostics and labs. - Differential Diagnosis DKA, hyperglycemia, HHS, Critical Care Time: Yes Critical care time in (mins) excluding proc time.: 35 Critical care attestation.: If time is entered above; I have spent that time in minutes in the direct care of this critically ill patient, excluding procedure time. Critical Care Time: 35 minutes ED Disposition Clinical Impression: Hyperglycemia, Metabolic acidosis, Dehydration, Gastroparesis, Hypokalemia, Uncontrolled hypertension DKA (diabetic ketoacidosis) Qualifiers: Diabetes mellitus type: type 1 Diabetes mellitus complication detail: without coma Qualified Code(s): E10.10 - Type 1 diabetes mellitus with ketoacidosis without coma Nausea & vomiting Qualifiers: Vomiting type: unspecified Vomiting Intractability: intractable Qualified Code(s): R11.2 - Nausea with vomiting, unspecified Abdominal pain Qualifiers: Abdominal location: generalized Qualified Code(s): R10.84 - Generalized abdominal pain Disposition: 09 ADMITTED INPATIENT Is pt being admited?: Yes Does the pt Need Aspirin: No Condition: Critical Instructions: Diabetic Ketoacidosis (ED), Hypertension (ED) Time of Disposition: 03:30
[2021-01-03] MEDS ORDERED: D5W/0.45% NACL/KCL 20 MEQ 20 MEQ/1,000 ML BAG IV SCH (03:00)
[2021-01-03] MEDS ORDERED: INSULIN REGULAR, HUMAN 100 UNITS in SODIUM CHLORIDE 0.9% 99 ML IV SCH ×2 (03:00→06:00)
[2021-01-03] MEDS ORDERED: hydrALAZINE 20 MG/1 ML INJ IV ONE (03:18)
[2021-01-03] MEDS ORDERED: ONDANSETRON 4 MG/2 ML INJ IV ONE (03:44)
[2021-01-03] MEDS: POTASSIUM CHLORIDE 10 MEQ 10 MEQ/100 ML BAG IV SCH ×4 (03:52→06:26)
[2021-01-03] MEDS ORDERED: METOCLOPRAMIDE 10 MG/2 ML INJ IV ONE (04:51)
[2021-01-03] MEDS ORDERED: ACETAMINOPHEN 325 MG TAB PO PRN (05:45)
[2021-01-03] MEDS ORDERED: ALBUTEROL 2.5 MG/3 ML NEBU IH PRN (05:45)
[2021-01-03] MEDS: HYDROmorphone 1 MG/1 ML INJ IV PRN ×5 (05:50→21:08)
--- NOTE | 2021-01-03 05:54 | History and Physical Report ---
History of Present Illness Date of examination: 01/03/21 Date of admission: 01/03/21 03:22 Chief complaint: Nausea vomiting diarrhea Hyperglycemia History of present illness: 25-year-old female with history of DKA, diabetes was brought to the emergency room because of abdominal pain, nausea, vomiting, generalized weakness for the past 3 days. P But states her symptoms worsen. Patient states she is vomited multiple times. Patient states she is unable to hold any of her medications or food down. Patient states she was recently in the hospital for DKA and di scharged and was unable to take her medications. Patient states she picked up a pharmacy but not been able to hold them down. Patient states she is not taking her insulin because she is not eating. In the emergency room patient is found to have DKA. Patient blood glucose is 296. Patient anion gap is 27 and bicarb 16 and potassium 3.1 Med rec is done Past History Past Medical History: diabetes Medications and Allergies Allergies Allergy/AdvReac Type Severity Reaction Status Date / Time ketorolac [From Toradol] AdvReac Nausea Verified 12/30/20 14:36 tramadol AdvReac Vomiting Verified 12/30/20 14:36 Home Medications Medication Instructions Recorded Confirmed Last Taken Type Insulin NPH/Regular [NovoLIN 70/30] 25 unit SUB-Q BIDDIAB #1 units 12/31/20 Unknown Rx Pantoprazole [Protonix] 40 mg PO QDAY 30 Days #30 tablet 01/01/21 Unknown Rx amLODIPine 5 mg PO QDAY 30 Days #30 tablet 01/01/21 Unknown Rx lisinopriL [Zestril TAB] 40 mg PO QDAY 30 Days #30 tablet 01/01/21 Unknown Rx Active Meds: Active Medications Dextrose (Dextrose 50% In Water (25gm) 50 Ml Syringe) 50 ml IV Q30MIN PRN; Protocol PRN Reason: Hypoglycemia Insulin Human Regular 100 (units/ Sodium Chloride) 100 mls @ 1 mls/hr IV TITR HEVER; Protocol Last Admin: 01/03/21 04:52 Dose: 5 units/hr, 5 mls/hr Documented by: Potassium Chloride/Dextrose/Sod Cl (D5w/0.45% Nacl/Kcl 20 Meq) 20 meq in 1,000 mls @ 125 mls/hr IV DIRECT HEVER Potassium Chloride (Kcl 10meq/100ml) 10 meq in 100 mls @ 100 mls/hr IV Q1H HEVER Stop: 01/03/21 06:59 Last Admin: 01/03/21 05:48 Dose: 100 mls/hr Documented by: Review of Systems All systems: negative Gastrointestinal: abdominal pain, nausea, vomiting, diarrhea Exam - Constitutional Vitals: Temp Pulse Resp BP Pulse Ox 99.4 F 124 H 20 187/107 98 01/03/21 03:15 01/03/21 04:31 01/03/21 05:22 01/03/21 04:31 01/03/21 05:22 General appearance: Present: no acute distress, well-nourished - EENT Eyes: Present: PERRL ENT: hearing intact, clear oral mucosa - Neck Neck: Present: supple, normal ROM - Respiratory Respiratory effort: normal Respiratory: bilateral: diminished - Cardiovascular Heart Sounds: Present: S1 & S2. Absent: rub, click - Extremities Extremities: pulses symmetrical, No edema Peripheral Pulses: within normal limits - Abdominal General gastrointestinal: Present: soft, non-tender, non-distended, normal bowel sounds Female genitourinary: Present: normal - Integumentary Integumentary: Present: clear, warm, dry - Musculoskeletal Musculoskeletal: gait normal, strength equal bilaterally - Psychiatric Psychiatric: appropriate mood/affect, intact judgment & insight - Neurologic Neurologic: CNII-XII intact, moves all extremities Results - Labs CBC & Chem 7: 01/03/21 01:12 01/03/21 01:12 Labs: Laboratory Last Values WBC 15.3 K/mm3 (4.5-11.0) H 01/03/21 01:12 RBC 4.98 M/mm3 (3.65-5.03) 01/03/21 01:12 Hgb 12.8 gm/dl (10.1-14.3) 01/03/21 01:12 Hct 41.3 % (30.3-42.9) 01/03/21 01:12 MCV 83 fl (79-97) 01/03/21 01:12 MCH 26 pg (28-32) L 01/03/21 01:12 MCHC 31 % (30-34) 01/03/21 01:12 RDW 13.0 % (13.2-15.2) L 01/03/21 01:12 Plt Count 376 K/mm3 (140-440) 01/03/21 01:12 Add Manual Diff Complete 01/03/21 01:12 Total Counted 100 01/03/21 01:12 Seg Neutrophils % Sander Hand 01/03/21 01:12 Seg Neuts % (Manual) 90.0 % (40.0-70.0) H 01/03/21 01:12 Lymphocytes % (Manual) 7.0 % (13.4-35.0) L 01/03/21 01:12 Monocytes % (Manual) 3.0 % (0.0-7.3) 01/03/21 01:12 Nucleated RBC % Not Reportable 01/03/21 01:12 Seg Neutrophils # Man 13.8 K/mm3 (1.8-7.7) H 01/03/21 01:12 Band Neutrophils # 0.0 K/mm3 01/03/21 01:12 Lymphocytes # (Manual) 1.1 K/mm3 (1.2-5.4) L 01/03/21 01:12 Abs React Lymphs (Man) 0.0 K/mm3 01/03/21 01:12 Monocytes # (Manual) 0.5 K/mm3 (0.0-0.8) 01/03/21 01:12 Eosinophils # (Manual) 0.0 K/mm3 (0.0-0.4) 01/03/21 01:12 Basophils # (Manual) 0.0 K/mm3 (0.0-0.1) 01/03/21 01:12 Metamyelocytes # 0.0 K/mm3 01/03/21 01:12 Myelocytes # 0.0 K/mm3 01/03/21 01:12 Promyelocytes # 0.0 K/mm3 01/03/21 01:12 Blast Cells # 0.0 K/mm3 01/03/21 01:12 WBC Morphology Not Reportable 01/03/21 01:12 Hypersegmented Neuts Not Reportable 01/03/21 01:12 Hyposegmented Neuts Not Reportable 01/03/21 01:12 Hypogranular Neuts Not Reportable 01/03/21 01:12 Smudge Cells Not Reportable 01/03/21 01:12 Toxic Granulation Not Reportable 01/03/21 01:12 Toxic Vacuolation Not Reportable 01/03/21 01:12 Dohle Bodies Not Reportable 01/03/21 01:12 Pelger-Huet Anomaly Not Reportable 01/03/21 01:12 Donald Rods Not Reportable 01/03/21 01:12 Platelet Estimate Not Reportable 01/03/21 01:12 Clumped Platelets Not Reportable 01/03/21 01:12 Plt Clumps, EDTA Not Reportable 01/03/21 01:12 Large Platelets Not Reportable 01/03/21 01:12 Giant Platelets Not Reportable 01/03/21 01:12 Platelet Satelliting Not Reportable 01/03/21 01:12 Plt Morphology Comment Not Reportable 01/03/21 01:12 RBC Morphology Not Reportable 01/03/21 01:12 Dimorphic RBCs Not Reportable 01/03/21 01:12 Polychromasia Not Reportable 01/03/21 01:12 Hypochromasia 1+ 01/03/21 01:12 Poikilocytosis Not Reportable 01/03/21 01:12 Anisocytosis Rare 01/03/21 01:12 Microcytosis Not Reportable 01/03/21 01:12 Macrocytosis Not Reportable 01/03/21 01:12 Spherocytes Not Reportable 01/03/21 01:12 Pappenheimer Bodies Not Reportable 01/03/21 01:12 Sickle Cells Not Reportable 01/03/21 01:12 Target Cells Not Reportable 01/03/21 01:12 Tear Drop Cells Not Reportable 01/03/21 01:12 Ovalocytes Not Reportable 01/03/21 01:12 Helmet Cells Not Reportable 01/03/21 01:12 [place] Bodies Not Reportable 01/03/21 01:12 [place] Rings Not Reportable 01/03/21 01:12 Yulia Cells Not Reportable 01/03/21 01:12 Bite Cells Not Reportable 01/03/21 01:12 Crenated Cell Not Reportable 01/03/21 01:12 Elliptocytes Not Reportable 01/03/21 01:12 Acanthocytes (Spur) Not Reportable 01/03/21 01:12 Rouleaux Not Reportable 01/03/21 01:12 Hemoglobin C Crystals Not Reportable 01/03/21 01:12 Schistocytes Not Reportable 01/03/21 01:12 Malaria parasites Not Reportable 01/03/21 01:12 Jim Bodies Not Reportable 01/03/21 01:12 Hem Pathologist Commnt No 01/03/21 01:12 VBG pH 7.403 (7.320-7.420) 01/03/21 01:12 Sodium 139 mmol/L (137-145) 01/03/21 01:12 Potassium 3.1 mmol/L (3.6-5.0) L 01/03/21 01:12 Chloride 99.0 mmol/L (98-107) 01/03/21 01:12 Carbon Dioxide 16 mmol/L (22-30) L 01/03/21 01:12 Anion Gap 27 mmol/L 01/03/21 01:12 BUN 12 mg/dL (7-17) 01/03/21 01:12 Creatinine 0.9 mg/dL (0.6-1.2) 01/03/21 01:12 Estimated GFR > 60 ml/min 01/03/21 01:12 BUN/Creatinine Ratio 13 % 01/03/21 01:12 Glucose 296 mg/dL (65-100) H 01/03/21 01:12 POC Glucose 259 mg/dL (70-105) H 01/03/21 04:24 Calcium 9.5 mg/dL (8.4-10.2) 01/03/21 01:12 Magnesium 1.60 mg/dL (1.7-2.3) L 01/03/21 01:12 Total Bilirubin 1.30 mg/dL (0.1-1.2) H 01/03/21 01:12 AST 14 units/L (5-40) 01/03/21 01:12 ALT 14 units/L (7-56) 01/03/21 01:12 Alkaline Phosphatase 90 units/L (35-129) 01/03/21 01:12 Total Protein 8.5 g/dL (6.3-8.2) H D 01/03/21 01:12 Albumin 4.1 g/dL (3.9-5) 01/03/21 01:12 Albumin/Globulin Ratio 0.9 % 01/03/21 01:12 Lipase 21 units/L (13-60) 01/03/21 01:12 HCG, Qual Negative (Negative) 01/03/21 01:12 Urine Color Yellow (Yellow) 01/03/21 Unknown Urine Turbidity Clear (Clear) 01/03/21 Unknown Urine pH 6.0 (5.0-7.0) 01/03/21 Unknown Ur Specific [place] 1.021 (1.003-1.030) 01/03/21 Unknown Urine Protein >500 mg/dL (Negative) 01/03/21 Unknown Urine Glucose (UA) >=500 mg/dL (Negative) 01/03/21 Unknown Urine Ketones 80 mg/dL (Negative) 01/03/21 Unknown Urine Blood Neg (Negative) 01/03/21 Unknown Urine Nitrite Neg (Negative) 01/03/21 Unknown Urine Bilirubin Neg (Negative) 01/03/21 Unknown Urine Urobilinogen < 2.0 mg/dL (<2.0) 01/03/21 Unknown Ur Leukocyte Esterase Neg (Negative) 01/03/21 Unknown Urine WBC (Auto) 2.0 /HPF (0.0-6.0) 01/03/21 Unknown Urine RBC (Auto) 2.0 /HPF (0.0-6.0) 01/03/21 Unknown U Epithel Cells (Auto) 2.0 /HPF (0-13.0) 01/03/21 Unknown Urine Mucus Few /HPF 01/03/21 Unknown Assessment and Plan VTE prophylaxis?: Chemical Plan of care discussed with patient/family: Yes - Patient Problems (1) Diabetic keto-acidosis Current Visit: Yes Status: Acute Qualifiers: Diabetes mellitus type: type 1 Diabetes mellitus complication detail: without coma Qualified Code(s): E10.10 - Type 1 diabetes mellitus with ketoacidosis without coma Plan to address problem: Admit the patient to the medical ICU. Put the patient on insulin drip. IV fluid as per DKA protocol. We will do the serial BMP. We will continue the home medication will consult diabetic education. We also consult critical care evaluation (2) Hypokalemia Current Visit: Yes Status: Acute Plan to address problem: Potassium is supplemented. Recheck BMP in the morning (3) Metabolic acidosis Current Visit: Yes Status: Acute Plan to address problem: Most likely secondary to DKA. We will put the patient insulin drip as per protocol. IV fluid as per protocol. Recheck CBC BMP in the morning (4) Nausea & vomiting Current Visit: Yes Status: Acute Qualifiers: Vomiting type: unspecified Vomiting Intractability: intractable Qualified Code(s): R11.2 - Nausea with vomiting, unspecified Plan to address problem: Pepcid 20 mg IV every 12 hours. Zofran 4 mg IV every 6 hours as needed. We will monitor the patient closely (5) Leukocytosis Current Visit: Yes Status: Acute Plan to address problem: Rocephin 2 g IV daily. Recheck the CBC in the morning (6) DVT prophylaxis Current Visit: No Status: Acute Plan to address problem: Heparin 5000 units subcu every 8 hours for DVT prophylaxis. Pepcid 20 mg IV every 12 hours for GI prophylaxis. Patient is a full code
[2021-01-03 05:59] LABS: Calcium 8.7 mg/dL (8.4-10.2)
[2021-01-03 06:33] LABS: BUN/Creatinine Ratio 15; Blood Urea Nitrogen 12 mg/dL (7-17); Hemolysis Index 17
[2021-01-03] MEDS: ONDANSETRON 4 MG/2 ML INJ IV PRN ×2 (07:40→12:14)
[2021-01-03] MEDS ORDERED: LACTATED RINGERS 1,000 ML IV ONE (08:00)
[2021-01-03] MEDS ORDERED: hydrALAZINE 20 MG/1 ML INJ IV PRN (08:00)
[2021-01-03] MEDS ORDERED: MAGNESIUM SULFATE 4 GM/100 ML BAG IV ONE (08:30)
[2021-01-03] MEDS ORDERED: SODIUM PHOSPHATE 15 MMOL in SODIUM CHLORIDE 0.9% 250ML 150 ML IV ONE (08:30)
[2021-01-03] MEDS: HEPARIN 5,000 UNIT/1 ML VIAL SUB-Q SCH ×3 (09:36→23:24)
[2021-01-03] MEDS: IPRATROPIUM/ALBUTEROL SULFATE 3 ML AMPUL.NEB IH SCH ×2 (09:38→14:43)
[2021-01-03] MEDS: cefTRIAXone/NS 2 GM/100 ML 2 GM/100 ML BAG IV SCH (09:39)
[2021-01-03] MEDS ORDERED: FAMOTIDINE 20 MG/2 ML INJ IV SCH (10:00)
[2021-01-03 10:13] LABS: Basophils # (Auto) 0.1 K/mm3 (0.0-0.1); Eosinophils % (Auto) 0.1 % (0.0-4.3); Monocytes # (Auto) 0.2 K/mm3 (0.0-0.8); Monocytes % (Auto) 1.3 % (0.0-7.3)
[2021-01-03 10:32] LABS: BUN/Creatinine Ratio 15; Blood Urea Nitrogen 12 mg/dL (7-17); Calcium 9.3 mg/dL (8.4-10.2); Hemolysis Index 13
[2021-01-03 10:33] LABS: BUN/Creatinine Ratio 15; Blood Urea Nitrogen 12 mg/dL (7-17); Calcium 9.1 mg/dL (8.4-10.2); Hemolysis Index 23
[2021-01-03] MEDS: PANTOPRAZOLE 40 MG TAB PO SCH (10:40)
[2021-01-03] MEDS: amLODIPine 5 MG TAB PO SCH (10:40)
[2021-01-03] MEDS: LISINOPRIL 40 MG TAB PO SCH ×2 (11:10→12:18)
[2021-01-03 15:00] LABS: BUN/Creatinine Ratio 13; Blood Urea Nitrogen 12 mg/dL (7-17); Calcium 8.7 mg/dL (8.4-10.2); Hemolysis Index 8
--- NOTE | 2021-01-03 15:04 | Progress Note ---
Assessment and Plan Assessment and plan: Hospital course: 01/03: We will continue to trend gap on serial BMP, continue insulin drip until gap closure. Reglan as needed for nausea. Patient to remain n.p.o. (1) Diabetic keto-acidosis Current Visit: Yes Status: Acute Qualifiers: Diabetes mellitus type: type 1 Diabetes mellitus complication detail: without coma Qualified Code(s): E10.10 - Type 1 diabetes mellitus with ketoacidosis without coma Plan to address problem: Admit the patient to the medical ICU. IV fluid as per DKA protocol. We will do the serial BMP. We also consult critical care evaluation History of noncompliance. Would benefit from diabetic education and counseling Patient states that her sugars were still 250 at home. Continue insulin drip at this time. (2) Hypokalemia Current Visit: Yes Status: Acute Plan to address problem: Potassium is supplemented. Recheck BMP in the morning (3) Metabolic acidosis Current Visit: Yes Status: Acute Plan to address problem: Most likely secondary to DKA. We will put the patient insulin drip as per protocol. IV fluid as per protocol. Recheck CBC BMP in the morning (4) Nausea & vomiting Current Visit: Yes Status: Acute Qualifiers: Vomiting type: unspecified Vomiting Intractability: intractable Qualified Code(s): R11.2 - Nausea with vomiting, unspecified Plan to address problem: Pepcid 20 mg IV every 12 hours. Zofran 4 mg IV every 6 hours as needed. We will monitor the patient closely (5) Leukocytosis Current Visit: Yes Status: Acute Plan to address problem: Rocephin 2 g IV daily. Recheck the CBC in the morning (6) DVT prophylaxis Current Visit: No Status: Acute Plan to address problem: Heparin 5000 units subcu every 8 hours for DVT prophylaxis. Pepcid 20 mg IV every 12 hours for GI prophylaxis. Patient is a full code History Interval history: No acute complaints. Resting comfortably on encounter. Patient states that she remained nauseous after being discharged several days ago. She states that she did feel all of her medication and was taking her NPH 7030 35 units twice daily. However she does states that her blood sugars were around 250. Hospitalist Physical - Physical exam Narrative exam: Physical Exam: VITAL SIGNS: Reviewed. GENERAL: The patient appears normally developed, Vital signs as documented. HEAD: No signs of head trauma. EYES: Pupils are equal. Extraocular motions intact. EARS: Hearing grossly intact. MOUTH: Oropharynx is normal. NECK: No adenopathy, no JVD. CHEST: Chest with clear breath sounds bilaterally. No wheezes, rales, or rhonchi. CARDIAC: Regular rate and rhythm. S1 and S2, without murmurs, gallops, or rubs. VASCULAR: No Edema. Peripheral pulses normal and equal in all extremities. ABDOMEN: Soft, non tender and non distended. No rebound or guarding, and no masses palpated. Bowel Sounds normal. MUSCULOSKELETAL: Good range of motion of all major joints. Extremities without clubbing, cyanosis or edema. NEUROLOGIC EXAM: Alert oriented x4. No focal sensory or strength deficits. PSYCHIATRIC: Mood normal. SKIN: detail exam as documented in skin assessment - Constitutional Vitals: Temp Pulse Resp BP Pulse Ox 99.4 F 131 H 25 H 150/77 100 01/03/21 03:15 01/03/21 10:01 01/03/21 10:01 01/03/21 10:01 01/03/21 10:01 General appearance: Present: no acute distress, well-nourished Results - Labs CBC & Chem 7: 01/03/21 01:12 01/03/21 09:30 Labs: Laboratory Last Values WBC 15.3 K/mm3 (4.5-11.0) H 01/03/21 01:12 RBC 4.98 M/mm3 (3.65-5.03) 01/03/21 01:12 Hgb 12.8 gm/dl (10.1-14.3) 01/03/21 01:12 Hct 41.3 % (30.3-42.9) 01/03/21 01:12 MCV 83 fl (79-97) 01/03/21 01:12 MCH 26 pg (28-32) L 01/03/21 01:12 MCHC 31 % (30-34) 01/03/21 01:12 RDW 13.0 % (13.2-15.2) L 01/03/21 01:12 Plt Count 376 K/mm3 (140-440) 01/03/21 01:12 [place] % (Auto) 1.3 % (0.0-7.3) 01/03/21 01:12 Eos % (Auto) 0.1 % (0.0-4.3) 01/03/21 01:12 [place] # (Auto) 0.2 K/mm3 (0.0-0.8) 01/03/21 01:12 Eos # (Auto) 0.0 K/mm3 (0.0-0.4) 01/03/21 01:12 Baso # (Auto) 0.1 K/mm3 (0.0-0.1) 01/03/21 01:12 Add Manual Diff Complete 01/03/21 01:12 Total Counted 100 01/03/21 01:12 Seg 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 01/03/21 01:12 Seg Neuts % (Manual) 90.0 % (40.0-70.0) H 01/03/21 01:12 Lymphocytes % (Manual) 7.0 % (13.4-35.0) L 01/03/21 01:12 Monocytes % (Manual) 3.0 % (0.0-7.3) 01/03/21 01:12 Nucleated RBC % Not Reportable 01/03/21 01:12 Seg Neutrophils # 14.9 K/mm3 (1.8-7.7) H 01/03/21 01:12 Seg Neutrophils # Man 13.8 K/mm3 (1.8-7.7) H 01/03/21 01:12 Band Neutrophils # 0.0 K/mm3 01/03/21 01:12 Lymphocytes # (Manual) 1.1 K/mm3 (1.2-5.4) L 01/03/21 01:12 Abs React Lymphs (Man) 0.0 K/mm3 01/03/21 01:12 Monocytes # (Manual) 0.5 K/mm3 (0.0-0.8) 01/03/21 01:12 Eosinophils # (Manual) 0.0 K/mm3 (0.0-0.4) 01/03/21 01:12 Basophils # (Manual) 0.0 K/mm3 (0.0-0.1) 01/03/21 01:12 Metamyelocytes # 0.0 K/mm3 01/03/21 01:12 Myelocytes # 0.0 K/mm3 01/03/21 01:12 Promyelocytes # 0.0 K/mm3 01/03/21 01:12 Blast Cells # 0.0 K/mm3 01/03/21 01:12 WBC Morphology Not Reportable 01/03/21 01:12 Hypersegmented Neuts Not Reportable 01/03/21 01:12 Hyposegmented Neuts Not Reportable 01/03/21 01:12 Hypogranular Neuts Not Reportable 01/03/21 01:12 Smudge Cells Not Reportable 01/03/21 01:12 Toxic Granulation Not Reportable 01/03/21 01:12 Toxic Vacuolation Not Reportable 01/03/21 01:12 Dohle Bodies Not Reportable 01/03/21 01:12 Pelger-Huet Anomaly Not Reportable 01/03/21 01:12 Donald Rods Not Reportable 01/03/21 01:12 Platelet Estimate Not Reportable 01/03/21 01:12 Clumped Platelets Not Reportable 01/03/21 01:12 Plt Clumps, EDTA Not Reportable 01/03/21 01:12 Large Platelets Not Reportable 01/03/21 01:12 Giant Platelets Not Reportable 01/03/21 01:12 Platelet Satelliting Not Reportable 01/03/21 01:12 Plt Morphology Comment Not Reportable 01/03/21 01:12 RBC Morphology Not Reportable 01/03/21 01:12 Dimorphic RBCs Not Reportable 01/03/21 01:12 Polychromasia Not Reportable 01/03/21 01:12 Hypochromasia 1+ 01/03/21 01:12 Poikilocytosis Not Reportable 01/03/21 01:12 Anisocytosis Rare 01/03/21 01:12 Microcytosis Not Reportable 01/03/21 01:12 Macrocytosis Not Reportable 01/03/21 01:12 Spherocytes Not Reportable 01/03/21 01:12 Pappenheimer Bodies Not Reportable 01/03/21 01:12 Sickle Cells Not Reportable 01/03/21 01:12 Target Cells Not Reportable 01/03/21 01:12 Tear Drop Cells Not Reportable 01/03/21 01:12 Ovalocytes Not Reportable 01/03/21 01:12 Helmet Cells Not Reportable 01/03/21 01:12 [place] Bodies Not Reportable 01/03/21 01:12 Diamond Rings Not Reportable 01/03/21 01:12 Yulia Cells Not Reportable 01/03/21 01:12 Bite Cells Not Reportable 01/03/21 01:12 Crenated Cell Not Reportable 01/03/21 01:12 Elliptocytes Not Reportable 01/03/21 01:12 Acanthocytes (Spur) Not Reportable 01/03/21 01:12 Rouleaux Not Reportable 01/03/21 01:12 Hemoglobin C Crystals Not Reportable 01/03/21 01:12 Schistocytes Not Reportable 01/03/21 01:12 Malaria parasites Not Reportable 01/03/21 01:12 Jim Bodies Not Reportable 01/03/21 01:12 Hem Pathologist Commnt No 01/03/21 01:12 VBG pH 7.403 (7.320-7.420) 01/03/21 01:12 Sodium 141 mmol/L (137-145) 01/03/21 09:30 Sodium 142 mmol/L (137-145) 01/03/21 09:30 Potassium 3.5 mmol/L (3.6-5.0) L 01/03/21 09:30 Potassium 3.6 mmol/L (3.6-5.0) 01/03/21 09:30 Chloride 104.4 mmol/L (98-107) 01/03/21 09:30 Chloride 105.7 mmol/L (98-107) 01/03/21 09:30 Carbon Dioxide 18 mmol/L (22-30) L 01/03/21 09:30 Carbon Dioxide 18 mmol/L (22-30) L 01/03/21 09:30 Anion Gap 22 mmol/L 01/03/21 09:30 Anion Gap 22 mmol/L 01/03/21 09:30 BUN 12 mg/dL (7-17) 01/03/21 09:30 BUN 12 mg/dL (7-17) 01/03/21 09:30 Creatinine 0.8 mg/dL (0.6-1.2) 01/03/21 09:30 Creatinine 0.8 mg/dL (0.6-1.2) 01/03/21 09:30 Estimated GFR > 60 ml/min 01/03/21 13:41 BUN/Creatinine Ratio 13 % 01/03/21 13:41 Glucose 177 mg/dL (65-100) H 01/03/21 09:30 Glucose 180 mg/dL (65-100) H 01/03/21 09:30 POC Glucose 166 mg/dL (70-105) H 01/03/21 14:21 Calcium 9.1 mg/dL (8.4-10.2) 01/03/21 09:30 Calcium 9.3 mg/dL (8.4-10.2) 01/03/21 09:30 Phosphorus 2.80 mg/dL (2.5-4.5) 01/03/21 09:30 Magnesium 1.70 mg/dL (1.7-2.3) 01/03/21 09:30 Total Bilirubin 1.30 mg/dL (0.1-1.2) H 01/03/21 01:12 AST 14 units/L (5-40) 01/03/21 01:12 ALT 14 units/L (7-56) 01/03/21 01:12 Alkaline Phosphatase 90 units/L (35-129) 01/03/21 01:12 Total Protein 8.5 g/dL (6.3-8.2) H D 01/03/21 01:12 Albumin 4.1 g/dL (3.9-5) 01/03/21 01:12 Albumin/Globulin Ratio 0.9 % 01/03/21 01:12 Lipase 21 units/L (13-60) 01/03/21 01:12 HCG, Qual Negative (Negative) 01/03/21 01:12 Urine Color Yellow (Yellow) 01/03/21 Unknown Urine Turbidity Clear (Clear) 01/03/21 Unknown Urine pH 6.0 (5.0-7.0) 01/03/21 Unknown Ur Specific [place] 1.021 (1.003-1.030) 01/03/21 Unknown Urine Protein >500 mg/dL (Negative) 01/03/21 Unknown Urine Glucose (UA) >=500 mg/dL (Negative) 01/03/21 Unknown Urine Ketones 80 mg/dL (Negative) 01/03/21 Unknown Urine Blood Neg (Negative) 01/03/21 Unknown Urine Nitrite Neg (Negative) 01/03/21 Unknown Urine Bilirubin Neg (Negative) 01/03/21 Unknown Urine Urobilinogen < 2.0 mg/dL (<2.0) 01/03/21 Unknown Ur Leukocyte Esterase Neg (Negative) 01/03/21 Unknown Urine WBC (Auto) 2.0 /HPF (0.0-6.0) 01/03/21 Unknown Urine RBC (Auto) 2.0 /HPF (0.0-6.0) 01/03/21 Unknown U Epithel Cells (Auto) 2.0 /HPF (0-13.0) 01/03/21 Unknown Urine Mucus Few /HPF 01/03/21 Unknown Active Medications - Current Medications Current Medications: Generic Name Dose Route Start Last Admin Trade Name Freq PRN Reason Stop Dose Admin Acetaminophen 650 mg 01/03/21 05:45 Acetaminophen 325 Mg Tab PO Q4H PRN Pain MILD(1-3)/Fever >100.5/OCAMPO Albuterol 2.5 mg 01/03/21 05:45 Albuterol 2.5 Mg/3 Ml Nebu IH Q4HRT PRN Shortness Of Breath Albuterol/Ipratropium 1 ampul 01/03/21 08:00 01/03/21 14:43 Ipratropium/Albuterol Sulfate 3 Ml Ampul.Neb IH Not Given Q6HRT HEVER Amlodipine Besylate 5 mg 01/03/21 10:00 01/03/21 10:40 Amlodipine 5 Mg Tab PO 5 mg QDAY HEVER Administration Dextrose 0 ml 01/03/21 05:45 Dextrose 50% In Water (25gm) 50 Ml Syringe IV Q30MIN PRN Hypoglycemia Protocol Heparin Sodium (Porcine) 5,000 unit 01/03/21 06:00 01/03/21 14:28 Heparin 5,000 Unit/1 Ml Vial SUB-Q Not Given Q8HR HEVER Hydralazine HCl 10 mg 01/03/21 08:00 01/03/21 09:39 Hydralazine 20 Mg/1 Ml Inj IV 10 mg Q4H PRN Administration Hypertension Hydromorphone HCl 0.5 mg 01/03/21 05:45 01/03/21 12:18 Hydromorphone 1 Mg/1 Ml Inj IV 0.5 mg Q3H PRN Administration Pain , Severe (7-10) Insulin Human Regular 100 100 mls @ 1 mls/hr 01/03/21 03:00 01/03/21 12:32 units/ Sodium Chloride IV 2 units/hr TITR HEVER 2 mls/hr Titration Protocol 1 UNITS/HR Potassium Chloride/Dextrose/Sod Cl 20 meq in 1,000 mls @ 125 mls/hr 01/03/21 0 3:00 01/03/21 10:00 D5w/0.45% Nacl/Kcl 20 Meq IV 125 mls/hr DIRECT HEVER Administration Ceftriaxone Sodium 2 gm in 100 mls @ 200 mls/hr 01/03/21 06:00 01/03/21 09:39 Rocephin/Ns 2 Gm/100 Ml IV 200 mls/hr Q24H HEVER Administration Protocol Lisinopril 40 mg 01/03/21 10:00 01/03/21 12:18 Lisinopril 40 Mg Tab PO 40 mg QDAY HEVER Administration Ondansetron HCl 4 mg 01/03/21 05:45 01/03/21 12:14 Ondansetron 4 Mg/2 Ml Inj IV 4 mg Q8H PRN Administration Nausea And Vomiting Oxycodone/Acetaminophen 1 tab 01/03/21 05:45 Oxycodone /Acetaminophen 5-325mg Tab PO Q6H PRN Pain, Moderate (4-6) Pantoprazole Sodium 40 mg 01/03/21 10:00 01/03/21 10:40 Pantoprazole 40 Mg Tab PO 40 mg QDAY HEVER Administration Sodium Chloride 10 ml 01/03/21 10:00 01/03/21 10:40 Sodium Chloride 0.9% 10 Ml Flush Syringe IV 10 ml BID HEVER Administration Sodium Chloride 10 ml 01/03/21 05:45 Sodium Chloride 0.9% 10 Ml Flush Syringe IV PRN PRN LINE FLUSH Nutrition/Malnutrition Assess - Dietary Evaluation Nutrition/Malnutrition Findings: Nutrition Notes Start: 01/03/21 1 0:36 Freq: Status: Active Protocol: Document 01/03/21 10:36 GB (Rec: 01/03/21 10:46 GB [id number]) Nutrition Notes Need for Assessment generated from: MD Order,Education Initial or Follow up Assessment Other Pertinent Diagnosis Hyper-emesis. PMHx: DM, HTN, DKA Current Diet NPO (0.5 days) Labs/Tests 01/03: glucose 296, K 3.1, Mg 1.6 Pertinent Medications D5(PRN), KCl/D5/NaCl @ 125ml/ hr (510kcal), KCl Height 5 ft 3 in Weight 90.718 kg [place] Body Weight (kg) 52.27 BMI 35.4 Intake Prior to Admission Poor Weight change and time frame No reported weight changes at admission Weight Status Obese Subjective/Other Information Per MD notes 01/03: Past DKA treatment, pt unable to keep meds down r/t hyper-emesis. No mention if gestational DM: atypical vs normal r/t abdominal pain/hyper-emesis/ age MD consult for nutrition education: education to be provided when pt moves to floor, currently not a candidate for education. Percent of energy/protein needs met: 0% - currently NPO (0.5 days) Burn Absent Trauma Absent GI Symptoms Nausea,Vomiting,Other Food Allergy No Skin Integrity/Comment No complications reported Current % PO Poor (25-49%) Minimum of two criteria No #1 Nutrition Diagnosis Inadequate energy intake,Food and nutrition-related knowledge deficit Etiology hyper-emesis As Evidenced by Signs and Symptoms DKA, elevated Bglucose labs MD consult for nutrition education Is patient on ventilator? No Is Patient Ambulatory and/or Out of Bed Yes [facility] [ 2094.703 [id number]] Kcal/Kg value to use for calculation 18 Approximate Energy Requirements Using 1633 kcal/Kg Calculation Used for Recommendations Kcal/kg Additional Notes Protein: 0.8-1 g/kg @ 91k -91g Fluids: 1ml/kcal or per MD Nutrition Intervention Change Diet Order: Advance to Consistent carbohydrate when medically feasible Nutrition Support: n/a Add Supplement/Snack (indicate name/kcal n/a /protein ) Teaching Recipient Patient Teaching Methods Handout Education Handouts Provided AND: General Nutrition edcuation packet with DM targetted meal tips. Goal #1 Education packet to be reviewed and provided at f/u. Goal #2 Diet advanced to consistent carbohydrate by f/u Goal #3 PO intake of meals to be 50% or greater daily by f/u Follow-Up By: 01/07/21 Additional Comments f/u: provided General healthy Nutrition handout w/DM tips, diet advancement/PO
[2021-01-03] MEDS: oxyCODONE /ACETAMINOPHEN 5-325MG TAB PO PRN ×2 (17:03→23:23)
[2021-01-03 19:33] LABS: BUN/Creatinine Ratio 12; Blood Urea Nitrogen 11 mg/dL (7-17); Calcium 8.4 mg/dL (8.4-10.2); Hemolysis Index 6
[2021-01-03 22:08] LABS: BUN/Creatinine Ratio 11; Blood Urea Nitrogen 10 mg/dL (7-17); Calcium 8.4 mg/dL (8.4-10.2); Hemolysis Index 23
[2021-01-04] MEDS: INSULIN REGULAR, HUMAN 100 UNITS/1 ML SUB-Q SCH ×4 (00:38→18:40)
[2021-01-04] MEDS: HYDROmorphone 1 MG/1 ML INJ IV PRN ×3 (02:55→21:48)
[2021-01-04] MEDS: IPRATROPIUM/ALBUTEROL SULFATE 3 ML AMPUL.NEB IH SCH ×2 (03:49→08:27)
[2021-01-04 04:51] LABS: Basophils % (Auto) 0.2 % (0.0-1.8); Eosinophils # (Auto) 0.1 K/mm3 (0.0-0.4); Eosinophils % (Auto) 0.8 % (0.0-4.3); Hematocrit 34.5 % (30.3-42.9); Lymphocytes # (Auto) 2.7 K/mm3 (1.2-5.4); Lymphocytes % (Auto) 20.5 % (13.4-35.0); Mean Corpuscular HGB Conc 32 % (30-34); Mean Corpuscular Volume 84 fl (79-97); Monocytes # (Auto) 0.9 K/mm3 (0.0-0.8); Monocytes % (Auto) 6.7 % (0.0-7.3); Platelet Count 335 K/mm3 (140-440); Red Blood Count 4.09 M/mm3 (3.65-5.03); Red Cell Distribution Width 13.3 % (13.2-15.2)
[2021-01-04 05:14] LABS: BUN/Creatinine Ratio 9; Blood Urea Nitrogen 9 mg/dL (7-17); Calcium 8.9 mg/dL (8.4-10.2); Hemolysis Index 5
[2021-01-04] MEDS: oxyCODONE /ACETAMINOPHEN 5-325MG TAB PO PRN (05:50)
[2021-01-04] MEDS: cefTRIAXone/NS 2 GM/100 ML 2 GM/100 ML BAG IV SCH (06:45)
[2021-01-04] MEDS: HEPARIN 5,000 UNIT/1 ML VIAL SUB-Q SCH ×3 (06:45→21:45)
[2021-01-04] MEDS ORDERED: METOCLOPRAMIDE 10 MG/2 ML INJ IV PRN (07:58)
[2021-01-04] MEDS ORDERED: POTASSIUM CHLORIDE ER 20 MEQ TAB PO ONE (09:00)
--- NOTE | 2021-01-04 09:43 | Progress Note ---
Assessment and Plan Assessment and plan: Hospital course: 01/03: We will continue to trend gap on serial BMP, continue insulin drip until gap closure. Reglan as needed for nausea. Patient to remain n.p.o. 01/04: Symptoms have significantly improved. No longer nauseous or vomiting. Overnight patient was downgraded to medical floor and insulin drip was discontinued. Anion gap remains open that she will need aggressive inpatient insulin regimen and IV fluid with D5 half-normal saline. Rocephin was discontinued as this does not appear to be an infectious process. Anticipate discharge tomorrow morning. (1) Diabetic keto-acidosis Plan to address problem: Downgraded to medical floor overnight by bicycle inspector We will do the serial BMP. History of noncompliance. Would benefit from diabetic education and counseling however we do not have a leather polisher this weekend Patient states that her sugars were still 250 at home. Insulin drip was discontinued on evening of 01/03 by laureen Start Lantus 30 units twice daily correctional scale insulin Monitor anion gap, last anion gap 18 Diabetic diet (2) Hypokalemia Plan to address problem: Potassium is supplemented. Follow on BMP (3) Metabolic acidosis Current Visit: Yes Status: Acute Plan to address problem: Most likely secondary to DKA. Follow anion gap on BMP (4) Nausea & vomiting Current Visit: Yes Status: Acute Qualifiers: Vomiting type: unspecified Vomiting Intractability: intractable Qualified Code(s): R11.2 - Nausea with vomiting, unspecified Plan to address problem: Pepcid 20 mg IV every 12 hours. Zofran 4 mg IV every 6 hours as needed. Reglan as needed Sucralfate with meals Symptomology is improving. (5) Leukocytosis Current Visit: Yes Status: Acute Plan to address problem: DC Rocephin 2 g IV daily. This is likely stress-induced from DKA. (6) DVT prophylaxis Current Visit: No Status: Acute Plan to address problem: Heparin 5000 units subcu every 8 hours for DVT prophylaxis. Pepcid 20 mg IV every 12 hours for GI prophylaxis. Patient is a full code History Interval history: Overnight, insulin drip was discontinued and patient was started on sliding scale insulin by bicycle inspector. No acute complaints on encounter today. Blood sugars have been in low 100s most of last night and this morning. Patient was able to tolerate breakfast today. She states that she is no longer nauseous. Remainder of ROS negative. Hospitalist Physical - Physical exam Narrative exam: Physical Exam: VITAL SIGNS: Reviewed. GENERAL: The patient appears normally developed, Vital signs as documented. HEAD: No signs of head trauma. EYES: Pupils are equal. Extraocular motions intact. EARS: Hearing grossly intact. MOUTH: Oropharynx is normal. NECK: No adenopathy, no JVD. CHEST: Chest with clear breath sounds bilaterally. No wheezes, rales, or rhonchi. CARDIAC: Regular rate and rhythm. S1 and S2, without murmurs, gallops, or rubs. VASCULAR: No Edema. Peripheral pulses normal and equal in all extremities. ABDOMEN: Soft, non tender and non distended. No rebound or guarding, and no masses palpated. Bowel Sounds normal. MUSCULOSKELETAL: Good range of motion of all major joints. Extremities without clubbing, cyanosis or edema. NEUROLOGIC EXAM: Alert oriented x4. No focal sensory or strength deficits. PSYCHIATRIC: Mood normal. SKIN: detail exam as documented in skin assessment - Constitutional Vitals: Temp Pulse Resp BP Pulse Ox 98.8 F 84 18 153/94 99 01/04/21 08:06 01/04/21 08:06 01/04/21 08:06 01/04/21 08:06 01/04/21 08:06 General appearance: Present: no acute distress, well-nourished Results - Labs CBC & Chem 7: 01/04/21 04:20 01/04/21 04:20 Labs: Laboratory Last Values WBC 13.2 K/mm3 (4.5-11.0) H 01/04/21 04:20 RBC 4.09 M/mm3 (3.65-5.03) 01/04/21 04:20 Hgb 11.0 gm/dl (10.1-14.3) 01/04/21 04:20 Hct 34.5 % (30.3-42.9) D 01/04/21 04:20 MCV 84 fl (79-97) 01/04/21 04:20 MCH 27 pg (28-32) L 01/04/21 04:20 MCHC 32 % (30-34) 01/04/21 04:20 RDW 13.3 % (13.2-15.2) 01/04/21 04:20 Plt Count 335 K/mm3 (140-440) 01/04/21 04:20 Lymph % (Auto) 20.5 % (13.4-35.0) 01/04/21 04:20 Grainger % (Auto) 6.7 % (0.0-7.3) 01/04/21 04:20 Eos % (Auto) 0.8 % (0.0-4.3) 01/04/21 04:20 Baso % (Auto) 0.2 % (0.0-1.8) 01/04/21 04:20 Lymph # (Auto) 2.7 K/mm3 (1.2-5.4) 01/04/21 04:20 Grainger # (Auto) 0.9 K/mm3 (0.0-0.8) H 01/04/21 04:20 Eos # (Auto) 0.1 K/mm3 (0.0-0.4) 01/04/21 04:20 Baso # (Auto) 0.0 K/mm3 (0.0-0.1) 01/04/21 04:20 Add Manual Diff Complete 01/03/21 01:12 Total Counted 100 01/03/21 01:12 Seg Neutrophils % 71.8 % (40.0-70.0) H 01/04/21 04:20 Seg Neuts % (Manual) 90.0 % (40.0-70.0) H 01/03/21 01:12 Lymphocytes % (Manual) 7.0 % (13.4-35.0) L 01/03/21 01:12 Monocytes % (Manual) 3.0 % (0.0-7.3) 01/03/21 01:12 Nucleated RBC % Not Reportable 01/03/21 01:12 Seg Neutrophils # 9.5 K/mm3 (1.8-7.7) H 01/04/21 04:20 Seg Neutrophils # Man 13.8 K/mm3 (1.8-7.7) H 01/03/21 01:12 Band Neutrophils # 0.0 K/mm3 01/03/21 01:12 Lymphocytes # (Manual) 1.1 K/mm3 (1.2-5.4) L 01/03/21 01:12 Abs React Lymphs (Man) 0.0 K/mm3 01/03/21 01:12 Monocytes # (Manual) 0.5 K/mm3 (0.0-0.8) 01/03/21 01:12 Eosinophils # (Manual) 0.0 K/mm3 (0.0-0.4) 01/03/21 01:12 Basophils # (Manual) 0.0 K/mm3 (0.0-0.1) 01/03/21 01:12 Metamyelocytes # 0.0 K/mm3 01/03/21 01:12 Myelocytes # 0.0 K/mm3 01/03/21 01:12 Promyelocytes # 0.0 K/mm3 01/03/21 01:12 Blast Cells # 0.0 K/mm3 01/03/21 01:12 WBC Morphology Not Reportable 01/03/21 01:12 Hypersegmented Neuts Not Reportable 01/03/21 01:12 Hyposegmented Neuts Not Reportable 01/03/21 01:12 Hypogranular Neuts Not Reportable 01/03/21 01:12 Smudge Cells Not Reportable 01/03/21 01:12 Toxic Granulation Not Reportable 01/03/21 01:12 Toxic Vacuolation Not Reportable 01/03/21 01:12 Dohle Bodies Not Reportable 01/03/21 01:12 Pelger-Huet Anomaly Not Reportable 01/03/21 01:12 Donald Rods Not Reportable 01/03/21 01:12 Platelet Estimate Not Reportable 01/03/21 01:12 Clumped Platelets Not Reportable 01/03/21 01:12 Plt Clumps, EDTA Not Reportable 01/03/21 01:12 Large Platelets Not Reportable 01/03/21 01:12 Giant Platelets Not Reportable 01/03/21 01:12 Platelet Satelliting Not Reportable 01/03/21 01:12 Plt Morphology Comment Not Reportable 01/03/21 01:12 RBC Morphology Not Reportable 01/03/21 01:12 Dimorphic RBCs Not Reportable 01/03/21 01:12 Polychromasia Not Reportable 01/03/21 01:12 Hypochromasia 1+ 01/03/21 01:12 Poikilocytosis Not Reportable 01/03/21 01:12 Anisocytosis Rare 01/03/21 01:12 Microcytosis Not Reportable 01/03/21 01:12 Macrocytosis Not Reportable 01/03/21 01:12 Spherocytes Not Reportable 01/03/21 01:12 Pappenheimer Bodies Not Reportable 01/03/21 01:12 Sickle Cells Not Reportable 01/03/21 01:12 Target Cells Not Reportable 01/03/21 01:12 Tear Drop Cells Not Reportable 01/03/21 01:12 Ovalocytes Not Reportable 01/03/21 01:12 Helmet Cells Not Reportable 01/03/21 01:12 Ibrahim-Masthope Bodies Not Reportable 01/03/21 01:12 [place] Rings Not Reportable 01/03/21 01:12 Yulia Cells Not Reportable 01/03/21 01:12 Bite Cells Not Reportable 01/03/21 01:12 Crenated Cell Not Reportable 01/03/21 01:12 Elliptocytes Not Reportable 01/03/21 01:12 Acanthocytes (Spur) Not Reportable 01/03/21 01:12 Rouleaux Not Reportable 01/03/21 01:12 Hemoglobin C Crystals Not Reportable 01/03/21 01:12 Schistocytes Not Reportable 01/03/21 01:12 Malaria parasites Not Reportable 01/03/21 01:12 Jim Bodies Not Reportable 01/03/21 01:12 Hem Pathologist Commnt No 01/03/21 01:12 VBG pH 7.403 (7.320-7.420) 01/03/21 01:12 Sodium 139 mmol/L (137-145) 01/04/21 04:20 Potassium 3.4 mmol/L (3.6-5.0) L 01/04/21 04:20 Chloride 105.8 mmol/L (98-107) 01/04/21 04:20 Carbon Dioxide 20 mmol/L (22-30) L 01/04/21 04:20 Anion Gap 17 mmol/L 01/04/21 04:20 BUN 9 mg/dL (7-17) 01/04/21 04:20 Creatinine 1.0 mg/dL (0.6-1.2) 01/04/21 04:20 Estimated GFR > 60 ml/min 01/04/21 04:20 BUN/Creatinine Ratio 9 % 01/04/21 04:20 Glucose 146 mg/dL (65-100) H 01/04/21 04:20 POC Glucose 107 mg/dL (70-105) H 01/04/21 07:31 Calcium 8.9 mg/dL (8.4-10.2) 01/04/21 04:20 Phosphorus 2.80 mg/dL (2.5-4.5) 01/03/21 09:30 Magnesium 2.00 mg/dL (1.7-2.3) 01/04/21 04:20 Total Bilirubin 1.30 mg/dL (0.1-1.2) H 01/03/21 01:12 AST 14 units/L (5-40) 01/03/21 01:12 ALT 14 units/L (7-56) 01/03/21 01:12 Alkaline Phosphatase 90 units/L (35-129) 01/03/21 01:12 Total Protein 8.5 g/dL (6.3-8.2) H D 01/03/21 01:12 Albumin 4.1 g/dL (3.9-5) 01/03/21 01:12 Albumin/Globulin Ratio 0.9 % 01/03/21 01:12 Lipase 21 units/L (13-60) 01/03/21 01:12 HCG, Qual Negative (Negative) 01/03/21 01:12 Urine Color Yellow (Yellow) 01/03/21 Unknown Urine Turbidity Clear (Clear) 01/03/21 Unknown Urine pH 6.0 (5.0-7.0) 01/03/21 Unknown Ur Specific Mcdade 1.021 (1.003-1.030) 01/03/21 Unknown Urine Protein >500 mg/dL (Negative) 01/03/21 Unknown Urine Glucose (UA) >=500 mg/dL (Negative) 01/03/21 Unknown Urine Ketones 80 mg/dL (Negative) 01/03/21 Unknown Urine Blood Neg (Negative) 01/03/21 Unknown Urine Nitrite Neg (Negative) 01/03/21 Unknown Urine Bilirubin Neg (Negative) 01/03/21 Unknown Urine Urobilinogen < 2.0 mg/dL (<2.0) 01/03/21 Unknown Ur Leukocyte Esterase Neg (Negative) 01/03/21 Unknown Urine WBC (Auto) 2.0 /HPF (0.0-6.0) 01/03/21 Unknown Urine RBC (Auto) 2.0 /HPF (0.0-6.0) 01/03/21 Unknown U Epithel Cells (Auto) 2.0 /HPF (0-13.0) 01/03/21 Unknown Urine Mucus Few /HPF 01/03/21 Unknown Gonsales/IV: Voiding Method Toilet Active Medications - Current Medications Current Medications: Generic Name Dose Route Start Last Admin Trade Name Freq PRN Reason Stop Dose Admin Acetaminophen 650 mg 01/03/21 05:45 Acetaminophen 325 Mg Tab PO Q4H PRN Pain MILD(1-3)/Fever >100.5/OCAMPO Albuterol 2.5 mg 01/03/21 05:45 Albuterol 2.5 Mg/3 Ml Nebu IH Q4HRT PRN Shortness Of Breath Amlodipine Besylate 5 mg 01/03/21 10:00 01/03/21 10:40 Amlodipine 5 Mg Tab PO 5 mg QDAY HEVER Administration Dextrose 0 ml 01/03/21 05:45 Dextrose 50% In Water (25gm) 50 Ml Syringe IV Q30MIN PRN Hypoglycemia Protocol Heparin Sodium (Porcine) 5,000 unit 01/03/21 06:00 01/04/21 06:45 Heparin 5,000 Unit/1 Ml Vial SUB-Q 5,000 unit Q8HR HEVER Administration Hydralazine HCl 10 mg 01/03/21 08:00 01/03/21 09:39 Hydralazine 20 Mg/1 Ml Inj IV 10 mg Q4H PRN Administration Hypertension Hydromorphone HCl 0.5 mg 01/03/21 05:45 01/04/21 02:55 Hydromorphone 1 Mg/1 Ml Inj IV 0.5 mg Q3H PRN Administration Pain , Severe (7-10) Potassium Chloride/Dextrose/Sod Cl 20 meq in 1,000 mls @ 125 mls/hr 01/03/21 03:00 01/03/21 10:00 D5w/0.45% Nacl/Kcl 20 Meq IV 125 mls/hr DIRECT HEVER Administration Ceftriaxone Sodium 2 gm in 100 mls @ 200 mls/hr 01/03/21 06:00 01/04/21 06:45 Rocephin/Ns 2 Gm/100 Ml IV 200 mls/hr Q24H HEVER Administration Protocol Insulin Glargine 25 units 01/04/21 10:00 Insulin Glargine 100 Units/Ml SUB-Q BID [facility] Insulin Human Regular 0 units 01/04/21 01:00 01/04/21 07:05 Insulin Regular, Human 100 Units/1 Ml SUB-Q Not Given Q6HR [facility] Protocol Lisinopril 40 mg 01/03/21 10:00 01/03/21 12:18 Lisinopril 40 Mg Tab PO 40 mg QDAY HEVER Administration Metoclopramide HCl 10 mg 01/04/21 07:58 Metoclopramide 10 Mg/2 Ml Inj IV Q6H PRN Nausea And Vomiting Ondansetron HCl 4 mg 01/03/21 05:45 01/03/21 12:14 Ondansetron 4 Mg/2 Ml Inj IV 4 mg Q8H PRN Administration Nausea And Vomiting Oxycodone/Acetaminophen 1 tab 01/03/21 05:45 01/04/21 05:50 Oxycodone /Acetaminophen 5-325mg Tab PO 1 tab Q6H PRN Administration Pain, Moderate (4-6) Pantoprazole Sodium 40 mg 01/03/21 10:00 01/03/21 10:40 Pantoprazole 40 Mg Tab PO 40 mg QDAY [facility] Administration Sodium Chloride 10 ml 01/03/21 10:00 01/03/21 23:26 Sodium Chloride 0.9% 10 Ml Flush Syringe IV Not Given BID HEVER Sodium Chloride 10 ml 01/03/21 05:45 Sodium Chloride 0.9% 10 Ml Flush Syringe IV PRN PRN LINE FLUSH Sucralfate 1 gm 01/04/21 11:30 Sucralfate 1 Gm/10 Ml Oral Liqd PO ACHS [facility] Nutrition/Malnutrition Assess - Dietary Evaluation Nutrition/Malnutrition Findings: Nutrition Notes Start: 01/03/21 10:36 Freq: Status: Active Protocol: Document 01/03/21 10:36 GB (Rec: 01/03/21 10:46 GB [id number]) Nutrition Notes Need for Assessment generated from: MD Order,Education Initial or Follow up Assessment Other Pertinent Diagnosis Hyper-emesis. PMHx: DM, HTN, DKA Current Diet NPO (0.5 days) Labs/Tests 01/03: glucose 296, K 3.1, Mg 1.6 Pertinent Medications D5(PRN), KCl/D5/NaCl @ 125ml/ hr (510kcal), KCl Height 5 ft 3 in Weight 90.718 kg [place] Body Weight (kg) 52.27 BMI 35.4 Intake Prior to Admission Poor Weight change and time frame No reported weight changes at admission Weight Status Obese Subjective/Other Information Per MD notes 01/03: Past DKA treatment, pt unable to keep meds down r/t hyper-emesis. No mention if gestational DM: atypical vs normal r/t abdominal pain/hyper-emesis/ age MD consult for nutrition education: education to be provided when pt moves to floor, currently not a candidate for education. Percent of energy/protein needs met: 0% - currently NPO (0.5 days) Burn Absent Trauma Absent GI Symptoms Nausea,Vomiting,Other Food Allergy No Skin Integrity/Comment No complications reported Current % PO Poor (25-49%) Minimum of two criteria No #1 Nutrition Diagnosis Inadequate energy intake,Food and nutrition-related knowledge deficit Etiology hyper-emesis As Evidenced by Signs and Symptoms DKA, elevated Bglucose labs MD consult for nutrition education Is patient on ventilator? No Is Patient Ambulatory and/or Out of Bed Yes REE-([facility]-ambulatory/OOB) [ 2094.703 [id number]] Kcal/Kg value to use for calculation 18 Approximate Energy Requirements Using 1633 kcal/Kg Calculation Used for Recommendations Kcal/kg Additional Notes Protein: 0.8-1 g/kg @ 91k -91g Fluids: 1ml/kcal or per MD Nutrition Intervention Change Diet Order: Advance to Consistent carbohydrate when medically feasible Nutrition Support: n/a Add Supplement/Snack (indicate name/kcal n/a /protein ) Teaching Recipient Patient Teaching Methods Handout Education Handouts Provided AND: General Nutrition edcuation packet with DM targetted meal tips. Goal #1 Education packet to be reviewed and provided at f/u. Goal #2 Diet advanced to consistent carbohydrate by f/u Goal #3 PO intake of meals to be 50% or greater daily by f/u Follow-Up By: 01/07/21 Additional Comments f/u: provided General healthy Nutrition handout w/DM tips, diet advancement/PO
[2021-01-04] MEDS: INSULIN GLARGINE 100 UNITS/ML SUB-Q SCH ×3 (10:00→21:44)
[2021-01-04] MEDS: LISINOPRIL 40 MG TAB PO SCH (11:00)
[2021-01-04] MEDS: amLODIPine 5 MG TAB PO SCH (11:00)
[2021-01-04] MEDS: PANTOPRAZOLE 40 MG TAB PO SCH (11:00)
[2021-01-04] MEDS: SUCRALFATE 1 GM/10 ML ORAL LIQD PO SCH ×3 (12:00→21:45)
[2021-01-04 16:20] LABS: BUN/Creatinine Ratio 12; Blood Urea Nitrogen 12 mg/dL (7-17); Calcium 8.2 mg/dL (8.4-10.2); Hemolysis Index 9
[2021-01-05] MEDS: INSULIN REGULAR, HUMAN 100 UNITS/1 ML SUB-Q SCH ×3 (01:26→12:49)
[2021-01-05 05:39] LABS: BUN/Creatinine Ratio 11; Blood Urea Nitrogen 10 mg/dL (7-17); Calcium 8.2 mg/dL (8.4-10.2); Hemolysis Index 8
[2021-01-05] MEDS: HEPARIN 5,000 UNIT/1 ML VIAL SUB-Q SCH ×2 (06:03→16:27)
[2021-01-05] MEDS: HYDROmorphone 1 MG/1 ML INJ IV PRN (06:29)
[2021-01-05] MEDS: SUCRALFATE 1 GM/10 ML ORAL LIQD PO SCH ×3 (06:30→16:27)
--- NOTE | 2021-01-05 07:59 | Discharge Summary ---
Providers - Providers Date of Admission: 01/03/21 03:22 Date of discharge: 01/05/21 Attending physician: JONATAN RICHARD MD 01/03/21 05:45 Consult to Dietitian/Nutrition [CONS] Routine Physician Instructions: Reason For Exam: DKA Reason for Consult: Nutrition Recommendations Reason for Consult: Diet education Primary care physician: IT RISK AND ASSURANCE MANAGER Hospitalization Reason for admission: Nausea, vomiting Condition: Critical Hospital course: Hospital course: 01/03: We will continue to trend gap on serial BMP, continue insulin drip until gap closure. Reglan as needed for nausea. Patient to remain n.p.o. 01/04: Symptoms have significantly improved. No longer nauseous or vomiting. Overnight patient was downgraded to medical floor and insulin drip was discontinued. Anion gap remains open that she will need aggressive inpatient insulin regimen and IV fluid with D5 half-normal saline. Rocephin was discontinued as this does not appear to be an infectious process. Anticipate discharge tomorrow morning. 01/05: Symptoms have demonstrated improvement. Anion gap is now closed and patient does not appear to be acidotic. Blood sugars have been in low 100s. Plan for patient to be discharged today. She will be prescribed NPH 70/30 insulin 45 units twice daily, sucralfate with meals, Reglan as needed for nausea, Senna liquid as needed for constipation. She is advised to continue her home amlodipine, lisinopril, Protonix. She is advised to follow-up with a primary care doctor in 3 to 5 days. We also recommend that she establishes with an out and out cigar maker hand as soon as possible to better manage her diabetes. (1) Diabetic keto-acidosis Plan to address problem: Downgraded to medical floor overnight by laureen We will do the serial BMP. History of noncompliance. Would benefit from diabetic education and counseling however we do not have a project control officer this weekend Patient states that her sugars were still 250 at home. Insulin drip was discontinued on evening of 01/03 by laureen Start Lantus 30 units twice daily correctional scale insulin Monitor anion gap, last anion gap 18 Diabetic diet (2) Hypokalemia Plan to address problem: Potassium is supplemented. Follow on BMP (3) Metabolic acidosis Current Visit: Yes Status: Acute Plan to address problem: Most likely secondary to DKA. Follow anion gap on BMP (4) Nausea & vomiting Current Visit: Yes Status: Acute Qualifiers: Vomiting type: unspecified Vomiting Intractability: intractable Qualified Code(s): R11.2 - Nausea with vomiting, unspecified Plan to address problem: Pepcid 20 mg IV every 12 hours. Zofran 4 mg IV every 6 hours as needed. Reglan as needed Sucralfate with meals Symptomology is improving. (5) Leukocytosis Current Visit: Yes Status: Acute Plan to address problem: DC Rocephin 2 g IV daily. This is likely stress-induced from DKA. (6) DVT prophylaxis Current Visit: No Status: Acute Plan to address problem: Heparin 5000 units subcu every 8 hours for DVT prophylaxis. Pepcid 20 mg IV every 12 hours for GI prophylaxis. Patient is a full code Disposition: 01 HOME / SELF CARE / HOMELESS Final Discharge Diagnosis (Prints w/discharge instructions): Diabetic ketoacidosis Time spent for discharge: 35 - Discharge Diagnoses (1) Abdominal pain Status: Acute Qualifiers: Abdominal location: generalized Qualified Code(s): R10.84 - Generalized abdominal pain (2) Diabetic keto-acidosis Status: Acute Qualifiers: Diabetes mellitus type: type 1 Diabetes mellitus complication detail: without coma Qualified Code(s): E10.10 - Type 1 diabetes mellitus with ketoacidosis without coma (3) Hyperglycemia Status: Acute (4) Metabolic acidosis Status: Acute Comment: Secondary to ketoacidosis resolved. (5) Nausea & vomiting Status: Acute Qualifiers: Vomiting type: unspecified Vomiting Intractability: intractable Qualified Code(s): R11.2 - Nausea with vomiting, unspecified Core Measure Documentation - Palliative Care Palliative Care/ Comfort Measures: Not Applicable - Core Measures Any of the following diagnoses?: none Exam - Physical Exam Narrative exam: Physical Exam: VITAL SIGNS: Reviewed. GENERAL: The patient appears normally developed, Vital signs as documented. HEAD: No signs of head trauma. EYES: Pupils are equal. Extraocular motions intact. EARS: Hearing grossly intact. MOUTH: Oropharynx is normal. NECK: No adenopathy, no JVD. CHEST: Chest with clear breath sounds bilaterally. No wheezes, rales, or rhonchi. CARDIAC: Regular rate and rhythm. S1 and S2, without murmurs, gallops, or rubs. VASCULAR: No Edema. Peripheral pulses normal and equal in all extremities. ABDOMEN: Soft, non tender and non distended. No rebound or guarding, and no masses palpated. Bowel Sounds normal. MUSCULOSKELETAL: Good range of motion of all major joints. Extremities without clubbing, cyanosis or edema. NEUROLOGIC EXAM: Alert oriented x4. No focal sensory or strength deficits. PSYCHIATRIC: Mood normal. SKIN: detail exam as documented in skin assessment - Constitutional Vitals: Temp Pulse Resp BP Pulse Ox 99.0 F 90 18 136/76 99 01/05/21 04:09 01/05/21 04:09 01/05/21 04:09 01/05/21 04:09 01/05/21 07:31 Plan Follow up with: PRIMARY CARE, [Primary Care Provider] - 7 Days Prescriptions: RX: Sucralfate [Carafate] 1 gm PO ACHS 30 Days #1 bottle RX: Insulin NPH/Regular [NovoLIN 70/30] 25 unit SUB-Q BIDDIAB 30 Days #45 units Metoclopramide HCl [Reglan TAB] 5 mg PO Q8HR PRN 6 Days #18 tablet PRN Reason: Nausea And Vomiting RX: Sennosides Oral Liqd [Senokot] 17.6 mg PO Q12H PRN 30 Days #1 bottle PRN Reason: Laxative Effect
[2021-01-05] MEDS ORDERED: POLYETHYLENE GLYCOL 3350 17 GM POWDER PO PRN (09:09)
[2021-01-05] MEDS ORDERED: SENNOSIDES ORAL LIQD 8.8 MG/5 ML ORAL LIQD PO PRN (09:09)
[2021-01-05] MEDS: amLODIPine 5 MG TAB PO SCH (11:28)
[2021-01-05] MEDS: PANTOPRAZOLE 40 MG TAB PO SCH (11:28)
[2021-01-05] MEDS: LISINOPRIL 40 MG TAB PO SCH (11:29)
[2021-01-05] MEDS: INSULIN GLARGINE 100 UNITS/ML SUB-Q SCH (11:29)
[2021-01-05 13:05] VITALS: BP 148/95
[2021-01-05] MEDS: oxyCODONE /ACETAMINOPHEN 5-325MG TAB PO PRN (17:00)
== END 2021-01-05 18:15 | disposition home or self-care (01) | DRG 639 ==
LOC: ED 23:12 → CC1 01-03 03:22 → 4A 01-04 06:22
PROVIDERS: ADMIT Hospitalist; ATTEND Internal Medicine
DX: E10.10 Type 1 diabetes mellitus with ketoacidosis without coma (principal); I10 Essential (primary) hypertension; E87.6 Hypokalemia; E86.0 Dehydration; E10.65 Type 1 diabetes mellitus with hyperglycemia; D72.829 Elevated white blood cell count, unspecified; Z20.822 Contact with and (suspected) exposure to COVID-19
CPT/HCPCS: 36415; 80048; 80053; 81001; 82805; 82962; 83690; 83735; 84100; 84703; 85007; 85025; G0378; J0360; J0500; J0696; J1170; J1644; J1815; J2405; J2765; J3475; J3480; J7030; J7050; J7120

== ENCOUNTER 2021-01-09 17:01 | Emergency (ER) | payer SELFPAY ==
--- NOTE | 2021-01-09 17:06 | Event Note ---
ED Screening Note ED Screening Note: Past medical history of diabetes and gastroparesis Recently admitted for DKA Presents for hyperglycemia, vomiting, abdominal pain This initial assessment/diagnostic orders/clinical plan/treatment(s) is/are subject to change based on patients health status, clinical progression and re- assessment by fellow clinical providers in the ED. Further treatment and workup at subsequent clinical providers discretion. Patient/guardian urged not to elope from the ED as their condition may be serious if not clinically assessed and managed. Initial orders include: Labs, urine MD grossman
[2021-01-09] MEDS ORDERED: SODIUM CHLORIDE 0.9% 1000 ML 1,000 ML IV ONE ×2 (17:12)
[2021-01-09] MEDS ORDERED: ONDANSETRON 4 MG/2 ML INJ IV ONE (17:28)
[2021-01-09] MEDS ORDERED: fentaNYL 100 MCG/2 ML INJ IV ONE (17:28)
[2021-01-09] MEDS ORDERED: FAMOTIDINE 20 MG/2 ML INJ IV ONE (17:32)
--- NOTE | 2021-01-09 17:32 | Emergency Department Report ---
HPI - General Chief Complaint: Hyperglycemia Time Seen by Provider: 01/09/21 17:11 - HPI HPI: Room 5 The patient is a 25-year-old female present with a chief complaint of "DKA." Patient was recently admitted and discharged after being treated for DKA. Patient states her symptoms returned today with nausea vomiting "breathing funny" and substernal chest pain that worsens whenever she vomits. Patient denies history of fever or cough. Patient denies sick contacts. Patient states she has not received any vaccinations against Covid. The patient states today she noticed her glucose is elevated at 290 so she took her insulin 70/30 40 units at approximately 13:00 prior to arrival ED Past Medical Hx - Past Medical History Previous Medical History?: Yes Hx Hypertension: Yes Hx Diabetes: Yes Additional medical history: Gastroparesis - Surgical History Past Surgical History?: No - Family History Family history: no significant - Social History Smoking Status: Never Smoker Substance Use Type: None (Denies illicit drug use) - Medications Home Medications: Home Medications Medication Instructions Recorded Confirmed Last Taken Type Pantoprazole [Protonix TAB] 40 mg PO QDAY 30 Days #30 tablet 01/01/21 Unknown Rx amLODIPine 5 mg PO QDAY 30 Days #30 tablet 01/01/21 Unknown Rx lisinopriL [Zestril TAB] 40 mg PO QDAY 30 Days #30 tablet 01/01/21 Unknown Rx Insulin NPH/Regular [NovoLIN 70/30] 25 unit SUB-Q BIDDIAB 30 Days #45 01/05/21 Unknown Rx units Metoclopramide HCl [Reglan TAB] 5 mg PO Q8HR PRN 6 Days #18 tablet 01/05/21 Unknown Rx Sennosides Oral Liqd [Senokot] 17.6 mg PO Q12H PRN 30 Days #1 01/05/21 Unknown Rx bottle Sucralfate [Carafate] 1 gm PO ACHS 30 Days #1 bottle 01/05/21 Unknown Rx HYDROcodone/APAP 5-325 [Capulin 1 - 2 each PO Q6HR PRN #14 tablet 01/09/21 Unkn own Rx 5/325] Metoclopramide [Reglan] 10 mg PO TID #30 tab 01/09/21 Unknown Rx ED Review of Systems ROS: Stated complaint: DKA Other details as noted in HPI Constitutional: denies: fever Eyes: denies: eye pain ENT: denies: throat pain Respiratory: shortness of breath. denies: cough Cardiovascular: as per HPI Endocrine: no symptoms reported Gastrointestinal: nausea, vomiting. denies: diarrhea Genitourinary: denies: dysuria Musculoskeletal: denies: back pain Neurological: denies: headache Physical Exam - Physical Exam Vital Signs: Vital Signs 01/09/21 17:02 Temperature 98 F Pulse Rate 129 H Respiratory 16 Rate Blood Pressure 181/121 [Left] O2 Sat by Pulse 99 Oximetry Physical Exam: GENERAL: The patient is well-developed well-nourished female sitting on stretcher holding emesis bag appearing to be in mild discomfort. [] HEENT: Normocephalic. Atraumatic. Extraocular motions are intact. NECK: Supple. Trachea midline CHEST/LUNGS: Clear to auscultation. There is no respiratory distress noted. HEART/CARDIOVASCULAR: Regular. There is tachycardia. There is no gallop rub or murmur. ABDOMEN: Abdomen is soft, with diffuse discomfort to palpation. There is no re bound or guarding. Patient has normal bowel sounds. There is no abdominal distention. SKIN: There is no rash. There is no edema. There is no diaphoresis. NEURO: The patient is awake, alert, and oriented. The patient is cooperative. The patient has no focal neurologic deficits. The patient has normal speech. GCS 15 MUSCULOSKELETAL:There is no evidence of acute injury. ED Course Vital Signs 01/09/21 17:02 Temperature 98 F Pulse Rate 129 H Respiratory 16 Rate Blood Pressure 181/121 [Left] O2 Sat by Pulse 99 Oximetry - Reevaluation(s) Reevaluation #1: 01/09/21 22:00 Patient improved ED Medical Decision Making - Lab Data Result diagrams: 01/09/21 17:32 01/09/21 17:32 Laboratory Tests 01/09/21 01/09/21 01/09/21 17:02 17:32 17:32 WBC 10.2 RBC 4.38 Hgb 12.1 Hct 37.0 MCV 85 MCH 28 MCHC 33 RDW 14.2 Plt Count 414 Lymph % (Auto) 11.9 L [place] % (Auto) 5.7 Eos % (Auto) 1.8 Baso % (Auto) 0.4 Lymph # (Auto) 1.2 [place] # (Auto) 0.6 Eos # (Auto) 0.2 Baso # (Auto) 0.0 Seg Neutrophils % 80.2 H Seg Neutrophils # 8.1 H VBG pH Sodium 137 Potassium 3.5 L Chloride 98.7 Carbon Dioxide 19 L Anion Gap 23 BUN 7 Creatinine 0.9 Estimated GFR > 60 BUN/Creatinine Ratio 8 Glucose 192 H POC Glucose 177 H Calcium 9.9 D Total Bilirubin 0.80 AST 18 ALT 25 Alkaline Phosphatase 79 Total Protein 8.2 Albumin 3.9 Albumin/Globulin Ratio 0.9 HCG, Qual 01/09/21 01/09/21 17:32 17:32 WBC RBC Hgb Hct MCV MCH MCHC RDW Plt Count Lymph % (Auto) [place] % (Auto) Eos % (Auto) Baso % (Auto) Lymph # (Auto) [place] # (Auto) Eos # (Auto) Baso # (Auto) Seg Neutrophils % Seg Neutrophils # VBG pH 7.527 H Sodium Potassium Chloride Carbon Dioxide Anion Gap BUN Creatinine Estimated GFR BUN/Creatinine Ratio Glucose POC Glucose Calcium Total Bilirubin AST ALT Alkaline Phosphatase Total Protein Albumin Albumin/Globulin Ratio HCG, Qual Negative - Differential Diagnosis Gastroparesis, DKA, dehydration, GERD Critical care attestation.: If time is entered above; I have spent that time in minutes in the direct care of this critically ill patient, excluding procedure time. ED Disposition Clinical Impression: Gastroparesis, Abdominal pain Disposition: 01 HOME / SELF CARE / HOMELESS Is pt being admited?: No Does the pt Need Aspirin: No Condition: Stable Additional Instructions: Return to the emergency department should you develop worsening symptoms, inability to tolerate food or liquids, high fever or any other concerns Prescriptions: HYDROcodone/APAP 5-325 [Capulin 5/325] 1 - 2 each PO Q6HR PRN #14 tablet PRN Reason: Pain Metoclopramide [Reglan] 10 mg PO TID #30 tab Referrals: PRIMARY CAREMD [Primary Care Provider] - 3-5 Days [facility] [Provider Group] - 3-5 Days ANGELIKA HARPER MD [Staff Physician] - 3-5 Days (Dr. Harper is a extrusion die repair manager. Please follow-up with him for further evaluate) Time of Disposition: 22:00
[2021-01-09 18:14] LABS: Alanine Aminotransferase 25 units/L (7-56); Albumin 3.9 g/dL (3.9-5); BUN/Creatinine Ratio 8; Blood Urea Nitrogen 7 mg/dL (7-17); Calcium 9.9 mg/dL (8.4-10.2); Hemolysis Index 32
[2021-01-09 18:51] LABS: Basophils % (Auto) 0.4 % (0.0-1.8); Eosinophils # (Auto) 0.2 K/mm3 (0.0-0.4); Eosinophils % (Auto) 1.8 % (0.0-4.3); Hemoglobin 12.1 gm/dl (10.1-14.3); Lymphocytes # (Auto) 1.2 K/mm3 (1.2-5.4); Lymphocytes % (Auto) 11.9 % (13.4-35.0); Mean Corpuscular HGB Conc 33 % (30-34); Mean Corpuscular Volume 85 fl (79-97); Monocytes # (Auto) 0.6 K/mm3 (0.0-0.8); Monocytes % (Auto) 5.7 % (0.0-7.3); Platelet Count 414 K/mm3 (140-440); Red Blood Count 4.38 M/mm3 (3.65-5.03); Red Cell Distribution Width 14.2 % (13.2-15.2)
[2021-01-09] MEDS ORDERED: cloNIDine 0.2 MG TAB PO ONE (19:14)
[2021-01-09] MEDS ORDERED: HYDROmorphone 1 MG/1 ML INJ IM ONE ×2 (19:14→20:10)
[2021-01-09] MEDS ORDERED: METOCLOPRAMIDE 10 MG/2 ML INJ IM ONE (19:14)
[2021-01-09 22:35] VITALS: BP 164/96
== END 2021-01-09 22:45 | disposition home or self-care (01) ==
LOC: ED 17:01
DX: E11.43 Type 2 diabetes mellitus with diabetic autonomic (poly)neuropathy (principal); K31.84 Gastroparesis; R10.9 Unspecified abdominal pain; R11.2 Nausea with vomiting, unspecified; R07.89 Other chest pain; I10 Essential (primary) hypertension; Z88.8 Allergy status to other drugs, medicaments and biological substances
CPT/HCPCS: 36415; 80053; 82805; 82962; 84703; 85025; 96372; 99283; J1170; J2405; J2765; J7030; J3010

== ENCOUNTER 2021-01-20 12:16 | Emergency (ER) | payer SELFPAY ==
[2021-01-20] MEDS ORDERED: ONDANSETRON 4 MG/2 ML INJ IV ONE (12:29)
[2021-01-20] MEDS ORDERED: SODIUM CHLORIDE 0.9% 1000 ML 1,000 ML IV ONE (12:29)
[2021-01-20] MEDS ORDERED: INSULIN REGULAR, HUMAN 100 UNITS/1 ML IV ONE ×2 (12:30→16:00)
--- NOTE | 2021-01-20 12:32 | Emergency Department Report ---
ED General Adult HPI - General Chief complaint: Hyperglycemia Stated complaint: BLOODSUGAR 450 PUI?: No Time Seen by Provider: 01/20/21 12:19 Source: patient Mode of arrival: Ambulatory Limitations: No Limitations - History of Present Illness Initial comments: 25 YO COMES TO ER WITH N/V FOR 2 DAYS. HX DM WITH INC BLOOD GLUCOSE. 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 -: Gradual, days(s) Associated Symptoms: denies other symptoms Treatments Prior to Arrival: none - Related Data Previous Rx's Medication Instructions Recorded Last Taken Type Pantoprazole [Protonix TAB] 40 mg PO QDAY 30 Days #30 tablet 01/01/21 Unknown Rx amLODIPine 5 mg PO QDAY 30 Days #30 tablet 01/01/21 Unknown Rx lisinopriL [Zestril TAB] 40 mg PO QDAY 30 Days #30 tablet 01/01/21 Unknown Rx Insulin NPH/Regular [NovoLIN 70/30] 25 unit SUB-Q BIDDIAB 30 Days #45 01/05/21 Unknown Rx units Metoclopramide HCl [Reglan TAB] 5 mg PO Q8HR PRN 6 Days #18 tablet 01/05/21 Unknown Rx Sucralfate [Carafate] 1 gm PO ACHS 30 Days #1 bottle 01/05/21 Unknown Rx Metoclopramide [Reglan] 10 mg PO TID #30 tab 01/09/21 Unknown Rx Allergies Allergy/AdvReac Type Severity Reaction Status Date / Time ketorolac [From Toradol] AdvReac Nausea Verified 12/30/20 14:36 tramadol AdvReac Vomiting Verified 12/30/20 14:36 ED Review of Systems ROS: Stated complaint: BLOODSUGAR 450 Other details as noted in HPI Comment: All other systems reviewed and negative ED Past Medical Hx - Past Medical History Previous Medical History?: Yes Hx Hypertension: Yes Hx CVA: No Hx Heart Attack/AMI: No Hx Congestive Heart Failure: No Hx Diabetes: Yes Hx Deep Vein Thrombosis: No Hx Pulmonary Embolism: No Hx GERD: No Hx Liver Disease: No Hx Renal Disease: No Hx Sickle Cell Disease: No Hx Arthritis: No Hx Headaches / Migraines: No Hx Seizures: No Hx Kidney Stones: No Hx Psychiatric Treatment: No Hx Asthma: No Hx COPD: No Hx Tuberculosis: No Hx Dementia: No Hx HIV: No Additional medical history: Gastroparesis - Surgical History Past Surgical History?: No Hx Coronary Stent: No Hx Open Heart Surgery: No Hx Pacemaker: No Hx Internal Defibrillator: No Hx Cholecystectomy: No Hx Appendectomy: No Hx Breast Surgery: No Additional Surgical History: denies - Family History Family history: no significant - Social History Smoking Status: Never Smoker Substance Use Type: None (Denies illicit drug use) - Medications Home Medications: Home Medications Medication Instructions Recorded Confirmed Last Taken Type Pantoprazole [Protonix TAB] 40 mg PO QDAY 30 Days #30 tablet 01/01/21 Unknown Rx amLODIPine 5 mg PO QDAY 30 Days #30 tablet 01/01/21 Unknown Rx lisinopriL [Zestril TAB] 40 mg PO QDAY 30 Days #30 tablet 01/01/21 Unknown Rx Insulin NPH/Regular [NovoLIN 70/30] 25 unit SUB-Q BIDDIAB 30 Days #45 01/05/21 Unknown Rx units Metoclopramide HCl [Reglan TAB] 5 mg PO Q8HR PRN 6 Days #18 tablet 01/05/21 Unknown Rx Sucralfate [Carafate] 1 gm PO ACHS 30 Days #1 bottle 01/05/21 Unknown Rx Metoclopramide [Reglan] 10 mg PO TID #30 tab 01/09/21 Unknown Rx ED Physical Exam - General Limitations: No Limitations General appearance: alert, in no apparent distress - Head Head exam: Present: atraumatic, normocephalic - Eye Eye exam: Present: normal appearance - ENT ENT exam: Present: mucous membranes moist - Neck Neck exam: Present: normal inspection - Respiratory Respiratory exam: Present: normal lung sounds bilaterally. Absent: respiratory distress - Cardiovascular Cardiovascular Exam: Present: regular rate, normal rhythm. Absent: systolic murmur, diastolic murmur, rubs, gallop - GI/Abdominal GI/Abdominal exam: Present: soft, normal bowel sounds - Extremities Exam Extremities exam: Present: normal inspection - Back Exam Back exam: Present: normal inspection - Neurological Exam Neurological exam: Present: alert, oriented X3 - Psychiatric Psychiatric exam: Present: normal affect, normal mood - Skin Skin exam: Present: warm, dry, intact, normal color. Absent: rash ED Course Vital Signs 01/20/21 01/20/21 12:30 16:24 Temperature 98.0 F Pulse Rate 127 H 132 H Respiratory 20 Rate Blood Pressure 185/115 172/139 O2 Sat by Pulse 99 Oximetry ED Medical Decision Making - Lab Data Result diagrams: 01/20/21 12:43 01/20/21 12:43 - Radiology Data Radiology results: report reviewed, image reviewed - Medical Decision Making Lab Results 01/20/21 01/20/21 01/20/21 Range/Units 12:28 12:43 12:43 WBC 17.2 H (4.5-11.0) K/mm3 RBC 4.70 (3.65-5.03) M/mm3 Hgb 12.3 (10.1-14.3) gm/dl Hct 39.6 (30.3-42.9) % MCV 84 (79-97) fl MCH 26 L (28-32) pg MCHC 31 (30-34) % RDW 14.1 (13.2-15.2) % Plt Count 456 H (140-440) K/mm3 Add Manual Diff Complete Total Counted 100 Seg Neutrophils % Tower Hoist Operator Seg Neuts % (Manual) 93.0 H (40.0-70.0) % Lymphocytes % (Manual) 2.0 L (13.4-35.0) % Monocytes % (Manual) 5.0 (0.0-7.3) % Nucleated RBC % Not Reportable Seg Neutrophils # Man 16.0 H (1.8-7.7) K/mm3 Band Neutrophils # 0.0 K/mm3 Lymphocytes # (Manual) 0.3 L (1.2-5.4) K/mm3 Abs React Lymphs (Man) 0.0 K/mm3 Monocytes # (Manual) 0.9 H (0.0-0.8) K/mm3 Eosinophils # (Manual) 0.0 (0.0-0.4) K/mm3 Basophils # (Manual) 0.0 (0.0-0.1) K/mm3 Metamyelocytes # 0.0 K/mm3 Myelocytes # 0.0 K/mm3 Promyelocytes # 0.0 K/mm3 Blast Cells # 0.0 K/mm3 WBC Morphology Not Reportable Hypersegmented Neuts Not Reportable Hyposegmented Neuts Not Reportable Hypogranular Neuts Not Reportable Smudge Cells Not Reportable Toxic Granulation Not Reportable Toxic Vacuolation Not Reportable Dohle Bodies Not Reportable Pelger-Huet Anomaly Not Reportable Donald Rods Not Reportable Platelet Estimate Consistent w auto Clumped Platelets Not Reportable Plt Clumps, EDTA Not Reportable Large Platelets Not Reportable Giant Platelets Not Reportable Platelet Satelliting Not Reportable Plt Morphology Comment Not Reportable RBC Morphology Normal Dimorphic RBCs Not Reportable Polychromasia Not Reportable Hypochromasia Not Reportable Poikilocytosis Not Reportable Anisocytosis Not Reportable Microcytosis Not Reportable Macrocytosis Not Reportable Spherocytes Not Reportable Pappenheimer Bodies Not Reportable Sickle Cells Not Reportable Target Cells Not Reportable Tear Drop Cells Not Reportable Ovalocytes Not Reportable Helmet Cells Not Reportable Ibrahim-Glenaire Bodies Not Reportable [place] Rings Not Reportable Yulia Cells Not Reportable Bite Cells Not Reportable Crenated Cell Not Reportable Elliptocytes Not Reportable Acanthocytes (Spur) Not Reportable Rouleaux Not Reportable Hemoglobin C Crystals Not Reportable Schistocytes Not Reportable Malaria parasites Not Reportable Jim Bodies Not Reportable Hem Pathologist Commnt No VBG pH (7.320-7.420) Sodium 133 L (137-145) mmol/L Potassium 4.1 (3.6-5.0) mmol/L Chloride 91.8 L (98-107) mmol/L Carbon Dioxide 19 L (22-30) mmol/L Anion Gap 26 mmol/L BUN 16 (7-17) mg/dL Creatinine 1.0 (0.6-1.2) mg/dL Estimated GFR > 60 ml/min BUN/Creatinine Ratio 16 % Glucose 397 H (65-100) mg/dL POC Glucose 418 H (70-105) mg/dL Calcium 10.5 H (8.4-10.2) mg/dL Total Bilirubin 0.70 (0.1-1.2) mg/dL AST 12 (5-40) units/L ALT 16 (7-56) units/L Alkaline Phosphatase 106 (35-129) units/L Total Protein 9.7 H (6.3-8.2) g/dL Albumin 4.6 (3.9-5) g/dL Albumin/Globulin Ratio 0.9 % Lipase 17 (13-60) units/L HCG, Qual (Negative) Urine Color (Yellow) Urine Turbidity (Clear) Urine pH (5.0-7.0) Ur Specific [place] (1.003-1.030) Urine Protein (Negative) mg/dL Urine Glucose (UA) (Negative) mg/dL Urine Ketones (Negative) mg/dL Urine Blood (Negative) Urine Nitrite (Negative) Urine Bilirubin (Negative) Urine Urobilinogen (<2.0) mg/dL Ur Leukocyte Esterase (Negative) Urine WBC (Auto) (0.0-6.0) /HPF Urine RBC (Auto) (0.0-6.0) /HPF U Epithel Cells (Auto) (0-13.0) /HPF Urine Mucus /HPF 01/20/21 01/20/21 01/20/21 Range/Units 12:43 12:43 13:32 WBC (4.5-11.0) K/mm3 RBC (3.65-5.03) M/mm3 Hgb (10.1-14.3) gm/dl Hct (30.3-42.9) % MCV (79-97) fl MCH (28-32) pg MCHC (30-34) % RDW (13.2-15.2) % Plt Count (140-440) K/mm3 Add Manual Diff Total Counted Seg Neutrophils % Seg Neuts % (Manual) (40.0-70.0) % Lymphocytes % (Manual) (13.4-35.0) % Monocytes % (Manual) (0.0-7.3) % Nucleated RBC % Seg Neutrophils # Man (1.8-7.7) K/mm3 Band Neutrophils # K/mm3 Lymphocytes # (Manual) (1.2-5.4) K/mm3 Abs React Lymphs (Man) K/mm3 Monocytes # (Manual) (0.0-0.8) K/mm3 Eosinophils # (Manual) (0.0-0.4) K/mm3 Basophils # (Manual) (0.0-0.1) K/mm3 Metamyelocytes # K/mm3 Myelocytes # K/mm3 Promyelocytes # K/mm3 Blast Cells # K/mm3 WBC Morphology Hypersegmented Neuts Hyposegmented Neuts Hypogranular Neuts Smudge Cells Toxic Granulation Toxic Vacuolation Dohle Bodies Pelger-Huet Anomaly Donald Rods Platelet Estimate Clumped Platelets Plt Clumps, EDTA Large Platelets Giant Platelets Platelet Satelliting Plt Morphology Comment RBC Morphology Dimorphic RBCs Polychromasia Hypochromasia Poikilocytosis Anisocytosis Microcytosis Macrocytosis Spherocytes Pappenheimer Bodies Sickle Cells Target Cells Tear Drop Cells Ovalocytes Helmet Cells Ibrahim-Glenaire Bodies [place] Rings [place] Cells Bite Cells Crenated Cell Elliptocytes Acanthocytes (Spur) Rouleaux Hemoglobin C Crystals Schistocytes Malaria parasites Jim Bodies Hem Pathologist Commnt VBG pH 7.468 H (7.320-7.420) Sodium (137-145) mmol/L Potassium (3.6-5.0) mmol/L Chloride (98-107) mmol/L Carbon Dioxide (22-30) mmol/L Anion Gap mmol/L BUN (7-17) mg/dL Creatinine (0.6-1.2) mg/dL Estimated GFR ml/min BUN/Creatinine Ratio % Glucose (65-100) mg/dL POC Glucose 366 H (70-105) mg/dL Calcium (8.4-10.2) mg/dL Total Bilirubin (0.1-1.2) mg/dL AST (5-40) units/L ALT (7-56) units/L Alkaline Phosphatase (35-129) units/L Total Protein (6.3-8.2) g/dL Albumin (3.9-5) g/dL Albumin/Globulin Ratio % Lipase (13-60) units/L HCG, Qual Negative (Negative) Urine Color (Yellow) Urine Turbidity (Clear) Urine pH (5.0-7.0) Ur Specific [place] (1.003-1.030) Urine Protein (Negative) mg/dL Urine Glucose (UA) (Negative) mg/dL Urine Ketones (Negative) mg/dL Urine Blood (Negative) Urine Nitrite (Negative) Urine Bilirubin (Negative) Urine Urobilinogen (<2.0) mg/dL Ur Leukocyte Esterase (Negative) Urine WBC (Auto) (0.0-6.0) /HPF Urine RBC (Auto) (0.0-6.0) /HPF U Epithel Cells (Auto) (0-13.0) /HPF Urine Mucus /HPF 01/20/21 01/20/21 Range/Units 14:34 14:43 WBC (4.5-11.0) K/mm3 RBC (3.65-5.03) M/mm3 Hgb (10.1-14.3) gm/dl Hct (30.3-42.9) % MCV (79-97) fl MCH (28-32) pg MCHC (30-34) % RDW (13.2-15.2) % Plt Count (140-440) K/mm3 Add Manual Diff Total Counted Seg Neutrophils % Seg Neuts % (Manual) (40.0-70.0) % Lymphocytes % (Manual) (13.4-35.0) % Monocytes % (Manual) (0.0-7.3) % Nucleated RBC % Seg Neutrophils # Man (1.8-7.7) K/mm3 Band Neutrophils # K/mm3 Lymphocytes # (Manual) (1.2-5.4) K/mm3 Abs React Lymphs (Man) K/mm3 Monocytes # (Manual) (0.0-0.8) K/mm3 Eosinophils # (Manual) (0.0-0.4) K/mm3 Basophils # (Manual) (0.0-0.1) K/mm3 Metamyelocytes # K/mm3 Myelocytes # K/mm3 Promyelocytes # K/mm3 Blast Cells # K/mm3 WBC Morphology Hypersegmented Neuts Hyposegmented Neuts Hypogranular Neuts Smudge Cells Toxic Granulation Toxic Vacuolation Dohle Bodies Pelger-Huet Anomaly Donald Rods Platelet Estimate Clumped Platelets Plt Clumps, EDTA Large Platelets Giant Platelets Platelet Satelliting Plt Morphology Comment RBC Morphology Dimorphic RBCs Polychromasia Hypochromasia Poikilocytosis Anisocytosis Microcytosis Macrocytosis Spherocytes Pappenheimer Bodies Sickle Cells Target Cells Tear Drop Cells Ovalocytes Helmet Cells Ibrahim-Glenaire Bodies [place] Rings Yluia Cells Bite Cells Crenated Cell Elliptocytes Acanthocytes (Spur) Rouleaux Hemoglobin C Crystals Schistocytes Malaria parasites Jim Bodies Hem Pathologist Commnt VBG pH (7.320-7.420) Sodium (137-145) mmol/L Potassium (3.6-5.0) mmol/L Chloride (98-107) mmol/L Carbon Dioxide (22-30) mmol/L Anion Gap mmol/L BUN (7-17) mg/dL Creatinine (0.6-1.2) mg/dL Estimated GFR ml/min BUN/Creatinine Ratio % Glucose (65-100) mg/dL POC Glucose 349 H (70-105) mg/dL Calcium (8.4-10.2) mg/dL Total Bilirubin (0.1-1.2) mg/dL AST (5-40) units/L ALT (7-56) units/L Alkaline Phosphatase (35-129) units/L Total Protein (6.3-8.2) g/dL Albumin (3.9-5) g/dL Albumin/Globulin Ratio % Lipase (13-60) units/L HCG, Qual (Negative) Urine Color Yellow (Yellow) Urine Turbidity Clear (Clear) Urine pH 5.0 (5.0-7.0) Ur Specific [place] 1.025 (1.003-1.030) Urine Protein >500 (Negative) mg/dL Urine Glucose (UA) >=500 (Negative) mg/dL Urine Ketones 20 (Negative) mg/dL Urine Blood Neg (Negative) Urine Nitrite Neg (Negative) Urine Bilirubin Neg (Negative) Urine Urobilinogen < 2.0 (<2.0) mg/dL Ur Leukocyte Esterase Neg (Negative) Urine WBC (Auto) 1.0 (0.0-6.0) /HPF Urine RBC (Auto) < 1.0 (0.0-6.0) /HPF U Epithel Cells (Auto) 2.0 (0-13.0) /HPF Urine Mucus Few /HPF Vital Signs 01/20/21 12:30 Temperature 98.0 F Pulse Rate 127 H Respiratory 20 Rate Blood Pressure 185/115 O2 Sat by Pulse 99 Oximetry LABS NOTED KETONES NEG PH NORMAL UA NOTED XRAY NAP MEDICATED WITH NS 2L/ INSULIN IV X 2/ REGLAN X 2 MEDICATED FOR PAIN- PT REQUESTING OVER AND OVER NARCOTICS LONG DISCUSSION WITH PT REGARDING DM/BG CONTROL AND HER OTHER HEALTH ISSUES SUCH GASTROPAR. ON REEVAL FOR DC PT IS IN NAD SHE HAS HAD NO N/V SINCE ADMIT TO ER SHE IS TAKING PO PT BEING DC HOME WITH DC PLAN OF CARE INCLUDING DIET, ACTIVITY, HYDRATION, MEDS AND FOLLOW UP. SHE VERBALIZES UNDERSTANDING OF THE PLAN OF CARE - Differential Diagnosis DKA/HHNK/INFECTION/GASTROP. Critical care attestation.: If time is entered above; I have spent that time in minutes in the direct care of this critically ill patient, excluding procedure time. ED Disposition Clinical Impression: Hyperglycemia, Morbid obesity, Uncontrolled hypertension, Non-adherence to medical treatment, Gastroparesis, Drug-seeking behavior Disposition: 01 HOME / SELF CARE / HOMELESS Is pt being admited?: No Does the pt Need Aspirin: No Condition: Stable Instructions: Hyperglycemia, [id number], Hypertension (ED) Additional Instructions: diabetic diet stay well hydrated with water take your meds daily FOLLOW UP WITH PCP VLDAIMIR REFERRAL BELOW THEY CAN HELP WITH BETTER CONTROL OF YOUR DM WHICH WILL HELP YOUR OTHER MEDICAL CONDITIONS Referrals: PRIMARY CAREMD [Primary Care Provider] - 3-5 Days RICARDO ALBERTS MD [Staff Physician] - 3-5 Days Time of Disposition: 16:02
[2021-01-20 13:10] LABS: Hematocrit 39.6 % (30.3-42.9); Hemoglobin 12.3 gm/dl (10.1-14.3); Mean Corpuscular HGB Conc 31 % (30-34); Mean Corpuscular Volume 84 fl (79-97); Platelet Count 456 K/mm3 (140-440); Red Cell Distribution Width 14.1 % (13.2-15.2)
[2021-01-20 13:28] LABS: Alanine Aminotransferase 16 units/L (7-56); Albumin 4.6 g/dL (3.9-5); BUN/Creatinine Ratio 16; Blood Urea Nitrogen 16 mg/dL (7-17); Calcium 10.5 mg/dL (8.4-10.2); Hemolysis Index 5
[2021-01-20 13:47] LABS: Platelet Estimate Consistent w Auto; RBC Morphology Normal; Total Cells Counted 100
[2021-01-20] MEDS ORDERED: METOCLOPRAMIDE 10 MG/2 ML INJ IV ONE ×2 (13:48→16:17)
[2021-01-20] MEDS ORDERED: ACETAMINOPHEN 500 MG TAB PO ONE (13:48)
--- NOTE | 2021-01-20 14:06 | XRay Report ---
CHEST 2 VIEWS INDICATION / CLINICAL INFORMATION: SOB. COMPARISON: 12/29/2020 FINDINGS: SUPPORT DEVICES: None. HEART / MEDIASTINUM: No significant abnormality. LUNGS / PLEURA: No significant pulmonary or pleural abnormality. No pneumothorax. ADDITIONAL FINDINGS: No significant additional findings. IMPRESSION: 1. No acute findings. Signer Name: Demario Rivas MD Signed: 01/20/2021 2:02 PM Workstation Name: [email or web address]
[2021-01-20] MEDS: SODIUM CHLORIDE 0.9% 1000 ML 1,000 ML IV ONE ×2 (15:34→16:18)
[2021-01-20 15:48] LABS: Bilirubin,Urine NEG (Negative); Blood,Urine NEG (Negative); Color,Urine Yellow (Yellow); Mucus,Urine FEW /HPF; RBC,Urine < 1.0 /HPF (0.0-6.0); Urobilinogen,Urine < 2.0 mg/dL (<2.0)
[2021-01-20 15:49] LABS: Protein,Urine >500 mg/dL (Negative)
[2021-01-20] MEDS ORDERED: hydrALAZINE 20 MG/1 ML INJ IV ONE (16:01)
[2021-01-20] MEDS: INSULIN REGULAR, HUMAN 100 UNITS/1 ML IV ONE ×2 (16:28→18:40)
[2021-01-20 20:00] VITALS: BP 122/67
== END 2021-01-20 21:12 | disposition home or self-care (01) ==
LOC: ED 12:16
DX: E11.65 Type 2 diabetes mellitus with hyperglycemia (principal); I10 Essential (primary) hypertension; E11.43 Type 2 diabetes mellitus with diabetic autonomic (poly)neuropathy; K31.84 Gastroparesis; E66.01 Morbid (severe) obesity due to excess calories; R46.89 Other symptoms and signs involving appearance and behavior; Z91.14 Patient's other noncompliance with medication regimen; Z68.41 Body mass index [BMI] 40.0-44.9, adult; Z88.6 Allergy status to analgesic agent; Z88.8 Allergy status to other drugs, medicaments and biological substances; Z79.4 Long term (current) use of insulin; Z79.899 Other long term (current) drug therapy
CPT/HCPCS: 36415; 71046; 80053; 81001; 82805; 82962; 83690; 84703; 85007; 85025; 96361; 96374; 96375; 96376; 99284; J0360; J2765; J7030; J1815